=== PATIENT | female | born 1945 | race Caucasian/White ===

== ENCOUNTER → 2016-07-19 | Outpatient (CLI) | payer MEDICARE ==
[~2016-07-19] MED LIST: ALBU25IPRN INH; ALBU8I INH; AZIT250T3 PO; BENZ100 PO; CARV3.125 PO; FURO1TAB62 PO; FURO20 PO; OXYGENTANK NAS.CANULA; SPIRCAP INH; VENTAER INH
[2016-07-19 08:17] LABS: AUTOMATED NEUTROPHIL # 3.2 TH/MM3 (1.8-7.7); BASOPHIL % 0.9 % (0.0-2.0); EOSINOPHIL # 0.2 TH/MM3 (0-0.4); EOSINOPHIL % 4.2 % (0.0-4.0); HEMATOCRIT 40.4 % (35.0-46.0); HEMO FLAGS DIFF FINAL; LYMPH % 22.4 % (9.0-44.0); LYMPHOCYTE # 1.2 TH/MM3 (1.0-4.8); MEAN CELL VOLUME 94.3 FL (80.0-100.0); MEAN CORPUSCULAR HEMOGLOBIN 31.5 PG (27.0-34.0); MEAN CORPUSCULAR HGB CONC 33.4 % (32.0-36.0); MONO % 11.3 % (0.0-8.0); NEUT % 61.2 % (16.0-70.0); PLATELET COUNT 232 TH/MM3 (150-450); RED BLOOD COUNT 4.29 MIL/MM3 (4.00-5.30); RED CELL DISTRIBUTION WIDTH 13.9 % (11.6-17.2); WHITE BLOOD COUNT 5.3 TH/MM3 (4.0-11.0)
[2016-07-19 08:23] LABS: ANION GAP 7 MEQ/L (5-15); AST (GOT) 20 U/L (15-37); BICARBONATE 27.2 MEQ/L (21.0-32.0); BLOOD UREA NITROGEN 14 MG/DL (7-18); CHLORIDE 106 MEQ/L (98-107); GLOMERULAR FILTRATION RATE 56 ML/MIN (>89); GLUCOSE,FASTING 109 MG/DL (74-99); POTASSIUM 4.7 MEQ/L (3.5-5.1); SODIUM (NA) 140 MEQ/L (136-145)
[2016-07-19 08:56] LABS: ALKALINE PHOSPHATASE 78 U/L (45-117); ALT (GPT) 41 U/L (10-53); FREE T4 1.09 NG/DL (0.76-1.46); HDL CHOLESTEROL 40.2 MG/DL (40.0-60.0); LDL CHOLESTEROL 102 MG/DL (0-99); TOTAL BILIRUBIN ADULT 0.7 MG/DL (0.2-1.0)
[2016-07-19 15:58] LABS: HEMOGLOBIN A1a 1.3 %; HEMOGLOBIN A1b 0.8 %; HEMOGLOBIN Ao 85.3 %; HEMOGLOBIN F 0.8 %; HEMOGLOBIN P3 3.8 %
== END ==
LOC: CLAB 07:32
PROVIDERS: ATTEND Family Medicine
DX: J44.0 Chronic obstructive pulmonary disease with (acute) lower respiratory infection (principal); I50.30 Unspecified diastolic (congestive) heart failure; E55.9 Vitamin D deficiency, unspecified; Z79.899 Other long term (current) drug therapy; I10 Essential (primary) hypertension; E03.8 Other specified hypothyroidism
CPT/HCPCS: 36415; 80053; 80061; 82306; 82607; 83036; 84439; 84443; 84480; 85025

== ENCOUNTER → 2016-08-22 | Outpatient (CLI) | payer MEDICARE ==
[2016-08-22 10:07] LABS: AUTOMATED NEUTROPHIL # 5.2 TH/MM3 (1.8-7.7); BASOPHIL # 0.1 TH/MM3 (0-0.2); EOSINOPHIL # 0.1 TH/MM3 (0-0.4); EOSINOPHIL % 2.1 % (0.0-4.0); HEMATOCRIT 40.6 % (35.0-46.0); HEMO FLAGS DIFF FINAL; LYMPH % 14.4 % (9.0-44.0); MEAN CELL VOLUME 93.4 FL (80.0-100.0); MEAN CORPUSCULAR HEMOGLOBIN 30.8 PG (27.0-34.0); MONO % 9.2 % (0.0-8.0); NEUT % 73.3 % (16.0-70.0); PLATELET COUNT 220 TH/MM3 (150-450); RED BLOOD COUNT 4.35 MIL/MM3 (4.00-5.30); WHITE BLOOD COUNT 7.1 TH/MM3 (4.0-11.0)
== END ==
LOC: CLAB 09:36
PROVIDERS: ATTEND Family Medicine
DX: D64.9 Anemia, unspecified (principal); E61.1 Iron deficiency
CPT/HCPCS: 36415; 82607; 85025

== ENCOUNTER 2016-09-02 10:49 | Inpatient (IN) | payer MEDICARE ==
[2016-09-02] VITALS (7 sets, daily range): BP systolic 104–133; BP diastolic 55–78; PULSE 84–98; RESP 16–20; TEMP 97.2–97.8; O2SAT 92–98
[~2016-09-02] VITALS: Ht 162.6 cm; Wt 55.5 kg
[~2016-09-02 10:49] MED LIST changes: -AZIT250T3 PO; -BENZ100 PO; -FURO1TAB62 PO; -OXYGENTANK NAS.CANULA; -VENTAER INH
[2016-09-02] MEDS ORDERED: methylPREDNISolone SOD SUCC 125 MG/2 ML VIAL IVP ONE (11:30)
[2016-09-02] MEDS ORDERED: RESP: ALBUTEROL 2.5 MG/IPRATROPIUM 0.5 MG NEB (SCH) INH ONE (11:30)
[2016-09-02] MEDS ORDERED: SODIUM CHLORIDE 0.9% FLUSH 10 ML FLUSH IVF PRN (11:30)
--- NOTE | 2016-09-02 11:33 | PD ---
HPI Chief Complaint: Respiratory Symptoms Time Seen by Provider: 11:28 Travel History International Travel<30 days: No Contact w/Intl Traveler<30days: No Traveled to known affect area: No History of Present Illness HPI 71-year-old female presents to the emergency department for evaluation of shortness of breath. She states she has been having intermittent symptoms over the past 3 months, but these worsened in the past 3 days. She reports increasing shortness of breath, especially at night. She states she cannot lay flat and will wake up and have to sit up due to dyspnea. The patient reports history of COPD, CHF. She states that she is due to have an aortic valve replacement in October. Her electromechanical equipment assembler is Dr. Morales. Her primary care physician is Dr. Fierro. She does state that she had radiation done in February 2016 for lung nodules. She is not currently undergoing any chemotherapy or radiation. Patient states that she was having abdominal bloating for the past 3 days. However, this has resolved. She states that when she has abdominal bloating, she feels like it pushes up and causes be short of breath. She currently denies any abdominal pain. No nausea, vomiting, diarrhea. She states she was admitted in October 2015 for CHF and had to undergo a thoracentesis due to fluid in her lungs. She reports similar feeling this time. Patient denies any recent surgery or travel. No hemoptysis. She denies any leg edema. No history DVT or PE. Patient is fully tachycardic upon my exam with heart rate in the low 100s. Patient states she has some minor left lower chest pain with coughing only. She denies any fevers or chills. She states she saw her primary care physician earlier this month and was given amoxicillin and cough syrup for a sinus infection. Patient is a current tobacco smoker. PFSH Past Medical History Arthritis: Yes Asthma: No Anxiety: Yes Depression: Yes (POST ) Cancer: Yes (L BREAST CA 2002, LUNG CANCER 2016) Cardiovascular Problems: No High Cholesterol: No Chemotherapy: Yes Chest Pain: No Congestive Heart Failure: Yes COPD: Yes Diabetes: No Diminished Hearing: No Endocrine: No Genitourinary: No Hepatitis: No Hiatal Hernia: No Hypertension: Yes Immune Disorder: No Implanted Vascular Access Dvce: Yes (PORT R CHEST ) Musculoskeletal: Yes (ARTHRITIS) Neurologic: No Psychiatric: No Reproductive: No Respiratory: Yes Radiation Therapy: Yes Sleep Apnea: No Thyroid Disease: No ?: Not : 3 Para: 2 Miscarriage: 1 : 0 Past Surgical History AICD: No Body Medical Devices: CHEMOPORT, HARDWARE LEFT ANKLE Joint Replacement: No Oral Surgery: Yes (DENTAL EXTRACTION) Pacemaker: No Thoracic Surgery: Yes (AXILLARY LYMPH NODE DISECTION, LUMPECTOMY) Other Surgery: Yes (PORT PLACEMENT) Social History Alcohol Use: No Tobacco Use: Yes (1/2 PPD) Substance Use: No Allergies-Medications (Allergen,Severity, Reaction): Coded Allergies: Oxycodone (Verified Allergy, Severe, VOMITING, 09/02/16) Morphine (Verified Adverse Reaction, Unknown, nausea and vomiting, 09/02/16) Reported Meds & Prescriptions Reported Meds & Active Scripts Active Reported Tessalon Perles (Benzonatate) 100 Mg Cap 100 Mg PO DAILY Lasix (Furosemide) 20 Mg Tab 20 Mg PO DAILY Coreg (Carvedilol) 3.125 Mg Tab 3.125 Mg PO BID Review of Systems Except as stated in HPI: all other systems reviewed are Neg Physical Exam Narrative GENERAL: Well-nourished, well-developed elderly female patient, ambulatory. Afebrile. SKIN: Focused skin assessment warm/dry. HEAD: Normocephalic. Atraumatic. EYES: No scleral icterus. No injection or drainage. NECK: Supple, trachea midline. No JVD or lymphadenopathy. CARDIOVASCULAR: Regular rhythm without murmurs, gallops, or rubs. Patient is slightly tachycardic with heart rate in the low 100s. RESPIRATORY: Breath sounds equal bilaterally. No accessory muscle use. Lungs sounds with minor expiratory wheezes noted throughout. GASTROINTESTINAL: Abdomen soft, non-tender, nondistended. No abdominal pain to palpation. MUSCULOSKELETAL: No cyanosis, or edema. BACK: Nontender without obvious deformity. No CVA tenderness. Data Data Last Documented VS Vital Signs Date Time Temp Pulse Resp B/P Pulse Ox O2 Delivery O2 Flow Rate FiO2 09/02/16 11:59 95 Room Air 09/02/16 11:59 20 09/02/16 11:45 21 09/02/16 10:54 97.8 84 133/78 Orders Complete Blood Count With Diff (09/02/16 11:26) Comprehensive Metabolic Panel (09/02/16 11:26) B-Type Natriuretic Peptide (09/02/16 11:26) D-Dimer (09/02/16 11:26) Magnesium (Mg) (09/02/16 11:26) Ckmb (Isoenzyme) Profile (09/02/16 11:26) Troponin I (09/02/16 11:26) Iv Access Insert/Monitor (09/02/16 11:26) Electrocardiogram (09/02/16 11:26) Ecg Monitoring (09/02/16 11:26) Oximetry (09/02/16 11:26) Oxygen Administration (09/02/16 11:26) Chest, Single Ap (09/02/16 11:26) Sodium Chloride 0.9% Flush (Ns Flush) (09/02/16 11:30) Methylprednisolone So Succ Inj (Solumedr (09/02/16 11:30) Albuterol-Ipratropium Neb (Duoneb Neb) (09/02/16 11:30) Lipase (09/02/16 11:26) Furosemide Inj (Lasix Inj) (09/02/16 12:30) Ct Pulmonary Angiogram (09/02/16 ) CKMB (09/02/16 11:45) CKMB% (09/02/16 11:45) Labs Laboratory Tests Test 09/02/16 11:45 White Blood Count 8.2 TH/MM3 Red Blood Count 4.62 MIL/MM3 Hemoglobin 14.2 GM/DL Hematocrit 43.5 % Mean Corpuscular Volume 94.2 FL Mean Corpuscular Hemoglobin 30.7 PG Mean Corpuscular Hemoglobin 32.6 % Concent Red Cell Distribution Width 14.6 % Platelet Count 258 TH/MM3 Mean Platelet Volume 10.4 FL Neutrophils (%) (Auto) 69.7 % Lymphocytes (%) (Auto) 17.9 % Monocytes (%) (Auto) 8.7 % Eosinophils (%) (Auto) 2.2 % Basophils (%) (Auto) 1.5 % Neutrophils # (Auto) 5.8 TH/MM3 Lymphocytes # (Auto) 1.5 TH/MM3 Monocytes # (Auto) 0.7 TH/MM3 Eosinophils # (Auto) 0.2 TH/MM3 Basophils # (Auto) 0.1 TH/MM3 CBC Comment DIFF FINAL Differential Comment D-Dimer Quantitative (PE/DVT) 0.92 MG/L FEU Sodium Level 134 MEQ/L Potassium Level 5.0 MEQ/L Chloride Level 101 MEQ/L Carbon Dioxide Level 25.3 MEQ/L Anion Gap 8 MEQ/L Blood Urea Nitrogen 12 MG/DL Creatinine 0.97 MG/DL Estimat Glomerular Filtration 57 ML/MIN Rate Random Glucose 146 MG/DL Calcium Level 8.8 MG/DL Magnesium Level 2.1 MG/DL Total Bilirubin 1.0 MG/DL Aspartate Amino Transf 54 U/L (AST/SGOT) Alanine Aminotransferase 45 U/L (ALT/SGPT) Alkaline Phosphatase 74 U/L Total Creatine Kinase 165 U/L Creatine Kinase MB 1.5 NG/ML Troponin I 0.06 NG/ML B-Type Natriuretic Peptide 1639 PG/ML Total Protein 7.5 GM/DL Albumin 3.4 GM/DL Lipase 74 U/L [facility] Medical Decision Making Medical Screen Exam Complete: Yes Emergency Medical Condition: Yes Medical Record Reviewed: Yes Interpretation(s) Last Impressions Chest X-Ray 09/02/16 1126 Signed Impressions: Service Date/Time: Friday, September 02, 2016 11:34 - CONCLUSION: Increasing congestive failure. Benson Condon MD FACR Differential Diagnosis COPD versus CHF versus PE versus URI versus bronchitis versus pneumonia Narrative Course 71-year-old female presents to the emergency department for evaluation of worsening shortness of breath, unable to lay flat for the past 3 days. EKG, CBC , CMP, lipase, CK, troponin, BNP, magnesium, d-dimer are ordered and pending. Chest x-ray is ordered and pending. Patient is given DuoNeb 1 and Solu-Medrol 125 mg IV. EKG shows sinus rhythm, no acute ST changes, heart rate 97. CBC is unremarkable. CMP shows sodium 134, glucose 146. Lipase is 74. CK is 165. Troponin is slightly elevated at 0.06. BNP is 1639. Magnesium is 2.1. D- dimer is elevated 0.92. Chest x-ray shows moderate pleural effusion present on the left occupying approximately one third of left hemothorax. CT pulmonary angiogram is ordered and pending. I spoke to Dr. Fierro's nurse practitioner, Susie, who accepted admission. She is aware that CT pulmonary angiogram is pending. Diagnosis Primary Impression: Pleural effusion Additional Impressions: Systolic CHF Qualified Code: I50.23 - Acute on chronic systolic congestive heart failure Elevated troponin Admitting Information Admitting Physician Requests: Admit Ingrid Gutierres Sep 02, 2016 11:33
[2016-09-02 12:06] LABS: AUTOMATED NEUTROPHIL # 5.8 TH/MM3 (1.8-7.7); BASOPHIL # 0.1 TH/MM3 (0-0.2); BASOPHIL % 1.5 % (0.0-2.0); EOSINOPHIL # 0.2 TH/MM3 (0-0.4); EOSINOPHIL % 2.2 % (0.0-4.0); HEMATOCRIT 43.5 % (35.0-46.0); HEMO FLAGS DIFF FINAL; LYMPH % 17.9 % (9.0-44.0); LYMPHOCYTE # 1.5 TH/MM3 (1.0-4.8); MEAN CELL VOLUME 94.2 FL (80.0-100.0); MEAN CORPUSCULAR HEMOGLOBIN 30.7 PG (27.0-34.0); MEAN CORPUSCULAR HGB CONC 32.6 % (32.0-36.0); MONO % 8.7 % (0.0-8.0); NEUT % 69.7 % (16.0-70.0); PLATELET COUNT 258 TH/MM3 (150-450); RED BLOOD COUNT 4.62 MIL/MM3 (4.00-5.30); RED CELL DISTRIBUTION WIDTH 14.6 % (11.6-17.2); WHITE BLOOD COUNT 8.2 TH/MM3 (4.0-11.0)
[2016-09-02] MEDS ORDERED: FURO1TAB62 PO (12:09)
[2016-09-02] MEDS ORDERED: BENZ100 PO (12:09)
[2016-09-02] MEDS ORDERED: CARV3.125 PO (12:09)
--- NOTE | 2016-09-02 12:14 | RADRPT ---
EXAM DATE/TIME: 09/02/2016 11:34 [facility] COMPARISON: CHEST SINGLE AP, October 14, 2015, 9:44. INDICATIONS : Shortness of breath. MEDICAL HISTORY : Carcinoma, breast. Carcinoma, lung. Congestive heart failure. Chronic obstructive pulmonary disea se. Emphysema. SURGICAL HISTORY : None. ENCOUNTER: Initial ACUITY: 2 weeks PAIN SCORE: 0/10 LOCATION: Chest FINDINGS: PICC line is in good position. Right lung is clear. Moderate pleural effusion is present on the lef t occupying approximately one-third of the left hemithorax. Heart is minimally enlarged. Mild inter stitial edema is present. CONCLUSION: Increasing congestive failure. Benson Condon MD FACR on September 02, 2016 at 12:08 Board Certified Radiologist. This report was verified electronically.
[2016-09-02] MEDS ORDERED: FUROSEMIDE 40 MG/4 ML VIAL IV PUSH ONE (12:30)
[2016-09-02 12:48] LABS: ALKALINE PHOSPHATASE 74 U/L (45-117); ALT (GPT) 45 U/L (10-53); ANION GAP 8 MEQ/L (5-15); AST (GOT) 54 U/L (15-37); BICARBONATE 25.3 MEQ/L (21.0-32.0); BLOOD UREA NITROGEN 12 MG/DL (7-18); CHLORIDE 101 MEQ/L (98-107); CREATINE KINASE 165 U/L (26-192); GLOMERULAR FILTRATION RATE 57 ML/MIN (>89); MAGNESIUM 2.1 MG/DL (1.5-2.5); SODIUM (NA) 134 MEQ/L (136-145)
[2016-09-02 13:05] LABS: CKMB 1.5 NG/ML (0.5-3.6)
--- NOTE | 2016-09-02 14:13 | PD ---
Physical Exam Date Seen by Provider: Sep 02, 2016 Time Seen by Provider: 12:50 Narrative I, Dr. Lozada, have reviewed the advance practice practitioner's documentation and am in agreement, met with the patient face to face, made the diagnosis, and the medical decision making was done by me. *My assessment and Findings: Patient seen and evaluated with PA, here with shortness of breath and dyspnea on exertion, please see PA note for further details. Patient has decreased breath sounds at the bases, crackles bibasilarly. Previous history of COPD and CHF. Initially started on treatment for both. However, lab work returns showing significant BNP elevation and chest x-ray negative of CHF with pleural effusion. At this point, patient was given Lasix and my plan would be to admit the patient for further treatment. Laboratory Tests Test 09/02/16 11:45 Monocytes (%) (Auto) 8.7 % (0.0-8.0) D-Dimer Quantitative (PE/DVT) 0.92 MG/L FEU (0.00-0.50) Sodium Level 134 MEQ/L (136-145) Estimat Glomerular Filtration 57 ML/MIN (>89) Rate Random Glucose 146 MG/DL (74-106) Aspartate Amino Transf 54 U/L (15-37) (AST/SGOT) Troponin I 0.06 NG/ML (0.02-0.05) B-Type Natriuretic Peptide 1639 PG/ML (0-100) Last 24 hours Impressions Chest X-Ray 09/02/16 1126 Signed Impressions: Service Date/Time: Friday, September 02, 2016 11:34 - CONCLUSION: Increasing congestive failure. Benson Condon MD FACR Data Data Last Documented VS Vital Signs Date Time Temp Pulse Resp B/P Pulse Ox O2 Delivery O2 Flow Rate FiO2 09/02/16 11:59 95 Room Air 09/02/16 11:59 20 09/02/16 11:45 21 09/02/16 10:54 97.8 84 133/78 Orders Complete Blood Count With Diff (09/02/16 11:26) Comprehensive Metabolic Panel (09/02/16 11:26) B-Type Natriuretic Peptide (09/02/16 11:26) D-Dimer (09/02/16 11:26) Magnesium (Mg) (09/02/16 11:26) Ckmb (Isoenzyme) Profile (09/02/16 11:26) Troponin I (09/02/16 11:26) Iv Access Insert/Monitor (09/02/16 11:26) Electrocardiogram (09/02/16 11:26) Ecg Monitoring (09/02/16 11:26) Oximetry (09/02/16 11:26) Oxygen Administration (09/02/16 11:26) Chest, Single Ap (09/02/16 11:26) Sodium Chloride 0.9% Flush (Ns Flush) (09/02/16 11:30) Methylprednisolone So Succ Inj (Solumedr (09/02/16 11:30) Albuterol-Ipratropium Neb (Duoneb Neb) (09/02/16 11:30) Lipase (09/02/16 11:26) Furosemide Inj (Lasix Inj) (09/02/16 12:30) Ct Pulmonary Angiogram (09/02/16 ) CKMB (09/02/16 11:45) CKMB% (09/02/16 11:45) Admit Order (Ed Use Only) (09/02/16 13:56) Labs Laboratory Tests Test 09/02/16 11:45 White Blood Count 8.2 TH/MM3 Red Blood Count 4.62 MIL/MM3 Hemoglobin 14.2 GM/DL Hematocrit 43.5 % Mean Corpuscular Volume 94.2 FL Mean Corpuscular Hemoglobin 30.7 PG Mean Corpuscular Hemoglobin 32.6 % Concent Red Cell Distribution Width 14.6 % Platelet Count 258 TH/MM3 Mean Platelet Volume 10.4 FL Neutrophils (%) (Auto) 69.7 % Lymphocytes (%) (Auto) 17.9 % Monocytes (%) (Auto) 8.7 % Eosinophils (%) (Auto) 2.2 % Basophils (%) (Auto) 1.5 % Neutrophils # (Auto) 5.8 TH/MM3 Lymphocytes # (Auto) 1.5 TH/MM3 Monocytes # (Auto) 0.7 TH/MM3 Eosinophils # (Auto) 0.2 TH/MM3 Basophils # (Auto) 0.1 TH/MM3 CBC Comment DIFF FINAL Differential Comment D-Dimer Quantitative (PE/DVT) 0.92 MG/L FEU Sodium Level 134 MEQ/L Potassium Level 5.0 MEQ/L Chloride Level 101 MEQ/L Carbon Dioxide Level 25.3 MEQ/L Anion Gap 8 MEQ/L Blood Urea Nitrogen 12 MG/DL Creatinine 0.97 MG/DL Estimat Glomerular Filtration 57 ML/MIN Rate Random Glucose 146 MG/DL Calcium Level 8.8 MG/DL Magnesium Level 2.1 MG/DL Total Bilirubin 1.0 MG/DL Aspartate Amino Transf 54 U/L (AST/SGOT) Alanine Aminotransferase 45 U/L (ALT/SGPT) Alkaline Phosphatase 74 U/L Total Creatine Kinase 165 U/L Creatine Kinase MB 1.5 NG/ML Troponin I 0.06 NG/ML B-Type Natriuretic Peptide 1639 PG/ML Total Protein 7.5 GM/DL Albumin 3.4 GM/DL Lipase 74 U/L [facility] Medical Record Reviewed: Yes Supervised Visit with ROXY: Yes Diagnosis Primary Impression: Pleural effusion Additional Impressions: Systolic CHF Qualified Code: I50.23 - Acute on chronic systolic congestive heart failure Elevated troponin Admitting Information Admitting Physician Requests: Admit Neelam Lozada MD Sep 02, 2016 14:13
[2016-09-02] MEDS ORDERED: IBUPROFEN 400 MG TAB PO PRN (14:15)
[2016-09-02] MEDS ORDERED: ONDANSETRON HCL 4 MG/2 ML VIAL IVP PRN (14:15)
[2016-09-02] MEDS ORDERED: ACETAMINOPHEN 325 MG TAB PO PRN ×2 (14:15)
[2016-09-02] MEDS ORDERED: BISACODYL 10 MG SUPP RECTAL PRN (14:15)
[2016-09-02] MEDS ORDERED: IOHEXOL 350 MG/ML 10 ML VIAL (for RAD DIAG) IV ONE (14:36)
--- NOTE | 2016-09-02 14:44 | RADRPT ---
EXAM DATE/TIME: 09/02/2016 14:21 [facility] COMPARISON: CT PULMONARY ANGIOGRAM, October 07, 2015, 18:20. INDICATIONS : Shortness of breath for three days. IV CONTRAST: 70 cc Omnipaque 350 (iohexol) IV RADIATION DOSE: 20.76 CTDIvol (mGy) MEDICAL HISTORY : Chronic obstructive pulmonary disease. Congestive heart failure. Carcinoma, lung. SURGICAL HISTORY : Lumpectomy, lymph node dissection ENCOUNTER: Initial ACUITY: 3 days PAIN SCALE: 0/10 LOCATION: Bilateral chest TECHNIQUE: Volumetric scanning of the chest was performed using a pulmonary embolism protocol MIP images were re constructed. Using automated exposure control and adjustment of the mA and/or kV according to patien t size, radiation dose was kept as low as reasonably achievable to obtain optimal diagnostic quality images. FINDINGS: Coarse interstitial changes are seen throughout both lungs. There is a small pleural effusion occupy ing approximately 20% of the left hemithorax. The heart is enlarged. There is reflux of contrast into the hepatic veins. This can be seen with ri ght heart failure. There is good visualization of the central pulmonary vessels. There is no evidence for central pulmo nary emboli. There is no pericardial effusion. CONCLUSION: Cardiomegaly with mild congestive failure with a left pleural effusion occupying approximately 20% of the left hemithorax. Benson Condon MD FACR on September 02, 2016 at 14:39 Board Certified Radiologist. This report was verified electronically.
[2016-09-03] VITALS (8 sets, daily range): BP systolic 94–100; BP diastolic 51–63; PULSE 73–102; RESP 20–26; TEMP 97.4–97.6; O2SAT 93–96
--- NOTE | 2016-09-03 00:06 | EKG ---
Date Performed: 09/02/2016 Time Performed: 11:54:55 PTAGE: 71 years EKG: Sinus rhythm WITH OCCASIONAL SUPRAVENTRICULAR PREMATURE COMPLEXES ST DEVIATION AND MODERATE T-WAVE ABNORMALITY, C ONSIDER LATERAL ISCHEMIA ABNORMAL ECG PREVIOUS TRACING : 10/09/2015 11.22 DOCTOR: Cynthia Berumen Interpretating Date/Time 09/03/2016 00:05:13
[2016-09-03 08:30] LABS: ALKALINE PHOSPHATASE 68 U/L (45-117); ALT (GPT) 32 U/L (10-53); ANION GAP 10 MEQ/L (5-15); AST (GOT) 14 U/L (15-37); BICARBONATE 26.2 MEQ/L (21.0-32.0); BLOOD UREA NITROGEN 17 MG/DL (7-18); CHLORIDE 101 MEQ/L (98-107); GLOMERULAR FILTRATION RATE 62 ML/MIN (>89); POTASSIUM 3.9 MEQ/L (3.5-5.1); SODIUM (NA) 137 MEQ/L (136-145); TOTAL BILIRUBIN ADULT 0.7 MG/DL (0.2-1.0)
--- NOTE | 2016-09-03 09:54 | HHI.HP ---
History of Present Illness Primary Care Physician Jayme Fierro, DO Admission Diagnosis CHF exacerbation, left pleural effusion, elevated troponin Diagnoses: (1) Pleural effusion Diagnosis: Principal (2) Cardiomyopathy Diagnosis: Principal (3) COPD (chronic obstructive pulmonary disease) History of Present Illness pt presented to ED with progressive SOB she has had problems with breathing for some time she scheduled for an aortic valve replacement and sees dr Morales he had recently referred her to cv surgery for repair/replacement or TAVR she became dyspenic before she was able to make her appointment. cxr upoadm to ED showed large left pleural effusion she was diuresed and is more comfortable now Review of Systems Constitutional: COMPLAINS OF: Fatigue Cardiovascular: COMPLAINS OF: Dyspnea on Exertion Past Family Social History Allergies: Coded Allergies: Oxycodone (Verified Allergy, Severe, VOMITING, 09/02/16) Morphine (Verified Adverse Reaction, Unknown, nausea and vomiting, 09/02/16) Past Medical History chf aortic stenosis left breast cancer Past Surgical History orif left ankle left breast lumpectomy Reported Medications Current Medications Medications (Trade) Dose Ordered Sig/Tamir Route PRN Reason Start Time Stop Time Status Last Admin Dose Admin Sodium Chloride (NS Flush) 2 ml UNSCH PRN IVF FLUSH AFTER USING IV ACCESS 09/02/16 11:30 Acetaminophen (Tylenol) 650 mg Q4H PRN PO TEMP > 100.4 09/02/16 14:15 Ondansetron HCl (Zofran Inj) 4 mg Q6H PRN IVP NAUSEA OR VOMITING 09/02/16 14:15 Bisacodyl (Dulcolax Supp) 10 mg DAILY PRN RECTAL CONSTIPATION 09/02/16 14:15 Acetaminophen (Tylenol) 650 mg Q6H PRN PO PAIN SCALE 1 TO 2 09/02/16 14:15 Ibuprofen (Motrin) 400 mg Q6H PRN PO PAIN SCALE 1 TO 2 09/02/16 14:15 Active Ordered Medications Current Medications Medications (Trade) Dose Ordered Sig/Tamir Route PRN Reason Start Time Stop Time Status Last Admin Dose Admin Sodium Chloride (NS Flush) 2 ml UNSCH PRN IVF FLUSH AFTER USING IV ACCESS 09/02/16 11:30 Acetaminophen (Tylenol) 650 mg Q4H PRN PO TEMP > 100.4 09/02/16 14:15 Ondansetron HCl (Zofran Inj) 4 mg Q6H PRN IVP NAUSEA OR VOMITING 09/02/16 14:15 Bisacodyl (Dulcolax Supp) 10 mg DAILY PRN RECTAL CONSTIPATION 09/02/16 14:15 Acetaminophen (Tylenol) 650 mg Q6H PRN PO PAIN SCALE 1 TO 2 09/02/16 14:15 Ibuprofen (Motrin) 400 mg Q6H PRN PO PAIN SCALE 1 TO 2 09/02/16 14:15 Family History father with heart disease mother with sepsis Social History has now decided to stop smoking does not drink Physical Exam Vital Signs Vital Signs Date Time Temp Pulse Resp B/P Pulse Ox O2 Delivery O2 Flow Rate FiO2 09/03/16 08:00 97.4 74 20 95/53 93 09/03/16 06:28 90 09/03/16 04:00 97.6 73 20 95/52 96 09/03/16 00:00 97.6 74 20 100/54 95 09/02/16 20:00 97.2 85 20 104/55 92 09/02/16 18:15 94 21 09/02/16 16:30 97.7 85 20 114/69 93 09/02/16 15:00 98 18 129/70 95 Nasal Cannula 2 09/02/16 11:59 95 Room Air 09/02/16 11:59 20 95 Room Air 09/02/16 11:45 94 21 09/02/16 11:07 22 09/02/16 10:54 97.8 84 16 133/78 98 Physical Exam GENERAL: This is a well-nourished, well-developed patient, in no apparent distress. SKIN: No rashes, ecchymoses or lesions. Cool and dry. HEAD: Atraumatic. Normocephalic. No temporal or scalp tenderness. EYES: Pupils equal round and reactive. Extraocular motions intact. No scleral icterus. No injection or drainage. ENT: Nose without bleeding, purulent drainage or septal hematoma. Throat without erythema, tonsillar hypertrophy or exudate. Uvula midline. Airway patent. NECK: Trachea midline. No JVD or lymphadenopathy. Supple, nontender, no meningeal signs. CARDIOVASCULAR: Regular rate and rhythm without murmurs, gallops, or rubs. RESPIRATORY: diminished sounds left side and bases GASTROINTESTINAL: Abdomen soft, non-tender, nondistended. No hepato-splenomegaly , or palpable masses. No guarding. MUSCULOSKELETAL: Extremities without clubbing, cyanosis, or edema. No joint tenderness, effusion, or edema noted. No calf tenderness. Negative Homans sign bilaterally. NEUROLOGICAL: Awake and alert. Cranial nerves II through XII intact. Motor and sensory grossly within normal limits. Five out of 5 muscle strength in all muscle groups. Normal speech. Laboratory Laboratory Tests Test 09/02/16 09/03/16 11:45 06:50 White Blood Count 8.2 Red Blood Count 4.62 Hemoglobin 14.2 Hematocrit 43.5 Mean Corpuscular Volume 94.2 Mean Corpuscular Hemoglobin 30.7 Mean Corpuscular Hemoglobin 32.6 Concent Red Cell Distribution Width 14.6 Platelet Count 258 Mean Platelet Volume 10.4 Neutrophils (%) (Auto) 69.7 Lymphocytes (%) (Auto) 17.9 Monocytes (%) (Auto) 8.7 Eosinophils (%) (Auto) 2.2 Basophils (%) (Auto) 1.5 Neutrophils # (Auto) 5.8 Lymphocytes # (Auto) 1.5 Monocytes # (Auto) 0.7 Eosinophils # (Auto) 0.2 Basophils # (Auto) 0.1 CBC Comment DIFF FINAL Differential Comment D-Dimer Quantitative (PE/DVT) 0.92 Sodium Level 134 137 Potassium Level 5.0 3.9 Chloride Level 101 101 Carbon Dioxide Level 25.3 26.2 Anion Gap 8 10 Blood Urea Nitrogen 12 17 Creatinine 0.97 0.90 Estimat Glomerular Filtration 57 62 Rate Random Glucose 146 96 Calcium Level 8.8 8.9 Magnesium Level 2.1 Total Bilirubin 1.0 0.7 Aspartate Amino Transf 54 14 (AST/SGOT) Alanine Aminotransferase 45 32 (ALT/SGPT) Alkaline Phosphatase 74 68 Total Creatine Kinase 165 Creatine Kinase MB 1.5 Troponin I 0.06 B-Type Natriuretic Peptide 1639 Total Protein 7.5 6.7 Albumin 3.4 2.9 Lipase 74 Result Diagram: 09/02/16 1145 09/03/16 0650 Imaging Last 48 hours Impressions Chest X-Ray 09/02/16 1126 Signed Impressions: Service Date/Time: Friday, September 02, 2016 11:34 - CONCLUSION: Increasing congestive failure. Benson Condon MD FACR CT Angiography 09/02/16 0000 Signed Impressions: Service Date/Time: Friday, September 02, 2016 14:21 - CONCLUSION: Cardiomegaly with mild congestive failure with a left pleural effusion occupying approximately 20%% of the left hemithorax. Benson Condon MD FACR Course pt diuresed in ED and sent to 1400 in stable condition Assessment and Plan Problem List: (1) Cardiomyopathy Status: Acute (2) COPD (chronic obstructive pulmonary disease) Status: Acute (3) Pleural effusion Status: Acute (4) S/P thoracentesis Status: Acute (5) CHF (congestive heart failure) Status: Acute Plan: improved will continue diuresis and consult cardiology Assessment and Plan cardiology consult nay need surgical/interventional consult foe valve repair/ replacement Discussed Condition With patient Problem Qualifiers (1) COPD (chronic obstructive pulmonary disease): Qualified Code: J44.9 - Chronic obstructive pulmonary disease, unspecified COPD type Jayme Fierro DO Sep 03, 2016 09:54
[2016-09-03] MEDS: TIOTROPIUM BROMIDE 18 MCG INH INH SCH (13:00)
[2016-09-03] MEDS: ALBUTEROL SULFATE 90 MCG/ACT HFA 18 GM INHALER INH SCH ×2 (13:33→16:56)
--- NOTE | 2016-09-03 17:16 | OTSOAPIP ---
TIME SESSION COMPLETED: PM TREATMENT TIME: 0 MINS. CHART REVIEWED. ATTEMPTED TO SEE FOR OT ASSESSMENT HOWEVER RECEIVING NURSING CARE. WILL FOLLOW NEXT DAY. Therapist: IVONNE COONEY OT/Paola Signature on file
[2016-09-03] MEDS: CARVEDILOL 3.125 MG TAB PO SCH (21:00)
[2016-09-04] VITALS (9 sets, daily range): BP systolic 90–98; BP diastolic 52–57; PULSE 77–119; RESP 18–20; TEMP 97.2–98.4; O2SAT 94–98
[2016-09-04 08:13] LABS: AUTOMATED NEUTROPHIL # 7.6 TH/MM3 (1.8-7.7); BASOPHIL # 0.1 TH/MM3 (0-0.2); BASOPHIL % 0.7 % (0.0-2.0); EOSINOPHIL # 0.2 TH/MM3 (0-0.4); EOSINOPHIL % 1.6 % (0.0-4.0); HEMATOCRIT 41.7 % (35.0-46.0); HEMO FLAGS DIFF FINAL; LYMPH % 12.5 % (9.0-44.0); LYMPHOCYTE # 1.2 TH/MM3 (1.0-4.8); MEAN CELL VOLUME 92.9 FL (80.0-100.0); MEAN CORPUSCULAR HEMOGLOBIN 30.8 PG (27.0-34.0); MEAN CORPUSCULAR HGB CONC 33.2 % (32.0-36.0); MONO % 8.8 % (0.0-8.0); NEUT % 76.4 % (16.0-70.0); PLATELET COUNT 229 TH/MM3 (150-450); RED BLOOD COUNT 4.49 MIL/MM3 (4.00-5.30); RED CELL DISTRIBUTION WIDTH 14.6 % (11.6-17.2); WHITE BLOOD COUNT 9.9 TH/MM3 (4.0-11.0)
--- NOTE | 2016-09-04 08:32 | MB ---
cc: EMILY MORALES HANSCY M.D. KHANNA, SOHIT K. MD [facility] DATE OF CONSULTATION: 09/03/2016 REASON FOR CONSULTATION Shortness of breath, uncompensated heart failure. HISTORY OF PRESENT ILLNESS Mrs. Lugo is a 71-year-old female with a history of breast cancer around 2002. She had previous lymph node resection and chemotherapy. She was found in October with a left lung mass. She received radiation therapy. She had a pleural effusion that was drained at that time. She had aortic stenosis that was evaluated by Dr. Morales and referred for valve replacement or TAVR. She is supposed to have an appointment next week with the CV surgeon at [facility]. She developed in the past couple of days shortness of breath. She had a left pleural effusion. I was consulted for further evaluation and management. The chart was reviewed. The patient was evaluated. ALLERGIES 1. OXYCODONE. 2. MORPHINE. SOCIAL HISTORY Negative for smoking and drinking. FAMILY HISTORY Noncontributory to her current medical condition. MEDICATIONS 1. Acetaminophen. 2. Coreg. 3. Lasix. 4. Ibuprofen. 5. Spiriva. REVIEW OF SYSTEMS Currently she refers no chest pain, shortness of breath improved. No vomiting. No fever. PHYSICAL EXAMINATION GENERAL: Alert, fully oriented. VITAL SIGNS: Blood pressure 100/63, pulse 97, respiratory rate 20. LUNGS: Decreased left-sided ventilation. CARDIOVASCULAR: S1, S2. There is no murmur. ABDOMEN: Soft. No mass. EXTREMITIES: No edema. ELECTROCARDIOGRAM Electrocardiogram shows sinus rhythm, LVH, diffuse ST changes. LABORATORY Hemoglobin 14.2, white blood cell count 8.2. Potassium 3.9. Creatinine 0.90. Troponin 0.06. BNP around 1640. ASSESSMENT AND RECOMMENDATION Mrs. Lugo is currently stable. She is doing better. There is a left pleural effusion. Shortness of breath has significantly improved. Blood pressure is too low to optimize medication. She was managed between 95/50 to 95/53. This is the first time today she is 100 of systolic. At this point my recommendation is to continue with current management. She is supposed to have her appointment with CV surgery for valve surgery. I am going to place a consult to Dr. Pablo. Further evaluation in the morning by Dr. Morales. Case discussed with the patient. MD CHRISTINA Wolf /3:55 PM /8:22 AM
[2016-09-04] MEDS ORDERED: FUROSEMIDE 20 MG TAB PO SCH (09:00)
[2016-09-04] MEDS: CARVEDILOL 3.125 MG TAB PO SCH ×3 (09:00→21:00)
[2016-09-04] MEDS: TIOTROPIUM BROMIDE 18 MCG INH INH SCH (09:26)
[2016-09-04] MEDS: BENZONATATE 100 MG CAP PO SCH (09:26)
[2016-09-04] MEDS: FUROSEMIDE 20 MG TAB PO SCH ×2 (09:26→20:20)
[2016-09-04] MEDS: ALBUTEROL SULFATE 90 MCG/ACT HFA 18 GM INHALER INH SCH ×3 (09:26→18:00)
--- NOTE | 2016-09-04 09:33 | RADRPT ---
EXAM DATE/TIME: 09/04/2016 09:08 [facility] COMPARISON: CHEST SINGLE AP, September 02, 2016, 11:34. INDICATIONS : Short of breath, coughing for 3 months MEDICAL HISTORY : Carcinoma, breast. Carcinoma, lung. Chronic obstructive pulmonary disease. CHF, emphysema SURGICAL HISTORY : infusaport and removal of infusaport ENCOUNTER: Subsequent ACUITY: 2 weeks PAIN SCORE: 0/10 LOCATION: Bilateral chest FINDINGS: Moderate left pleural effusion appears slightly improved. Left base consolidation is again noted. Pat leeanna interstitial thickening is present elsewhere in both lungs. Visualized cardiac contours are stabl e. Thoracic skeleton is grossly intact. CONCLUSION: Slightly improved left base aeration Tomasz Vaughan MD on September 04, 2016 at 9:30 Board Certified Radiologist. This report was verified electronically.
[2016-09-05] VITALS (9 sets, daily range): BP systolic 90–127; BP diastolic 50–65; PULSE 70–93; RESP 18–20; TEMP 96–98.5; O2SAT 95–98
[2016-09-05] MEDS: TIOTROPIUM BROMIDE 18 MCG INH INH SCH (08:39)
[2016-09-05] MEDS: CARVEDILOL 3.125 MG TAB PO SCH ×2 (08:39→20:34)
[2016-09-05] MEDS: ALBUTEROL SULFATE 90 MCG/ACT HFA 18 GM INHALER INH SCH ×3 (08:39→18:24)
[2016-09-05] MEDS: FUROSEMIDE 20 MG TAB PO SCH (08:39)
[2016-09-05] MEDS: BENZONATATE 100 MG CAP PO SCH (08:40)
[2016-09-05] MEDS ORDERED: guaiFENesin/DEXTROMETHORPHAN 200 MG/20 MG/10 ML CUP PO PRN (14:30)
--- NOTE | 2016-09-05 14:38 | HHI.PR ---
Subjective History of Present Illness PT SEEN SOB NO CP PALPITATIONS TOOK 02 OFF TO WALK DESATURATED DR BENZ CONSULTED CASE D/W DR RECIO-WOULD LIKE HER TO BE SEEN BY DR AREVALO-CALLED WILL SEE 09/20 IN HIS [facility] OFFICE VOIDING WELL ROBIN LOW 98/60 Review of Systems Constitutional Constitutional: Fatigue, Weakness Pulmonary Respiratory: Shortness of Breath Cardiology CV: Palpitations GI/Abdomen GI/Abdominal Exam: Positive Bowel Movement Genitourinary Genitourinary: Frequency Musculoskeletal MS: Weakness, Discomfort/Pain Neurologic Neurologic: Dizziness Psychiatric Psychiatric: Normal Mood Endocrine Endocrine: Thirst Vitals/Results Intake & Output 09/04/16 09/04/16 09/05/16 15:00 23:00 07:00 Intake Total 840 ml 120 ml 240 ml Balance 840 ml 120 ml 240 ml Intake Oral 840 ml 120 ml 240 ml # Voids 3 0 0 # Bowel Movements 1 0 0 Vital Signs Vital Signs Date Time Temp Pulse Resp B/P Pulse Ox O2 Delivery O2 Flow Rate FiO2 09/05/16 12:00 98.5 78 20 90/61 98 09/05/16 08:08 98 Nasal Cannula 2.00 09/05/16 08:00 97.5 73 20 95/62 97 09/05/16 04:00 97.6 75 18 91/50 96 09/05/16 00:00 97.8 83 20 91/54 97 09/04/16 20:01 78 09/04/16 20:00 97.5 77 18 90/53 95 09/04/16 16:00 98.4 78 18 90/53 97 CBC/BMP: 09/04/16 0746 09/03/16 0650 Physical Exam General General Appearance: Well Developed, No Acute Distress, Malnourished Eyes Eye Exam: Pupils Equal, Pupils Reactive, Sclera White, Extraocular Movement Intact Ears & Nose Ears & Nose Exam: Tympanic Membranes Normal, Auditory Canals Normal, Nasal Mucosa [place], Septum Midline Throat Throat Exam: Oral Mucosa [place] & Moist, Oral Pharynx Normal Neck Neck Exam: Neck Supple, Trachea Midline Pulmonary Resp Exam: Crackles, Decreased Bases, Diminished Breath Sounds Cardiology CV Exam: Regular, Normal Sinus Rhythm, Tachycardia Chest/Breast Chest/Breast Exam: Symmetry Gastrointestinal/Abdomen GI Exam: Soft, Non-Tender, Bowel Sounds Present, Positive Bowel Movement, Peristalsis, No Hepatosplenomegaly, Non-Distended Musculoskeletal MS Exam: Joints Intact, Normal Gait, Normal Tone, Good Strength Integumentary Skin Exam: Clear, Warm, Dry, Intact Extremeties Extremities Exam: No Edema, Pedal Pulses Palpable Neurologic Neuro Exam: Alert, Awake, Oriented, Speech Clear, Moving All Extremities, Progress Worker Equal, No Focal Deficits Psychiatric Psych Exam: Appropriate Responses VTE Prophylaxis VTE Prophylaxis Device: SCDs PUD Prophylasis PUD Prophylaxis: Protonix Assessment/Plan Problem List: (1) CHF (congestive heart failure) Plan: PLAN; PPI 02 IS LASIX DC IBUPROFEN HOLD COREG- BP LOW CASE D/W DR RECIO EVALUATE FOR TAVR CASE D/W DR DEMAR MELCHOR MAG/TSH PT EVAL BNP-1200 REPEAT CXR AM WALKING POX HAS APPOINT WITH DR AREVALO 09/20 1:[address] [facility] ECHO-FAX TO [facility] 40 MINUTES (2) Cardiomyopathy (3) Pleural effusion (4) COPD (chronic obstructive pulmonary disease) (5) Systolic CHF (6) Elevated troponin Discussed Condition with: Patient, Medical Consult Problem Qualifiers (1) COPD (chronic obstructive pulmonary disease): Qualified Code: J44.9 - Chronic obstructive pulmonary disease, unspecified COPD type (2) Systolic CHF: Qualified Code: I50.23 - Acute on chronic systolic congestive heart failure Loni Lee DO Sep 05, 2016 14:38
[2016-09-05] MEDS: AZITHROMYCIN 250 MG TAB PO SCH (17:02)
[2016-09-05] MEDS ORDERED: FUROSEMIDE 20 MG/2 ML VIAL IV PUSH SCH (18:00)
[2016-09-05 18:59] LABS: BICARBONATE 30.8 MEQ/L (21.0-32.0); MAGNESIUM 2.2 MG/DL (1.5-2.5)
--- NOTE | 2016-09-05 19:01 | EC ---
Study Study Date:09/05/2016 STUDY CONCLUSIONS SUMMARY - Left ventricle: The cavity size was dilated. Wall thickness was normal. Systolic function was severely reduced. The estimated ejection fraction was in the range of 20% to 25%. Diffuse hypokinesis. - Aortic valve: Moderately calcified annulus. Trileaflet; moderately calcified leaflets. Transvalvular velocity was increased, due to low cardiac output and stenosis. There was severe stenosis. - Mitral valve: Moderate regurgitation. - Pericardium, extracardiac: There was a left pleural effusion. If LV function is below 40, please consider prescribing an ACEI or ARB or document rationale for non-use. PROCEDURE DATA STUDY STATUS: Elective. Procedure: Transthoracic echocardiography. Image quality was good. Scanning was performed from the parasternal, apical, and subcostal acoustic windows. Study completion: The patient tolerated the procedure well. Transthoracic echocardiography. M-mode, complete 2D, complete spectral Doppler, and color Doppler. Patient status: Inpatient. CARDIAC ANATOMY LEFT VENTRICLE: The cavity size was dilated. Wall thickness was normal. Systolic function was severely reduced. The estimated ejection fraction was in the range of 20% to 25%. Diffuse hypokinesis. AORTIC VALVE: Moderately calcified annulus. Trileaflet; moderately calcified leaflets. Doppler: Transvalvular velocity was increased, due to low cardiac output and stenosis. There was severe stenosis. No regurgitation. Mean gradient: 31mm Hg (S). Peak gradient: 49mm Hg (S). AORTA: Aortic root: The aortic root was normal in size. MITRAL VALVE: Structurally normal valve. Doppler: Transvalvular velocity was within the normal range. There was no evidence for stenosis. Moderate regurgitation. Peak gradient: 3mm Hg (D). LEFT ATRIUM: The atrium was normal in size. RIGHT VENTRICLE: The cavity size was normal. Wall thickness was normal. PULMONIC VALVE: Doppler: Transvalvular velocity was within the normal range. There was no evidence for stenosis. No regurgitation. TRICUSPID VALVE: Structurally normal valve. Doppler: Transvalvular velocity was within the normal range. No regurgitation. PULMONARY ARTERY: The main pulmonary artery was normal-sized. Systolic pressure was within the normal range. RIGHT ATRIUM: The atrium was normal in size. PERICARDIUM: There was no pericardial effusion. SYSTEMIC VEINS: Inferior vena cava: The vessel was normal in size. Pleura: There was a left pleural effusion. BASIC MEASUREMENTS ADULT Normal Left ventricle LV internal dimension, ED, chordal level, *62.7 mm 43-52 PLAX LV internal dimension, ES, chordal level, *57.6 mm 23-38 PLAX Fractional shortening, chordal level, PLAX *8 % >29 LV posterior wall thickness, ED 7.9 mm IVS/LVPW ratio, ED 1.01 <1.3 Ventricular septum Septal thickness, ED 7.95 mm Aorta Root diameter, ED 24 mm Left atrium Anterior-posterior dimension 35 mm DOPPLER MEASUREMENTS ADULT Normal Aortic valve Peak velocity, S 350 cm/s Mean velocity, S 257 cm/s VTI, S 89 cm Mean gradient, S 31 mm Hg Peak gradient, S 49 mm Hg Regurgitant velocity, ED 263 cm/s Regurgitant deceleration 4040 cm/s^2 Regurgitant pressure half-time 286 ms Regurgitant gradient, ED 28 mm Hg Mitral valve Peak E-wave velocity 85.5 cm/s Peak A-wave velocity 32.7 cm/s Deceleration time *106 ms 150-230 Peak gradient, D 3 mm Hg Peak E/A ratio 2.6 Tricuspid valve Regurgitant peak velocity 297 cm/s Peak RV-RA gradient, S 35 mm Hg Maximal regurgitant velocity 297 cm/s LEGEND: Mean values are shown as u=mean value. Asterisk (*) flor values outside specified normal range. Prepared and signed by Clayton Kearns [id number]
--- NOTE | 2016-09-05 21:10 | MB ---
cc: ANNIE BENZ DATE OF CONSULTATION 09/05/[address] Lee. REASON FOR CONSULTATION Evaluate shortness of breath and pleural effusion. HISTORY OF THE PRESENT ILLNESS Ms. Lugo is a 71-year-old female with history of CA of the breast status post lymph node dissection and chemotherapy, then she developed CA of the lung. She had a poorly differentiated adenocarcinoma of the lung. She received radiation therapy and she follows with Dr. Parks. She has aortic stenosis and was being considered for open surgery or TAVR. She has an appointment to see Dr. Patton on September 20 for evaluation for TAVR. The patient came to the hospital with worsening of her shortness of breath. Denies any chest pain. Has cough, small amount of sputum production. No fever or chills. No night sweats. She had a workup done. Her WBC 9.9, hemoglobin 13.8, hematocrit 41.7, MCV 92, platelet count 229. Sodium 113, potassium 4.0, chloride 100, CO2 30, BUN 24, creatinine 1.07. PAST MEDICAL HISTORY Significant for: 1. A history of severe COPD. 2. Aortic stenosis. 3. CA of the lung status post radiation treatment. 4. CA of the breast status post surgery and chemotherapy. MEDICATIONS She is currently takin. Lasix 20 milligrams. 2. Zithromax 500 mg a day. 3. Robitussin DM cough syrup. 4. Tessalon 100 milligrams. 5. Coreg 3.125 milligrams twice a day. 6. Albuterol nebulizer treatments. 7. Spiriva once a day. ALLERGIES SHE IS ALLERGIC TO MORPHINE AND OXYCODONE. SOCIAL HISTORY She has a long history of smoking which she cut down to a few cigarettes. No alcohol abuse. She was still working at [employer] until recently. FAMILY HISTORY She is , lives alone. She has two children. Her grandchildren live nearby who help her. REVIEW OF SYSTEMS She has lost some weight. No hemoptysis. No DVT or pulmonary embolism. No seizure . PHYSICAL EXAMINATION GENERAL: Thin built, elderly female in mild short of breath. VITAL SIGNS: Blood pressure 90/65, heart rate 70, respirations 18, temperature 96. HEENT: Pupils are equal and reactive to light. She has bilateral cataracts. Oral mucosa, nasal mucosa normal. NECK: Supple. JVP not raised. CHEST: She has a few rhonchi. Decreased breath sounds at the left base. CARDIOVASCULAR: S1, S2 normal. ABDOMEN: Benign. EXTREMITIES: No edema. IMPRESSION 1. Moderate-sized left pleural effusion. 2. Severe COPD. 3. Aortic stenosis. 4. Cancer of the lung status post radiation treatment. 5. History of cancer of the breast status post chemotherapy and surgery. 6. Nicotine use. PLAN I advised her not to smoke. She is being evaluated for aortic valve surgery or TAVR. I will get interventional radiology to do thoracentesis and send it for culture, sensitivity and cytology. I advised her strongly to quit smoking. Continue aerosol treatment. Continue Spiriva. Further treatment will depend on the course in the hospital. Thank you Dr. Lee for this consultation. MD ROGER Duffy/STANLEY /7:07 PM /8:42 PM CAROLINE
[2016-09-05 23:16] LABS: APTT (PATIENT) 26.2 SEC (24.3-30.1); PROTHROMBIN TIME - PATIENT 11.4 SEC (9.8-11.6)
[2016-09-06] VITALS (11 sets, daily range): BP systolic 90–113; BP diastolic 50–69; PULSE 66–85; RESP 16–20; TEMP 97–98.2; O2SAT 94–98
--- NOTE | 2016-09-06 06:19 | RADRPT ---
EXAM DATE/TIME: 09/06/2016 06:07 [facility] COMPARISON: CHEST PA & LAT, September 04, 2016, 9:08. INDICATIONS : Shortness of breath. MEDICAL HISTORY : Carcinoma, breast. Carcinoma, lung. Congestive heart failure. Chronic SURGICAL HISTORY : None. ENCOUNTER: Subsequent ACUITY: 4 - 6 days PAIN SCORE: 0/10 LOCATION: Bilateral chest FINDINGS: PA and I'll views of the chest show hyperinflation. Emphysematous changes noted. Small left effusion is stable. No discrete infiltrate. Heart is mildly enlarged. An osteopenic spine is noted. A scolioti c curvature noted. CONCLUSION: 1. Stable small left effusion. 2. COPD. 3. Mild cardiomegaly. Eusebio Downing Jr., MD on September 06, 2016 at 6:17 Board Certified Radiologist. This report was verified electronically.
[2016-09-06 08:15] LABS: ALT (GPT) 23 U/L (10-53); AST (GOT) 13 U/L (15-37); BLOOD UREA NITROGEN 22 MG/DL (7-18); CHLORIDE 101 MEQ/L (98-107); GLOMERULAR FILTRATION RATE 66 ML/MIN (>89); POTASSIUM 4.1 MEQ/L (3.5-5.1); SODIUM (NA) 138 MEQ/L (136-145)
[2016-09-06 08:18] LABS: ALKALINE PHOSPHATASE 65 U/L (45-117); ANION GAP 8 MEQ/L (5-15); BICARBONATE 29.4 MEQ/L (21.0-32.0); TOTAL BILIRUBIN ADULT 0.7 MG/DL (0.2-1.0)
--- NOTE | 2016-09-06 08:27 | PD.CARD.PN ---
Subjective Subjective Remarks Briefly talked with the patient as she was being taken down to radiology for thoracentesis. her breathing is improved. no CP Objective Medications Active Medications Azithromycin (Zithromax) 500 mg Q24H PO Last administered on 09/05/16 17:02; Admin Dose 500 MG; Start 09/05/16 at 15:00 Furosemide (Lasix Inj) 20 mg BID@09,18 IV PUSH Last administered on 09/05/16 18: 23; Admin Dose 20 MG; Start 09/05/16 at 18:00; Stop 09/06/16 at 08:17; Status DC Guaifenesin/ Dextromethorphan (Robitussin Dm 200-20 Mg/10 ml Liq) 10 ml Q6H PRN PO; Start 09/05/16 at 14:30 Vital Signs / I&O Vital Signs Date Time Temp Pulse Resp B/P Pulse Ox O2 Delivery O2 Flow Rate FiO2 09/06/16 08:16 97.0 75 16 96/56 98 09/06/16 04:00 97.0 66 16 96/56 95 09/06/16 00:00 97.8 69 20 90/55 97 09/05/16 20:00 97.3 92 18 127/59 95 09/05/16 19:45 93 09/05/16 19:39 98 Nasal Cannula 2.00 09/05/16 18:16 Nasal Cannula 2.00 09/05/16 16:00 96.0 70 18 90/65 98 09/05/16 12:00 98.5 78 20 90/61 98 I/O 09/05/16 09/05/16 09/05/16 09/06/16 09/06/16 09/06/16 07:00 15:00 23:00 07:00 15:00 23:00 Intake Total 240 ml 480 ml Output Total 1000 ml 4400 ml Balance 240 ml 480 ml -1000 ml -4400 ml Intake Oral 240 ml 480 ml Output Urine Total 1000 ml 4400 ml # Voids 0 3 # Bowel Movements 0 1 2 Physical Exam NECK: Supple, trachea midline. No JVD or lymphadenopathy. CARDIOVASCULAR: Regular rate and rhythm 3/6 SM RESPIRATORY: Breath sounds equal bilaterally. No accessory muscle use. GASTROINTESTINAL: Abdomen soft, non-tender, nondistended. MUSCULOSKELETAL: No cyanosis, or edema. BACK: Nontender without obvious deformity. No CVA tenderness. Laboratory Laboratory Tests Test 09/05/16 09/05/16 09/06/16 18:15 21:38 07:10 Sodium Level 139 MEQ/L 138 MEQ/L Potassium Level 4.0 MEQ/L 4.1 MEQ/L Chloride Level 100 MEQ/L 101 MEQ/L Carbon Dioxide Level 30.8 MEQ/L 29.4 MEQ/L Anion Gap 8 MEQ/L 8 MEQ/L Blood Urea Nitrogen 24 MG/DL 22 MG/DL Creatinine 1.07 MG/DL 0.85 MG/DL Estimat Glomerular Filtration 51 ML/MIN 66 ML/MIN Rate Random Glucose 113 MG/DL 88 MG/DL Calcium Level 8.8 MG/DL 9.0 MG/DL Magnesium Level 2.2 MG/DL Thyroid Stimulating Hormone 2.130 uIU/ML 3rd Gen Prothrombin Time 11.4 SEC Prothromb Time International 1.0 RATIO Ratio Activated Partial 26.2 SEC Thromboplast Time Total Bilirubin 0.7 MG/DL Aspartate Amino Transf 13 U/L (AST/SGOT) Alanine Aminotransferase 23 U/L (ALT/SGPT) Alkaline Phosphatase 65 U/L Total Protein 6.8 GM/DL Albumin 3.0 GM/DL Imaging Last Impressions Chest X-Ray 09/06/16 0600 Signed Impressions: Service Date/Time: Tuesday, September 06, 2016 06:07 - CONCLUSION: 1. Stable small left effusion. 2. COPD. 3. Mild cardiomegaly. Eusebio Downing Jr., MD CT Angiography 09/02/16 0000 Signed Impressions: Service Date/Time: Friday, September 02, 2016 14:21 - CONCLUSION: Cardiomegaly with mild congestive failure with a left pleural effusion occupying approximately 20%% of the left hemithorax. Benson Condon MD FACR Assessment and Plan Assessment and Plan Aortic stenosis - severe. low gradient due to cardiomyopathy and reduced cardiac output. High risk for traditional AVR. Extensive cardiac workup has already been done including right and left heart catheterization at [facility] Clinically improved now. acute on chronic systolic CHF - change lasix to PO. Cr stable. due to hypotension, she will not tolerate titration of medical therapy, ie JEROME or ARB. cont BB as HR and BP allow. lung ca s/p radiation. undergoing thoracentesis now. DC planning. referal already in place for TAVR evaluation at [facility] with Dr. Patton/ Dr. Doll. will follow. Ari Morales MD Sep 06, 2016 08:27
--- NOTE | 2016-09-06 08:47 | RADRPT ---
EXAM DATE/TIME: 09/06/2016 08:04 [facility] COMPARISON: EXTERNAL COMPARISON: US GUIDED THORACENTESIS LEFT, October 08, 2015, 10:35. [facility], CT THORAX, W/O CONTRAST, Jul 11 2016, April 14, 2016. INDICATIONS : Left pleural effusion. MEDICAL HISTORY : Carcinoma, breast. Carcinoma, lung. Congestive heart failure. Heart murmur. Dyspnea. Arthritis. COPD. HTN. SURGICAL HISTORY : Axillary lymph node disection. Lumpectomy. Thoracentesis. Left leg and ankle surgery. Chemotherapy. R adiation therapy. ENCOUNTER: Subsequent ACUITY: 3 days PAIN SCORE: 0/10 LOCATION: Left chest FLUID: Total volume of 450 cc of clear, yellow fluid was removed. Fluid was sent to lab for ordered studies. TECHNIQUE: 1. Ultrasound guidance for thoracentesis. 2. Thoracentesis. The risks, benefits, and alternatives to ultrasound guided thoracentesis were explained to the patien t in lay simple terms, including the risk of bleeding and infection. Written and verbal informed con sent was obtained. Appropriate area for thoracentesis was marked under ultrasound guidance with the patient in the uprig ht position. Overlying skin was prepped and draped in the usual sterile fashion and with local anest hetic, a dermatotomy was made with an 11 blade scalpel. A 6 Green[place]ic thoracentesis catheter was placed in the pleural space and fluid was removed. Catheter was then removed and a sterile dressing applie d. There were no immediate complications. The patient tolerated the procedure well and the left the ultrasound suite in stable condition. Chest radiograph is to be obtained. CONCLUSION: Uncomplicated ultrasound guided thoracentesis. Fluid was sent for ordered studies. Benson Condon MD FACR on September 06, 2016 at 8:45 Board Certified Radiologist. This report was verified electronically.
--- NOTE | 2016-09-06 08:59 | RADRPT ---
EXAM DATE/TIME: 09/06/2016 08:42 [facility] COMPARISON: CHEST PA & LAT, September 06, 2016, 6:07. INDICATIONS : Evaluate for pneumothorax, post thoracentsis MEDICAL HISTORY : Carcinoma, breast. Carcinoma, lung. Congestive heart failure. SURGICAL HISTORY : None. ENCOUNTER: Subsequent ACUITY: 4 - 6 days PAIN SCORE: 0/10 LOCATION: Bilateral chest FINDINGS: There is no evidence of pneumothorax. Left effusion and basilar consolidative change appear slightly worse than on recent earlier film. Lungs elsewhere are again notable for fine patchy interstitial inf iltrate. Mild apical pleural thickening is again noted. Visualized cardiac contours are grossly stabl e. CONCLUSION: No pneumothorax Tomasz Vaughan MD on September 06, 2016 at 8:55 Board Certified Radiologist. This report was verified electronically.
[2016-09-06] MEDS: CARVEDILOL 3.125 MG TAB PO SCH ×2 (09:00→20:25)
[2016-09-06 09:26] LABS: TOTAL PROTEIN,PLEURAL FLUID 2.6 GM/DL
[2016-09-06] MEDS: BENZONATATE 100 MG CAP PO SCH (10:22)
[2016-09-06] MEDS: TIOTROPIUM BROMIDE 18 MCG INH INH SCH (10:23)
[2016-09-06] MEDS: ALBUTEROL SULFATE 90 MCG/ACT HFA 18 GM INHALER INH SCH ×3 (10:23→17:40)
[2016-09-06] MEDS: FUROSEMIDE 20 MG TAB PO SCH (10:29)
--- NOTE | 2016-09-06 12:42 | HHI.PR ---
Subjective History of Present Illness PT SEEN LESS SOB- S/P THORA. NO CP PALPITATIONS TOOK 02 OFF TO WALK DESATURATED DR BENZ INTO SEE HER CASE D/W MINOR VOIDING WELL BP LOW 98/60 Review of Systems Constitutional Constitutional: Fatigue, Weakness Pulmonary Respiratory: Shortness of Breath Cardiology CV: Palpitations GI/Abdomen GI/Abdominal Exam: Positive Bowel Movement Genitourinary Genitourinary: Frequency Musculoskeletal MS: Weakness, Discomfort/Pain Neurologic Neurologic: Dizziness Psychiatric Psychiatric: Normal Mood Endocrine Endocrine: Thirst Vitals/Results Intake & Output 09/05/16 09/05/16 09/06/16 15:00 23:00 07:00 Intake Total 480 ml Output Total 1000 ml 4400 ml Balance 480 ml -1000 ml -4400 ml Intake Oral 480 ml Output Urine Total 1000 ml 4400 ml # Voids 3 # Bowel Movements 1 2 Vital Signs Vital Signs Date Time Temp Pulse Resp B/P Pulse Ox O2 Delivery O2 Flow Rate FiO2 09/06/16 09:00 66 16 99/60 98 09/06/16 08:45 79 16 113/69 98 09/06/16 08:16 97.0 75 16 96/56 98 09/06/16 08:03 97.7 79 16 91/50 95 09/06/16 08:00 85 09/06/16 04:00 97.0 66 16 96/56 95 09/06/16 00:00 97.8 69 20 90/55 97 09/05/16 20:00 97.3 92 18 127/59 95 09/05/16 19:45 93 09/05/16 19:39 98 Nasal Cannula 2.00 09/05/16 18:16 Nasal Cannula 2.00 09/05/16 16:00 96.0 70 18 90/65 98 CBC/BMP: 09/04/16 0746 09/06/16 0710 Lab Results Laboratory Tests Test 09/05/16 09/05/16 09/06/16 09/06/16 18:15 21:38 07:10 08:27 Sodium Level 139 MEQ/L 138 MEQ/L Potassium Level 4.0 MEQ/L 4.1 MEQ/L Chloride Level 100 MEQ/L 101 MEQ/L Carbon Dioxide Level 30.8 MEQ/L 29.4 MEQ/L Anion Gap 8 MEQ/L 8 MEQ/L Blood Urea Nitrogen 24 MG/DL 22 MG/DL Creatinine 1.07 MG/DL 0.85 MG/DL Estimat Glomerular Filtration 51 ML/MIN 66 ML/MIN Rate Random Glucose 113 MG/DL 88 MG/DL Calcium Level 8.8 MG/DL 9.0 MG/DL Magnesium Level 2.2 MG/DL Thyroid Stimulating Hormone 2.130 uIU/ML 3rd Gen Prothrombin Time 11.4 SEC Prothromb Time International 1.0 RATIO Ratio Activated Partial 26.2 SEC Thromboplast Time Total Bilirubin 0.7 MG/DL Aspartate Amino Transf 13 U/L (AST/SGOT) Alanine Aminotransferase 23 U/L (ALT/SGPT) Alkaline Phosphatase 65 U/L Total Protein 6.8 GM/DL Albumin 3.0 GM/DL Pleural Fluid Total Protein 2.6 GM/DL Pleural Fluid LDH 86 U/L Pleural Fluid Glucose 104 MG/DL Microbiology Microbiology 09/06/16 Gram Stain - Final, Resulted 09/06/16 Body Fluid Culture, Resulted Pending Physical Exam General General Appearance: Well Developed, No Acute Distress, Malnourished Eyes Eye Exam: Pupils Equal, Pupils Reactive, Sclera White, Extraocular Movement Intact Ears & Nose Ears & Nose Exam: Tympanic Membranes Normal, Auditory Canals Normal, Nasal Mucosa [place], Septum Midline Throat Throat Exam: Oral Mucosa [place] & Moist, Oral Pharynx Normal Neck Neck Exam: Neck Supple, Trachea Midline Pulmonary Resp Exam: Crackles, Decreased Bases, Diminished Breath Sounds Cardiology CV Exam: Regular, Normal Sinus Rhythm, Tachycardia Chest/Breast Chest/Breast Exam: Symmetry Gastrointestinal/Abdomen GI Exam: Soft, Non-Tender, Bowel Sounds Present, Positive Bowel Movement, Peristalsis, No Hepatosplenomegaly, Non-Distended Musculoskeletal MS Exam: Joints Intact, Normal Gait, Normal Tone, Good Strength Integumentary Skin Exam: Clear, Warm, Dry, Intact Extremeties Extremities Exam: No Edema, Pedal Pulses Palpable Neurologic Neuro Exam: Alert, Awake, Oriented, Speech Clear, Moving All Extremities, Lower 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 CHESK CS PPI 02 IS LASIX HOLD COREG- BP LOW CASE D/W DR RECIO EVALUATE FOR TAVR CASE D/W DR DEMAR MELCHOR MAG/TSH PT EVAL BNP-1200 REPEAT CXR AM WALKING POX HAS APPOINT WITH DR AREVALO 09/20 1:30 AT [facility] ECHO-FAX TO [facility] AM 40 MINUTES (2) Cardiomyopathy (3) Pleural effusion (4) COPD (chronic obstructive pulmonary disease) (5) Systolic CHF (6) Elevated troponin Discussed Condition with: Patient, Medical Consult Problem Qualifiers (1) COPD (chronic obstructive pulmonary disease): Qualified Code: J44.9 - Chronic obstructive pulmonary disease, unspecified COPD type (2) Systolic CHF: Qualified Code: I50.23 - Acute on chronic systolic congestive heart failure Loni Lee DO Sep 06, 2016 12:42
[2016-09-06] MEDS: AZITHROMYCIN 250 MG TAB PO SCH (17:40)
--- NOTE | 2016-09-06 20:55 | HHI.PR ---
Subjective Remarks 71 YOWF with Ca lung and breast,COPD,Pl eff had Left TC done 450 cc fluid removed Breathing better has cough, small amount of sp no fever Objective Vital Signs Vital Signs Date Time Temp Pulse Resp B/P Pulse Ox O2 Delivery O2 Flow Rate FiO2 09/06/16 20:00 97.6 74 18 93/51 94 09/06/16 16:03 98.2 73 16 99/55 96 09/06/16 12:04 97.7 76 16 98/54 97 09/06/16 09:00 66 16 99/60 98 09/06/16 08:45 79 16 113/69 98 09/06/16 08:16 97.0 75 16 96/56 98 09/06/16 08:03 97.7 79 16 91/50 95 09/06/16 08:00 85 09/06/16 04:00 97.0 66 16 96/56 95 09/06/16 00:00 97.8 69 20 90/55 97 I/O 09/05/16 09/05/16 09/05/16 09/06/16 09/06/16 09/06/16 07:00 15:00 23:00 07:00 15:00 23:00 Intake Total 240 ml 480 ml 720 ml Output Total 1000 ml 4400 ml Balance 240 ml 480 ml -1000 ml -4400 ml 720 ml Intake Oral 240 ml 480 ml 720 ml Output Urine Total 1000 ml 4400 ml # Voids 0 3 3 # Bowel Movements 0 1 2 0 Result Diagram: 09/04/16 0746 09/06/16 0710 Objective Remarks GENERAL: Elderly female, mild sob SKIN: Warm and dry. HEAD: Normocephalic. EYES: No scleral icterus. No injection or drainage. NECK: Supple, trachea midline. No JVD or lymphadenopathy. CARDIOVASCULAR: Regular rate and rhythm without murmurs, gallops, or rubs. RESPIRATORY: Breath sounds equal bilaterally. No accessory muscle use. GASTROINTESTINAL: Abdomen soft, non-tender, nondistended. MUSCULOSKELETAL: No cyanosis, or edema. BACK: Nontender without obvious deformity. No CVA tenderness. A/P Assessment and Plan COPD Pl effusion, s/p TC H/O ca lung and Breast PLAN: Aerosol nebs Spiriva once daily cont Abx supplement [address] fluid results Star Coley MD Sep 06, 2016 20:55
[2016-09-07] VITALS: BP 95/53; PULSE 71; RESP 18; TEMP 97.5; O2SAT 98
[2016-09-07 04:00] VITALS: BP 91/54; PULSE 72; RESP 18; TEMP 97.8; O2SAT 96
--- NOTE | 2016-09-07 07:25 | PD.CARD.PN ---
Subjective Subjective Remarks ambulated this morning and resting comfortably in her bed on room air Objective Vital Signs / I&O Vital Signs Date Time Temp Pulse Resp B/P Pulse Ox O2 Delivery O2 Flow Rate FiO2 09/07/16 04:00 97.8 72 18 91/54 96 09/07/16 00:00 97.5 71 18 95/53 98 09/06/16 21:01 95 Nasal Cannula 2.00 09/06/16 20:00 97.6 74 18 93/51 94 09/06/16 16:03 98.2 73 16 99/55 96 09/06/16 12:04 97.7 76 16 98/54 97 09/06/16 09:00 66 16 99/60 98 09/06/16 08:45 79 16 113/69 98 09/06/16 08:16 97.0 75 16 96/56 98 09/06/16 08:03 97.7 79 16 91/50 95 09/06/16 08:00 85 I/O 09/06/16 09/06/16 09/06/16 09/07/16 09/07/16 09/07/16 07:00 15:00 23:00 07:00 15:00 23:00 Intake Total 720 ml 300 ml 100 ml Output Total 4400 ml Balance -4400 ml 720 ml 300 ml 100 ml Intake Oral 720 ml 300 ml 100 ml Output Urine Total 4400 ml # Voids 3 4 2 # Bowel Movements 2 0 1 0 Physical Exam GENERAL: Well-nourished, well-developed patient in no apparent distress. NECK: No JVD. No carotid bruit. CARDIOVASCULAR: Regular rate and rhythm. S1/S2 3/6 SM RESPIRATORY: No accessory muscle use. Clear to auscultation. Breath sounds equal bilaterally. GASTROINTESTINAL: Abdomen soft, non-tender, nondistended. MUSCULOSKELETAL: Extremities without clubbing, cyanosis, or edema. Laboratory Laboratory Tests Test 09/06/16 08:27 Pleural Fluid Total Protein 2.6 GM/DL Pleural Fluid LDH 86 U/L Pleural Fluid Glucose 104 MG/DL Assessment and Plan Problem List: (1) CHF (congestive heart failure) (2) Aortic stenosis (3) Cardiomyopathy Assessment and Plan Aortic stenosis - severe. low gradient due to cardiomyopathy and reduced cardiac output. High risk for traditional AVR. Extensive cardiac workup has already been done including right and left heart catheterization at [facility] Clinically improved now. acute on chronic systolic CHF - continue Lasix 20 mg daily PO. Cr normal. due to hypotension, she will not tolerate titration of medical therapy, ie JEROME or ARB. cont BB as HR and BP allow. lung ca s/p radiation. DC planning. referal already in place for TAVR evaluation at [facility] with Dr. Patton/ Dr. Doll. yas for discharge from a CV standpoint, sign off Vicente Reyna Sep 07, 2016 07:25
[2016-09-07 08:00] VITALS: PULSE 74; PULSE 75
[2016-09-07 08:39] VITALS: BP 128/54; PULSE 82; RESP 18; TEMP 97.2; O2SAT 96
[2016-09-07] MEDS: CARVEDILOL 3.125 MG TAB PO SCH (09:05)
[2016-09-07] MEDS: FUROSEMIDE 20 MG TAB PO SCH (09:05)
[2016-09-07] MEDS: BENZONATATE 100 MG CAP PO SCH (09:05)
[2016-09-07] MEDS: ALBUTEROL SULFATE 90 MCG/ACT HFA 18 GM INHALER INH SCH (09:10)
[2016-09-07] MEDS: TIOTROPIUM BROMIDE 18 MCG INH INH SCH (09:10)
[2016-09-07 09:11] VITALS: O2SAT 95
[2016-09-07 12:06] VITALS: BP 128/58; PULSE 87; RESP 19; TEMP 97.3; O2SAT 96
--- NOTE | 2016-09-07 12:27 | HHI.DCPOC ---
Discharge Care Plan Diagnosis: (1) Systolic CHF (2) CHF (congestive heart failure) (3) Elevated troponin (4) Aortic stenosis (5) Pleural effusion (6) COPD (chronic obstructive pulmonary disease) Your Health Problems Are: Shortness of Breath Goals to Promote Your Health * To prevent worsening of your condition and complications * To maintain your health at the optimal level Directions to Meet Your Goals Take your medications as prescribed Follow your dietary instruction Follow activity as directed Keep your appointments as scheduled Take your immunizations and boosters as scheduled If your symptoms worsen call your PCP, if no PCP go to Urgent Care Center or Emergency Room Smoking is Dangerous to Your Health. Avoid second hand smoke Call the 24-hour hour crisis hotline for domestic abuse at Loni Lee DO Sep 07, 2016 12:27
[2016-09-07] MEDS ORDERED: SPIRCAP INH (12:31)
[2016-09-07] MEDS ORDERED: VENTAER INH ×2 (12:31→12:41)
[2016-09-07] MEDS ORDERED: AZIT250T3 PO (12:31)
[2016-09-07] MEDS ORDERED: CARV3.125 PO (12:31)
[2016-09-07] MEDS ORDERED: OXYGENTANK NAS.CANULA (12:34)
--- NOTE | 2016-09-07 12:38 | HHI.FF ---
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 My clinical findings support the need for the requested home health care services because: Patient has SOB Deconditioned w/ increased weakness Need for psychosocial assistance I certify that my clinical findings support that this patient is homebound because: Hx COPD- exertion dyspnea/weakness Need for psychosocial assistance Poor cardiac reserve Loni Lee DO Sep 07, 2016 12:38
--- NOTE | 2016-09-07 12:55 | HHI.PR ---
Subjective History of Present Illness PT SEEN LESS SOB- S/P THORA. NO CP PALPITATIONS TOOK 02 OFF TO WALK DESATURATED DR BENZ INTO SEE HER CASE D/W MINOR VOIDING WELL BP BETTER Review of Systems Constitutional Constitutional: Fatigue, Weakness Pulmonary Respiratory: Shortness of Breath Cardiology CV: Palpitations GI/Abdomen GI/Abdominal Exam: Positive Bowel Movement Genitourinary Genitourinary: Frequency Musculoskeletal MS: Weakness, Discomfort/Pain Neurologic Neurologic: Dizziness Psychiatric Psychiatric: Normal Mood Endocrine Endocrine: Thirst Vitals/Results Intake & Output 09/06/16 09/06/16 09/07/16 15:00 23:00 07:00 Intake Total 720 ml 300 ml 100 ml Balance 720 ml 300 ml 100 ml Intake Oral 720 ml 300 ml 100 ml # Voids 3 4 2 # Bowel Movements 0 1 0 Vital Signs Vital Signs Date Time Temp Pulse Resp B/P Pulse Ox O2 Delivery O2 Flow Rate FiO2 09/07/16 12:06 97.3 87 19 128/58 96 09/07/16 09:11 95 21 09/07/16 08:39 97.2 82 18 128/54 96 09/07/16 08:00 75 09/07/16 08:00 74 09/07/16 04:00 97.8 72 18 91/54 96 09/07/16 00:00 97.5 71 18 95/53 98 09/06/16 21:01 95 Nasal Cannula 2.00 09/06/16 20:00 97.6 74 18 93/51 94 09/06/16 16:03 98.2 73 16 99/55 96 CBC/BMP: 09/04/16 0746 09/06/16 0710 Physical Exam General General Appearance: Well Developed, No Acute Distress, Malnourished Eyes Eye Exam: Pupils Equal, Pupils Reactive, Sclera White, Extraocular Movement Intact Ears & Nose Ears & Nose Exam: Tympanic Membranes Normal, Auditory Canals Normal, Nasal Mucosa [place], Septum Midline Throat Throat Exam: Oral Mucosa [place] & Moist, Oral Pharynx Normal Neck Neck Exam: Neck Supple, Trachea Midline Pulmonary Resp Exam: Crackles, Decreased Bases, Diminished Breath Sounds Cardiology CV Exam: Regular, Normal Sinus Rhythm, Tachycardia Chest/Breast Chest/Breast Exam: Symmetry Gastrointestinal/Abdomen GI Exam: Soft, Non-Tender, Bowel Sounds Present, Positive Bowel Movement, Peristalsis, No Hepatosplenomegaly, Non-Distended Musculoskeletal MS Exam: Joints Intact, Normal Gait, Normal Tone, Good Strength Integumentary Skin Exam: Clear, Warm, Dry, Intact Extremeties Extremities Exam: No Edema, Pedal Pulses Palpable Neurologic Neuro Exam: Alert, Awake, Oriented, Speech Clear, Moving All Extremities, Customs Manager Equal, No Focal Deficits Psychiatric Psych Exam: Appropriate Responses VTE Prophylaxis VTE Prophylaxis Device: SCDs PUD Prophylasis PUD Prophylaxis: Protonix Assessment/Plan Problem List: (1) CHF (congestive heart failure) Plan: PLAN; S/P THORAC. CHECK CS PPI 02 IS LASIX HOLD COREG- BP LOW CASE D/W DR RECIO EVALUATE FOR TAVR CASE D/W DR DEMAR MELCHOR MAG/TSH PT EVAL BNP-1200 REPEAT CXR AM WALKING POX TODAY HAS APPOINT WITH DR AREVALO 09/20 1:30 AT [facility] ECHO[facility]FAX TO [facility] 40 MINUTES (2) Cardiomyopathy (3) Pleural effusion (4) COPD (chronic obstructive pulmonary disease) (5) Systolic CHF (6) Elevated troponin Discussed Condition with: Medical Consult, Lead Assembler Problem Qualifiers (1) COPD (chronic obstructive pulmonary disease): Qualified Code: J44.9 - Chronic obstructive pulmonary disease, unspecified COPD type (2) Systolic CHF: Qualified Code: I50.23 - Acute on chronic systolic congestive heart failure Loni Lee DO Sep 07, 2016 12:55
--- NOTE | 2016-09-07 15:01 | HHI.DS ---
Discharge Summary Admission Date Sep 02, 2016 at 13:57 Discharge Date: Sep 07, 2016 Admitting Diagnosis CHF exacerbation, left pleural effusion, elevated troponin (1) S/P thoracentesis (2) Hypoxia (3) Aortic stenosis (4) Systolic CHF (5) COPD (chronic obstructive pulmonary disease) Procedures thoracentesis Brief History PT ADMITTED FROM ER WITH HYPOXIA.SEEN BY DR RECIO AND DR BENZ.SET UP FOR DR AREVALO FOR TVR EVAL.THORACENTESIS DONE.ON PO ABX.CULTURES DONE. CLEARED FOR DC TODAY BY DR RECIO CBC/BMP: 09/04/16 0746 09/06/16 0710 Significant Findings Laboratory Tests Test 09/05/16 09/06/16 18:15 07:10 Blood Urea Nitrogen 24 MG/DL (7-18) 22 MG/DL (7-18) Creatinine 1.07 MG/DL (0.50-1.00) Estimat Glomerular Filtration 51 ML/MIN (>89) 66 ML/MIN (>89) Rate Random Glucose 113 MG/DL (74-106) Aspartate Amino Transf 13 U/L (15-37) (AST/SGOT) Albumin 3.0 GM/DL (3.4-5.0) Hospital Course C ABOVE Pt Condition on Discharge: Good Discharge Disposition: Disch w/ Home Health Serv Discharge Instructions DIET: Follow Instructions for: Heart Healthy Diet Speech Therapy-Diet Recommends: Regular Additional Diet Instructions: fluid restriction 1500cc/day Activities you can perform: Regular-No Restrictions Follow up Referrals: Cardiology Pulmonology SNF/CARE HOME/ with [facility] Loni Lee DO Sep 07, 2016 15:01
== END 2016-09-07 14:38 | disposition home health service (06) | DRG 292 ==
LOC: NEPE 10:49 → NEDA 13:57 → N04B 15:47
PROVIDERS: ADMIT Family Medicine; ATTEND Family Medicine
PROC: 0W9B3ZX Drainage of Left Pleural Cavity, Percutaneous Approach, Diagnostic (ICD-10-PCS; principal; 2016-09-06)
DX: I50.23 Acute on chronic systolic (congestive) heart failure (principal); J90 Pleural effusion, not elsewhere classified; I42.9 Cardiomyopathy, unspecified; J44.9 Chronic obstructive pulmonary disease, unspecified; I35.0 Nonrheumatic aortic (valve) stenosis; R09.02 Hypoxemia; Z85.3 Personal history of malignant neoplasm of breast; F17.210 Nicotine dependence, cigarettes, uncomplicated; Z92.21 Personal history of antineoplastic chemotherapy; Z92.3 Personal history of irradiation; Z85.118 Personal history of other malignant neoplasm of bronchus and lung; Z88.5 Allergy status to narcotic agent
CPT/HCPCS: 32555; 71010; 71020; 71275; 80048; 80053; 82550; 82552; 82945; 82948; 83615; 83690; 83735; 83880; 84157; 84443; 84484; 85025; 85379; 85610; 85730; 86738; 87070; 87205; 88112; 88305; 93005; 93306; 94150; 94620; 94664; 96374; 96375; C1729; J1940; J2930; Q9967

== ENCOUNTER → 2017-01-01 | Outpatient (CLI) | payer MEDICARE ==
[~2017-01-01] MED LIST changes: -ALBU25IPRN INH; -ALBU8I INH; +AZIT250T3 PO; +BENZ100 PO; +FURO1TAB62 PO; -FURO20 PO; +OXYGENTANK NAS.CANULA; +VENTAER INH
[2017-01-01 08:40] LABS: AUTOMATED NEUTROPHIL # 3.5 TH/MM3 (1.8-7.7); BASOPHIL # 0.1 TH/MM3 (0-0.2); BASOPHIL % 1.3 % (0.0-2.0); EOSINOPHIL # 0.2 TH/MM3 (0-0.4); EOSINOPHIL % 3.5 % (0.0-4.0); HEMO FLAGS DIFF FINAL; LYMPH % 21.8 % (9.0-44.0); LYMPHOCYTE # 1.2 TH/MM3 (1.0-4.8); MEAN CELL VOLUME 95.2 FL (80.0-100.0); MEAN CORPUSCULAR HEMOGLOBIN 31.6 PG (27.0-34.0); MEAN CORPUSCULAR HGB CONC 33.2 % (32.0-36.0); MONO % 9.6 % (0.0-8.0); NEUT % 63.8 % (16.0-70.0); PLATELET COUNT 213 TH/MM3 (150-450); RED CELL DISTRIBUTION WIDTH 14.1 % (11.6-17.2); WHITE BLOOD COUNT 5.5 TH/MM3 (4.0-11.0)
[2017-01-01 09:15] LABS: ANION GAP 9 MEQ/L (5-15); AST (GOT) 27 U/L (15-37); BICARBONATE 26.9 MEQ/L (21.0-32.0); BLOOD UREA NITROGEN 16 MG/DL (7-18); CHLORIDE 103 MEQ/L (98-107); GLOMERULAR FILTRATION RATE 57 ML/MIN (>89); GLUCOSE,FASTING 88 MG/DL (74-99); SODIUM (NA) 139 MEQ/L (136-145)
[2017-01-01 09:24] LABS: ALKALINE PHOSPHATASE 69 U/L (45-117); ALT (GPT) 25 U/L (10-53); FREE T4 0.85 NG/DL (0.76-1.46); HDL CHOLESTEROL 45.8 MG/DL (40.0-60.0); LDL CHOLESTEROL 105 MG/DL (0-99); TOTAL BILIRUBIN ADULT 0.7 MG/DL (0.2-1.0)
== END ==
LOC: CLAB 08:13
PROVIDERS: ATTEND Family Medicine
DX: I10 Essential (primary) hypertension (principal); J44.0 Chronic obstructive pulmonary disease with (acute) lower respiratory infection; E05.80 Other thyrotoxicosis without thyrotoxic crisis or storm; Z79.899 Other long term (current) drug therapy
CPT/HCPCS: 36415; 80053; 80061; 84439; 84443; 85025

== ENCOUNTER 2017-05-30 08:21 | Day surgery (SDC) | payer MEDICARE ==
[~2017-05-30] VITALS: Ht 165.1 cm; Wt 49.1 kg
[2017-05-30 08:53] VITALS: BP 128/83; PULSE 100; RESP 20; O2SAT 97
[2017-05-30] MEDS ORDERED: ASPI-516 CHEW (08:53)
[2017-05-30] MEDS ORDERED: CLOP75TA PO (08:53)
[2017-05-30] MEDS ORDERED: OMEP20TA93 PO (08:53)
[2017-05-30] MEDS ORDERED: D 50CAP2 PO (08:53)
[2017-05-30] MEDS ORDERED: CARV3.12 PO (08:53)
[2017-05-30] MEDS ORDERED: ALBU.5I NEB (08:53)
[2017-05-30 09:15] LABS: AUTOMATED NEUTROPHIL # 5.5 TH/MM3 (1.8-7.7); BASOPHIL # 0.1 TH/MM3 (0-0.2); BASOPHIL % 0.9 % (0.0-2.0); EOSINOPHIL # 0.1 TH/MM3 (0-0.4); EOSINOPHIL % 1.4 % (0.0-4.0); HEMATOCRIT 42.8 % (35.0-46.0); HEMOGLOBIN 14.4 GM/DL (11.6-15.3); LYMPH % 12.1 % (9.0-44.0); LYMPHOCYTE # 0.9 TH/MM3 (1.0-4.8); MEAN CELL VOLUME 94.8 FL (80.0-100.0); MEAN CORPUSCULAR HEMOGLOBIN 31.8 PG (27.0-34.0); MEAN CORPUSCULAR HGB CONC 33.6 % (32.0-36.0); MEAN PLATELET VOLUME 9.1 FL (7.0-11.0); MONO % 9.5 % (0.0-8.0); MONOCYTE # 0.7 TH/MM3 (0-0.9); NEUT % 76.1 % (16.0-70.0); PLATELET COUNT 241 TH/MM3 (150-450); RED BLOOD COUNT 4.51 MIL/MM3 (4.00-5.30); RED CELL DISTRIBUTION WIDTH 13.9 % (11.6-17.2); WHITE BLOOD COUNT 7.2 TH/MM3 (4.0-11.0)
[2017-05-30 09:30] LABS: INTERNATIONAL NORMALIZED RATIO 1.1 RATIO; PROTHROMBIN TIME - PATIENT 11.1 SEC (9.8-11.6)
[2017-05-30 09:42] LABS: TOTAL PROTEIN 7.5 GM/DL (6.4-8.2)
--- NOTE | 2017-05-30 11:47 | RADRPT ---
EXAM DATE/TIME: 05/30/2017 10:24 [facility] COMPARISON: No previous studies available for comparison. EXTERNAL COMPARISON : [facility], CT CHEST W/O CONTRAST, May 10, 2017 INDICATIONS : Left pleural effusion. MEDICAL HISTORY : Carcinoma, breast. Carcinoma, lung. Congestive heart failure. Heart murmur. Dyspnea. Arthritis. COPD. HTN. SURGICAL HISTORY : Axillary lymph node disection. Lumpectomy. Thoracentesis. Left leg and ankle surgery. Chemotherapy. R adiation therapy. ENCOUNTER: Subsequent ACUITY: 1 day PAIN SCORE: 0/10 LOCATION: Left chest MEASUREMENTS: SKIN TO PARIETAL PLEURA: 1.1 cm SKIN TO MAX SAFE DEPTH: 4.4 cm ESTIMATED FLUID VOLUME: 916 cc FLUID COMPOSITION: complex FINDINGS: Pleural effusion as above. A asha was placed on the skin surface superficial to the pleural fluid col lection. CONCLUSION: Large left pleural effusion marked for thoracentesis as above Tomasz Vaughan MD on May 30, 2017 at 11:44 Board Certified Radiologist. This report was verified electronically.
[2017-05-30] MEDS ORDERED: HEPARIN SODIUM - IV 10,000 UNITS/10 ML VIAL ONE (14:08)
[2017-05-30 14:20] VITALS: BP 107/67; PULSE 82; RESP 20; O2SAT 94
[2017-05-30 14:35] VITALS: BP 100/51; PULSE 67; RESP 20; O2SAT 94
[2017-05-30 14:50] VITALS: BP 95/53; PULSE 79; RESP 20
--- NOTE | 2017-05-30 14:53 | MR ---
cc: BRIDGETTE BONILLA M.D., GERALD R. D.O. ANEJA, ARJUN DATE: 05/30/2017 PROCEDURE PERFORMED Left thoracentesis. PREOPERATIVE DIAGNOSIS Left pleural effusion. PROCEDURE Informed consent was obtained from the patient. The procedure and the complications including complication of anesthesia, pneumothorax requiring chest tube, bleeding complication, injury to blood vessels, lungs and nerves, arrhythmia and hypoxia were explained and she consented for the procedure. Left side of the chest was marked with ultrasound and cleansed with Betadine. 1% lidocaine infiltration anesthesia was used. With a 16 gauge Angiocath thoracentesis was done and yellow fluid was obtained , about 800 ccs of fluid was removed. Fluid stopped coming and procedure was terminated. She tolerated the procedure well. Pleural fluid is sent for protein, glucose, LDH, pH, cell count and differential, routine culture, AFB fungal culture and cytology. Postprocedure chest x-ray was ordered to rule out pneumothorax. MD ROGER Duffy/KRISTI /2:07 PM /2:13 PM CAROLINE
--- NOTE | 2017-05-30 15:30 | RADRPT ---
EXAM DATE/TIME: 05/30/2017 14:41 [facility] COMPARISON: CHEST PA & LAT, September 06, 2016, 6:07. CHEST SINGLE AP, September 02, 2016, 11:34. INDICATIONS : Status post thoracentesis. MEDICAL HISTORY : Carcinoma, breast. Carcinoma, lung. Congestive heart failure. SURGICAL HISTORY : None. ENCOUNTER: Initial ACUITY: 1 day PAIN SCORE: 0/10 LOCATION: chest FINDINGS: A single AP semierect view of the chest was obtained and again demonstrates a small to moderate left effusion without significant change. There is stable scarring in the left midlung. Right lung is jannette r except for mild scarring. There has been interval placement of a metallic stent projected over the heart. Heart size at the upper limits of normal. Tracheal calcifications are noted. The bony thorax i s intact. CONCLUSION: 1. Stable appearance of the small to moderate left effusion with stable scarring in the left lung. Th ere is no pneumothorax. 2. Interval placement of metallic stent projects over the heart. Channing Sanches MD on May 30, 2017 at 15:27 Board Certified Radiologist. This report was verified electronically.
[2017-05-30 16:08] LABS: PLEURAL FLUID HISTIOCYTES 1 %; PLEURAL FLUID LYMPHS 88 %; PLEURAL FLUID MESOTHELIAL 1 %; PLEURAL FLUID MONOS 3 %; PLEURAL FLUID POLYS (SEGS) 7 %
[2017-05-30 16:10] LABS: PLEURAL FLUID RBC 861 /MM3 (0-0); PLEURAL FLUID WBC 651 /MM3 (0-10)
--- NOTE | 2017-05-31 10:51 | MH ---
cc: ANNIE BENZ GERALD R. D.O. DATE OF ADMISSION: 05/30/2017 CHIEF COMPLAINT Patient will come for a left thoracentesis. HISTORY OF PRESENT ILLNESS Mrs. Lugo is a 72-year-old female with lung nodule and COPD. She has history of CA of the lung status post SBRT. She also has severe aortic stenosis. She had a TAVR and she has mild shortness of breath on exertion. No fever, chills or night sweats. She had a CT scan of the chest done which shows large left pleural effusion, stable nodule in the right lung. PAST MEDICAL HISTORY 1. History of COPD. 2. CA of the lung status post radiation treatment, lung nodules stable. 3. Aortic stenosis status post TAVR. MEDICATION 1. She is taking nebulizer treatments - Spiriva once a day. 2. ProAir inhaler. 3. Coreg 3.125 mg a day. 4. Plavix 75 mg. 5. Aspirin 81 mg. 6. Lasix 20 mg a day. ALLERGIES OXYCODONE. MORPHINE SULFATE. SOCIAL HISTORY, FAMILY HISTORY Unchanged. REVIEW OF SYSTEMS She denies any weight loss. No chest pain. No nausea or vomiting. PHYSICAL EXAMINATION GENERAL: An elderly female not in acute distress. VITAL SIGNS: Blood pressure 120/66, heart rate 104, respirations 16, weight 113, oxygen saturation 97%. HEENT EXAMINATION: Pupils are equal and reactive. Oral mucosa, nasal mucosa normal. NECK: Supple. JVP not raised. CHEST: Clear to percussion. Decreased breath sounds at the left base. CV: S1-S2 normal. She has a systolic murmur. ABDOMEN: Benign. EXTREMITIES: No edema. IMPRESSION Moderate-sized left pleural effusion. COPD. CA of the lung status post radiation treatment. Lung nodule. Aortic stenosis status post TAVR. PLAN I discussed with the patient that she will need thoracentesis. I explained to her the procedure and the complications including complication of anesthesia, pneumothorax requiring chest tube, bleeding, complication, injury to the blood vessels, lungs, nerves, arrhythmia, hypoxia. She understands and wants to proceed with it. She will have to hold her Plavix for 5 days. I discussed with Dr. Patton who thinks it is okay to hold her Plavix for 5 days. She will be scheduled for thoracentesis at [facility]. MD LYDIA Duffy /11:08 PM /10:23 AM
[2017-05-31 14:22] LABS: AMYLASE BODY FLUID 39 U/L; AMYLASE BODY FLUID TYPE PLEURAL
== END 2017-05-30 15:47 | disposition home or self-care (01) ==
LOC: HROP 08:21 → HRIP 08:22 → HROP 15:47
PROVIDERS: ATTEND Specialist
DX: J90 Pleural effusion, not elsewhere classified (principal); C34.90 Malignant neoplasm of unspecified part of unspecified bronchus or lung; I11.0 Hypertensive heart disease with heart failure; J44.9 Chronic obstructive pulmonary disease, unspecified; I35.0 Nonrheumatic aortic (valve) stenosis; I50.9 Heart failure, unspecified; R01.1 Cardiac murmur, unspecified; R06.02 Shortness of breath; Z92.3 Personal history of irradiation; Z95.2 Presence of prosthetic heart valve
CPT/HCPCS: 32554; 71010; 76604; 82150; 82945; 82947; 83615; 83986; 84155; 85025; 85610; 85730; 87015; 87070; 87102; 87116; 87205; 87206; 88112; 88305; 89051; J1644

== ENCOUNTER 2017-08-13 07:31 | Day surgery (SDC) | payer MEDICARE ==
[~2017-08-13 07:31] MED LIST changes: +ALBU.5I NEB; +ASPI-516 CHEW; -AZIT250T3 PO; +CARV3.12 PO; -CARV3.125 PO; +CLOP75TA PO; +D 50CAP2 PO; +OMEP20TA93 PO; -OXYGENTANK NAS.CANULA
[2017-08-13 08:08] LABS: INTERNATIONAL NORMALIZED RATIO 1.1 RATIO; PROTHROMBIN TIME - PATIENT 10.7 SEC (9.8-11.6)
[2017-08-13 09:35] VITALS: BP 90/53; PULSE 46; RESP 18; TEMP 97.8; O2SAT 96
[2017-08-13 09:36] VITALS: BP 90/53; PULSE 82; RESP 17; TEMP 97.8; O2SAT 96
--- NOTE | 2017-08-13 09:41 | RADRPT ---
EXAM DATE/TIME: 08/13/2017 09:17 [facility] COMPARISON: CHEST EXPIRATION ONLY, September 06, 2016, 8:42. INDICATIONS : Post left side thoracentesis MEDICAL HISTORY : Chronic obstructive pulmonary disease. Emphysema. left side breast cancer 2002 SURGICAL HISTORY : lumpectomy ENCOUNTER: Initial ACUITY: 1 day PAIN SCORE: 0/10 LOCATION: Bilateral chest FINDINGS: There is no pneumothorax status post left thoracentesis. Cardiac valve stent is noted. The heart is m ildly enlarged. Scattered emphysematous changes are noted. No focal infiltrate is noted. No evidence of pulmonary vascular congestion. CONCLUSION: 1. No pneumothorax status post left thoracentesis. No significant residual pleural effusion noted. 2. Cardiomegaly. 3. Emphysematous changes. 4. No acute focal pulmonary infiltrate or pulmonary vascular congestion. Emory Espinoza MD on August 13, 2017 at 9:37 Board Certified Radiologist. This report was verified electronically.
[2017-08-13 09:51] VITALS: BP 98/54; PULSE 84; RESP 18; O2SAT 94
[2017-08-13] MEDS ORDERED: LIDOCAINE HCL 1% 20 ML VIAL ONE (11:04)
[2017-08-13 11:13] LABS: PLEURAL FLUID LYMPHS 82 %; PLEURAL FLUID MONOS 9 %; PLEURAL FLUID POLYS (SEGS) 9 %; PLEURAL FLUID RBC 297 /MM3 (0-0); PLEURAL FLUID WBC 174 /MM3 (0-10)
--- NOTE | 2017-08-13 14:25 | RADRPT ---
EXAM DATE/TIME: 08/13/2017 08:38 [facility] COMPARISON: US GUIDED THORACENTESIS LEFT, September 06, 2016, 8:04. INDICATIONS : Left pleural effusion. MEDICAL HISTORY : Chronic obstructive pulmonary disease. Congestive heart failure. Arthritis. Dyspnea. Left breast can er. SURGICAL HISTORY : Left leg and ankle repair. ENCOUNTER: Subsequent ACUITY: 1 month PAIN SCORE: 3/10 LOCATION: Left chest FLUID: Total volume of 1000 cc of clear, red fluid was removed. Fluid was sent to lab for ordered studies. TECHNIQUE: 1. Ultrasound guidance for thoracentesis. 2. Thoracentesis. The risks, benefits, and alternatives to ultrasound guided thoracentesis were explained to the patien t in lay simple terms, including the risk of bleeding and infection. Written and verbal informed con sent was obtained. Appropriate area for thoracentesis was marked under ultrasound guidance with the patient in the uprig ht position. Overlying skin was prepped and draped in the usual sterile fashion and with local anest hetic, a dermatotomy was made with an 11 blade scalpel. A 6 [place] thoracentesis catheter was placed in the pleural space and fluid was removed. Catheter was then removed and a sterile dressing applie d. There were no immediate complications. The patient tolerated the procedure well and the left the ultrasound suite in stable condition. Chest radiograph is to be obtained. CONCLUSION: Uncomplicated ultrasound guided thoracentesis. Emory Espinoza MD on August 13, 2017 at 14:23 Board Certified Radiologist. This report was verified electronically.
== END 2017-08-13 10:47 | disposition home or self-care (01) ==
LOC: HRAD 07:31 → HRIP 07:43 → HRAD 10:47
PROVIDERS: ATTEND Internal Medicine Hematology
DX: J90 Pleural effusion, not elsewhere classified (principal); I50.9 Heart failure, unspecified; M19.90 Unspecified osteoarthritis, unspecified site; R06.00 Dyspnea, unspecified; Z85.3 Personal history of malignant neoplasm of breast; J43.9 Emphysema, unspecified
CPT/HCPCS: 32555; 36415; 71045; 84157; 85610; 88112; 88305; 89051; C1729

== ENCOUNTER 2017-09-19 08:08 | Emergency (ER) | payer MEDICARE ==
[~2017-09-19] VITALS: Ht 165.1 cm; Wt 50.0 kg
[2017-09-19 08:12] VITALS: BP 123/74; PULSE 123; RESP 24; TEMP 97.6; O2SAT 97
[2017-09-19 08:45] LABS: AUTOMATED NEUTROPHIL # 7.2 TH/MM3 (1.8-7.7); BASOPHIL # 0.1 TH/MM3 (0-0.2); BASOPHIL % 0.7 % (0.0-2.0); EOSINOPHIL # 0.2 TH/MM3 (0-0.4); EOSINOPHIL % 1.7 % (0.0-4.0); HEMATOCRIT 47.4 % (35.0-46.0); HEMOGLOBIN 16.1 GM/DL (11.6-15.3); LYMPH % 10.8 % (9.0-44.0); MEAN CELL VOLUME 94.8 FL (80.0-100.0); MEAN CORPUSCULAR HEMOGLOBIN 32.2 PG (27.0-34.0); MEAN CORPUSCULAR HGB CONC 33.9 % (32.0-36.0); MEAN PLATELET VOLUME 8.9 FL (7.0-11.0); MONO % 7.6 % (0.0-8.0); MONOCYTE # 0.7 TH/MM3 (0-0.9); NEUT % 79.2 % (16.0-70.0); PLATELET COUNT 272 TH/MM3 (150-450); RED CELL DISTRIBUTION WIDTH 15.1 % (11.6-17.2)
[2017-09-19 08:49] LABS: INTERNATIONAL NORMALIZED RATIO 1.1 RATIO; PROTHROMBIN TIME - PATIENT 11.1 SEC (9.8-11.6)
[2017-09-19 09:03] VITALS: BP 122/69; PULSE 106; RESP 22; O2SAT 98
[2017-09-19 09:06] LABS: BICARBONATE 27.1 MEQ/L (21.0-32.0); CALCIUM 9.5 MG/DL (8.5-10.1); CREATININE 0.93 MG/DL (0.50-1.00); TROPONIN I 0.04 NG/ML (0.02-0.05)
--- NOTE | 2017-09-19 09:56 | RADRPT ---
EXAM DATE/TIME: 09/19/2017 09:29 [facility] COMPARISON: CHEST PA & LAT, September 06, 2016, 6:07. INDICATIONS : Short of breath and patient states she feels rapid heart rate. MEDICAL HISTORY : Chronic obstructive pulmonary disease. Carcinoma, breast. Carcinoma, lung. Congestive heart isidoro lure. SURGICAL HISTORY : Aortic valve replacement, Lumpectomy. ENCOUNTER: Initial ACUITY: 2 weeks PAIN SCORE: 0/10 LOCATION: Bilateral chest FINDINGS: Moderate hyperinflation is present with coarse interstitial changes through both lungs. Increasing l eft pleural effusion. Previous aortic valve replacement for comparison. CONCLUSION: Increasing left pleural effusion. Previous TAVR Benson Condon MD FACR on September 19, 2017 at 9:53 Board Certified Radiologist. This report was verified electronically.
[2017-09-19 11:47] VITALS: BP 122/71; PULSE 105; RESP 26; O2SAT 96
--- NOTE | 2017-09-19 11:56 | PD ---
HPI Chief Complaint: Chest Pain Time Seen by Provider: 09:06 Travel History International Travel<30 days: No Contact w/Intl Traveler<30days: No Traveled to known affect area: No History of Present Illness HPI 72-year-old woman presents to the emergency department complaining of increasing shortness of breath for the past 2-3 weeks. A little bit of chest pain. States is worse when she lays down flat. She has had some cough with some chills with it. She is a history of similar problems in the past. She had a history of recurrent pleural effusions, last drained in August. She also has CHF with an EF of 20-25%, as well as severe aortic stenosis at persist despite Jimmy. She has had cancer of the lungs are treated radiation, last dose was in 2015. Perfusions of all been negative for malignant cells by report. History Past Medical History Narrative Medical COPD History of lung CA, status post radiation treatment, last February 2016 Severe aortic stenosis, status post Jimmy Pleural effusion, recurrent History of CHF, EF 20-25% : 3 Para: 2 Social History Alcohol Use: No Tobacco Use: Yes (1/2 PPD) Allergies-Medications (Allergen,Severity, Reaction): Coded Allergies: oxycodone (Unverified Allergy, Severe, VOMITING, 09/19/17) morphine (Unverified Adverse Reaction, Unknown, nausea and vomiting, ) Reported Meds & Prescriptions Reported Meds & Active Scripts Active Ventolin Hfa 18 GM Inh (Albuterol Sulfate) 90 Mcg/Act Aer 2 Puff INH TID Spiriva Handihaler (Tiotropium Inh) 18 Mcg Cap 18 Mcg INH DAILY Reported Albuterol Neb (Albuterol Sulfate) 2.5 Mg/0.5 Ml Neb 2.5 Mg NEB Q6HR NEB PRN Note: The Albuterol Sulfate Inhalation Solution is concentrated and must be diluted. Read complete instructions carefully before using. D3 Maximum Strength (Cholecalciferol) 5,000 Unit Cap 5,000 Units PO DAILY Carvedilol 3.125 Mg Tab 3.125 Mg PO BID Omeprazole 20 Mg Tab 20 Mg PO DAILY Clopidogrel (Clopidogrel Bisulfate) 75 Mg Tab 75 Mg PO DAILY Aspirin 81 Mg Chew 81 Mg CHEW DAILY Tessalon Perles (Benzonatate) 100 Mg Cap 100 Mg PO DAILY Lasix (Furosemide) 20 Mg Tab 20 Mg PO DAILY Review of Systems Except as stated in HPI: all other systems reviewed are Neg Physical Exam Narrative GENERAL: 72-year-old woman, frail, mild shortness of breath. SKIN: Focused skin assessment warm/dry. HEAD: Atraumatic. Normocephalic. EYES: Pupils equal and round. No scleral icterus. No injection or drainage. ENT: No nasal bleeding or discharge. Mucous membranes pink and moist. NECK: Trachea midline. No JVD. CARDIOVASCULAR: Regular rate and rhythm. No murmur appreciated. RESPIRATORY: No accessory muscle use. Clear to auscultation. Breath sounds equal bilaterally. GASTROINTESTINAL: Abdomen soft, non-tender, nondistended. Hepatic and splenic margins not palpable. MUSCULOSKELETAL: No obvious deformities. No edema. NEUROLOGICAL: Awake and alert. No obvious cranial nerve deficits. Motor grossly within normal limits. Normal speech. Data Data Last Documented VS Vital Signs Date Time Temp Pulse Resp B/P (MAP) Pulse Ox O2 Delivery O2 Flow Rate FiO2 09/19/17 09:03 104 24 97 Room Air 09/19/17 09:03 122/69 (86) 09/19/17 08:12 97.6 Orders Orders Electrocardiogram (09/19/17 08:18) Complete Blood Count With Diff (09/19/17 08:18) Basic Metabolic Panel (Bmp) (09/19/17 08:18) Ckmb (Isoenzyme) Profile (09/19/17 08:18) Troponin I (09/19/17 08:18) Prothrombin Time / Inr (Pt) (09/19/17 08:18) Chest, Pa & Lat (09/19/17 ) B-Type Natriuretic Peptide (09/19/17 09:18) Us Guided Thoracentesis (09/19/17 ) Chest, Single Ap (09/19/17 ) Cytology Request For Service (09/19/17 11:38) Labs Laboratory Tests Test 09/19/17 08:29 White Blood Count 9.0 TH/MM3 Red Blood Count 5.00 MIL/MM3 Hemoglobin 16.1 GM/DL Hematocrit 47.4 % Mean Corpuscular Volume 94.8 FL Mean Corpuscular Hemoglobin 32.2 PG Mean Corpuscular Hemoglobin Concent 33.9 % Red Cell Distribution Width 15.1 % Platelet Count 272 TH/MM3 Mean Platelet Volume 8.9 FL Neutrophils (%) (Auto) 79.2 % Lymphocytes (%) (Auto) 10.8 % Monocytes (%) (Auto) 7.6 % Eosinophils (%) (Auto) 1.7 % Basophils (%) (Auto) 0.7 % Neutrophils # (Auto) 7.2 TH/MM3 Lymphocytes # (Auto) 1.0 TH/MM3 Monocytes # (Auto) 0.7 TH/MM3 Eosinophils # (Auto) 0.2 TH/MM3 Basophils # (Auto) 0.1 TH/MM3 CBC Comment DIFF FINAL Differential Comment Prothrombin Time 11.1 SEC Prothromb Time International Ratio 1.1 RATIO Blood Urea Nitrogen 16 MG/DL Creatinine 0.93 MG/DL Random Glucose 115 MG/DL Calcium Level 9.5 MG/DL Sodium Level 133 MEQ/L Potassium Level 4.0 MEQ/L Chloride Level 98 MEQ/L Carbon Dioxide Level 27.1 MEQ/L Anion Gap 8 MEQ/L Estimat Glomerular Filtration Rate 59 ML/MIN Total Creatine Kinase 85 U/L Troponin I 0.04 NG/ML B-Type Natriuretic Peptide 2086 PG/ML [facility] Medical Decision Making Medical Screen Exam Complete: Yes Emergency Medical Condition: Yes Interpretation(s) LABS: CBC is remarkable for mildly elevated H&H. CMP is unremarkable BNP 2086 Coags unremarkable Chest x-ray: Increasing left pleural effusion. Previous Tavr. Differential Diagnosis Pleural effusion, CHF exacerbation, other Narrative Course Medical decision making 72-year-old woman, presents to the ED with worsening shortness of breath and orthopnea, likely related to her CHF, pleural effusions, and aortic stenosis. Chest x-ray shows worsening effusion. Spoke with radiology, will need to be off her Plavix for 5 days. Pulse ox is okay. Will recommend double Lasix for 3 days, hold Plavix, follow-up with IR for thoracentesis. Diagnosis Primary Impression: Pleural effusion Patient Instructions: General Instructions Additional Instructions: Continue to weigh yourself daily. Continue to double your Lasix for the next 3 days. Hold your Plavix in anticipation of getting fluid drained from the lung. See her primary doctor in the next 1-2 days for repeat evaluation. Med/Other Pt SpecificInfo: No Change to Meds Disposition: 01 DISCHARGE HOME Condition: Stable Ari Adam MD Sep 19, 2017 11:56
--- NOTE | 2017-09-19 12:08 | EKG ---
Date Performed: 09/19/2017 Time Performed: 08:35:16 PTAGE: 72 years EKG: Sinus rhythm WITH OCCASIONAL SUPRAVENTRICULAR PREMATURE COMPLEXES POSSIBLE LEFT ATRIAL ENLARGEMENT ST DEVIATION A ND MODERATE T-WAVE ABNORMALITY ABNORMAL ECG PREVIOUS TRACING : 09/19/2017 08.34 Since the previous tracing, no significant change noted DOCTOR: Arlin Salazar Interpretating Date/Time 09/19/2017 12:06:19
[2017-09-19 12:46] VITALS: BP 117/62
== END 2017-09-19 12:47 | disposition home or self-care (01) ==
LOC: NEPE 08:08
DX: I50.9 Heart failure, unspecified (principal); F17.200 Nicotine dependence, unspecified, uncomplicated
CPT/HCPCS: 71046; 80048; 82550; 83880; 84484; 85025; 85610; 93005

== ENCOUNTER 2017-09-24 07:47 | Day surgery (SDC) | payer MEDICARE ==
[2017-09-24 08:26] LABS: HEMATOCRIT 41.4 % (35.0-46.0); HEMOGLOBIN 13.6 GM/DL (11.6-15.3); MEAN CELL VOLUME 96.1 FL (80.0-100.0); MEAN CORPUSCULAR HEMOGLOBIN 31.7 PG (27.0-34.0); MEAN PLATELET VOLUME 8.9 FL (7.0-11.0); PLATELET COUNT 270 TH/MM3 (150-450); RED BLOOD COUNT 4.31 MIL/MM3 (4.00-5.30); RED CELL DISTRIBUTION WIDTH 15.3 % (11.6-17.2); WHITE BLOOD COUNT 7.2 TH/MM3 (4.0-11.0)
--- NOTE | 2017-09-24 08:33 | MH ---
cc: [facility] DATE OF ADMISSION: 09/24/2017 CHIEF COMPLAINT: The patient will for ultrasound-guided left thoracentesis on 09/24/2017. HISTORY OF PRESENT ILLNESS: Ms. Lugo is a 72-year-old female with history of CA of the lung, status post SBRT. The patient also has history of pleural effusion with thoracentesis done; has history of atrial fibrillation, status post TAVR. The patient was recently seen in the emergency room and she is scheduled for thoracentesis because of the left pleural effusion. She has mild shortness of breath on exertion. No fever or chills. No night sweats. Her Plavix is on hold because of the procedure. PAST MEDICAL HISTORY: Significant for history of COPD; atrial fibrillation, status post TAVR; CA of the lung, status post SBRT; history of lung nodule. MEDICATIONS: She is taking DuoNeb nebulizer treatment, coreg 3.125 mg a day, aspirin 81 mg, Lasix 20 mg and Plavix is on hold. ALLERGIES: SHE IS ALLERGIC TO MORPHINE SULFATE. SOCIAL HISTORY: She has history of smoking in the past. No alcohol use. 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 FAMILY HISTORY: Unremarkable. REVIEW OF SYSTEMS: Denies any weight loss. No fever, chills or night sweats. PHYSICAL EXAMINATION: GENERAL: Thin built female, not in acute distress. VITAL SIGNS: Blood pressure 120/64, heart rate 70, respirations 16, oxygen saturation 98%. HEENT: Unremarkable. NECK: Supple. JVD noted. CHEST: Decreased breath sounds at the left base with dull percussion note. CARDIOVASCULAR: S1, S2 normal. ABDOMEN: Benign. EXTREMITIES: No edema. IMPRESSION: 1. Left pleural effusion, increasing in size. 2. Congestive heart failure. 3. History of carcinoma of the lung, status post SBRT. 4. Atrial fibrillation, status post TAVR. PLAN: The patient is scheduled for therapeutic thoracentesis at [facility] on 09/24/2017. Her Plavix is on hold. She will continue taking nebulizer treatment, Coreg, aspirin and Lasix and she will resume her Plavix after the procedure. Follow up in 6 weeks. MD ROGER Duffy/KD , 07:23 AM , 07:48 AM MTDMelisa
[2017-09-24 08:35] LABS: INTERNATIONAL NORMALIZED RATIO 1.1 RATIO
[2017-09-24 08:46] VITALS: BP 104/63; PULSE 103; RESP 16; TEMP 98.3; O2SAT 97
[2017-09-24] MEDS ORDERED: LIDOCAINE HCL 1% PF 30 ML VIAL ONE (09:35)
[2017-09-24 09:45] VITALS: BP 87/58; PULSE 93; RESP 18; TEMP 97.8; O2SAT 98
[2017-09-24 10:00] VITALS: BP 89/56; PULSE 98; RESP 18; TEMP 97.7; O2SAT 98
--- NOTE | 2017-09-24 10:12 | RADRPT ---
EXAM DATE/TIME: 09/24/2017 09:31 [facility] COMPARISON: CHEST EXPIRATION ONLY, August 13, 2017, 9:17. INDICATIONS : Post left side thoracentesis. MEDICAL HISTORY : Chronic obstructive pulmonary disease. Carcinoma, lung. Congestive heart failure. SURGICAL HISTORY : aortic valve replacement, lumpectomy ENCOUNTER: Initial ACUITY: 1 day PAIN SCORE: 0/10 LOCATION: Bilateral chest FINDINGS: A single AP erect portable expiratory view the chest was obtained and demonstrates no pneumothorax. T here is no distinct pleural effusion. Mild scarring is again noted with no confluent infiltrates. The heart size remains at the upper limits of normal with no perihilar edema. There are postoperative ch anges with metal stent catheter projected over the heart. CONCLUSION: Stable appearance with no pneumothorax. Channing Sanches MD on September 24, 2017 at 10:09 Board Certified Radiologist. This report was verified electronically.
--- NOTE | 2017-09-24 11:08 | RADRPT ---
EXAM DATE/TIME: 09/24/2017 08:20 [facility] COMPARISON: EXTERNAL COMPARISON: US GUIDED THORACENTESIS LEFT, August 13, 2017, 8:38. [facility], PET/CT TUMOR, Aug 16 2017, M ay 2016, [facility], XR CHEST PA & LAT, July 16, 2017, September 10, 2015, CT CHEST W/O CONTRAST, May 10, 2017, January 02, 2017, July 11, 2016, April 14, 2016. INDICATIONS : Left pleural effusion. MEDICAL HISTORY : Carcinoma, breast. Congestive heart failure. Arthritis. COPD. Dyspnea. Pleural effusion. SURGICAL HISTORY : Left leg and ankle repair. Thoracentesis. ENCOUNTER: Subsequent ACUITY: 2 weeks PAIN SCORE: 0/10 LOCATION: Left chest FLUID: Total volume of 1300 cc of clear, yellow fluid was removed. Fluid was discarded. Thoracentesis was therapeutic only. TECHNIQUE: 1. Ultrasound guidance for thoracentesis. 2. Thoracentesis. The risks, benefits, and alternatives to ultrasound guided thoracentesis were explained to the patien t in lay simple terms, including the risk of bleeding and infection. Written and verbal informed con sent was obtained. Appropriate area for thoracentesis was marked under ultrasound guidance with the patient in the uprig ht position. Overlying skin was prepped and draped in the usual sterile fashion and with local anest hetic, a dermatotomy was made with an 11 blade scalpel. A 6 Lithuanian thoracentesis catheter was placed in the pleural space and fluid was removed. Catheter was then removed and a sterile dressing applie d. There were no immediate complications. The patient tolerated the procedure well and the left the ultrasound suite in stable condition. Chest radiograph is to be obtained. CONCLUSION: Uncomplicated ultrasound guided thoracentesis. Emory Espinoza MD on September 24, 2017 at 11:04 Board Certified Radiologist. This report was verified electronically.
== END 2017-09-24 10:30 | disposition home or self-care (01) ==
LOC: HRAD 07:47 → HRIP 08:00 → HRAD 10:30
PROVIDERS: ATTEND Specialist
DX: J90 Pleural effusion, not elsewhere classified (principal); I50.9 Heart failure, unspecified; Z85.118 Personal history of other malignant neoplasm of bronchus and lung; Z95.2 Presence of prosthetic heart valve; I48.91 Unspecified atrial fibrillation; Z79.02 Long term (current) use of antithrombotics/antiplatelets; Z87.891 Personal history of nicotine dependence; J44.9 Chronic obstructive pulmonary disease, unspecified; Z85.3 Personal history of malignant neoplasm of breast
CPT/HCPCS: 32555; 36415; 71045; 85027; 85610; 85730; C1729

== ENCOUNTER 2017-11-30 03:10 | Inpatient (IN) ==
[2017-12-02] MEDS ORDERED: Naloxone Inj 0.4 MG/ML Vial IV.PUSH PRN (00:01)
[2017-12-02] MEDS ORDERED: Bisacodyl 10 MG Supp RECTAL PRN (00:01)
[2017-12-02] MEDS: Furosemide 20 MG Tablet PO SCH (07:45)
[2017-12-02] MEDS: Benzonatate 100 MG Capsule PO SCH (07:45)
[2017-12-02] MEDS: Docusate Sodium 100 MG Capsule PO SCH ×2 (07:45→20:30)
[2017-12-02] MEDS: Pantoprazole Sodium 20 MG DR Tablet PO SCH (07:45)
[2017-12-02] MEDS: Tiotropium Bromide 18 MCG/ACT Inhaler INH SCH (07:45)
--- NOTE | 2017-12-02 13:49 | P.PNFP ---
Subjective Interval history: She tells me breathing is stable but still requiring O2. Results - Labs Result diagrams: 11/30/17 03:49 12/01/17 04:01 Abnormal lab results 11/30/17 11/30/17 11/30/17 Range/Units 03:49 03:49 03:49 Neut % (Auto) (16.0-70.0) % Lymph % (Auto) (9.0-44.0) % Lymph # (Auto) (1.0-4.8) TH/MM3 PT 11.8 H (9.8-11.6) SEC Sodium 132 L (136-145) MEQ/L Estimated GFR 60 L (>89) ML/MIN Random Glucose 142 H (74-106) MG/DL Calcium (8.5-10.1) MG/DL B-Natriuretic Peptide 1111 H (0-100) PG/ML Albumin 3.2 L (3.4-5.0) GM/DL Lipase 72 L (73-393) U/L Urine Occult Blood (NEG) 11/30/17 11/30/17 12/01/17 Range/Units 03:49 07:30 04:01 Neut % (Auto) 80.9 H (16.0-70.0) % Lymph % (Auto) 8.6 L (9.0-44.0) % Lymph # (Auto) 0.7 L (1.0-4.8) TH/MM3 PT (9.8-11.6) SEC Sodium 134 L (136-145) MEQ/L Estimated GFR 63 L (>89) ML/MIN Random Glucose (74-106) MG/DL Calcium 8.2 L (8.5-10.1) MG/DL B-Natriuretic Peptide (0-100) PG/ML Albumin 2.5 L D (3.4-5.0) GM/DL Lipase (73-393) U/L Urine Occult Blood SMALL H (NEG) Short CBC 11/30/17 Range/Units 03:49 WBC 8.3 (4.0-11.0) TH/MM3 Hgb 14.9 (11.6-15.3) GM/DL Hct 44.7 (35.0-46.0) % Plt Count 299 (150-450) TH/MM3 BMP 11/30/17 12/01/17 03:49 04:01 Sodium 132 L 134 L Potassium 4.2 3.6 Chloride 98 98 Carbon Dioxide 24.6 28.6 BUN 14 16 Creatinine 0.92 0.88 Calcium 8.8 8.2 L Cardiac Enzymes 11/30/17 Range/Units 03:49 Total Creatine Kinase 79 (26-192) U/L Troponin I 0.05 (0.02-0.05) NG/ML Liver Function 11/30/17 12/01/17 Range/Units 03:49 04:01 Total Bilirubin 1.0 0.8 (0.2-1.0) MG/DL AST 19 15 (15-37) U/L ALT 18 20 (10-53) U/L Alkaline Phosphatase 98 78 (45-117) U/L Albumin 3.2 L 2.5 L D (3.4-5.0) GM/DL Urine 11/30/17 Range/Units 07:30 Urine Color COLORLESS (YELLW/STRAW) Urine pH 7.0 (5.0-8.5) Ur Specific Star 1.003 (1.002-1.035) Urine Protein NEG (NEG-TRACE) mg/dL Urine Glucose (UA) NEG (NEG) mg/dL Physical Exam Vital signs: Vital Signs 12/02/17 00:00 12/02/17 08:00 12/02/17 09:32 Temperature 97.0 F L 97.4 F L Pulse Rate 67 90 82 Respiratory Rate 17 16 16 Blood Pressure 101/59 L 111/57 L Pulse Oximetry 94 L 97 98 12/02/17 12:00 Temperature 98.7 F Pulse Rate 87 Respiratory Rate 16 Blood Pressure 89/54 L Pulse Oximetry 99 Intake & Output 12/01/17 12/02/17 12/02/17 18:59 06:59 18:59 Intake Total 240 / 240 Balance 240 / 240 Intake: Oral 240 / 240 Other: # Voids 2 - Constitutional no acute distress - Routine HEENT Exam Head: Present: normocephalic, atraumatic Eye: Present: PERRL ENT: Present: mucous membranes moist - Routine Neck Exam Present: supple - Routine Respiratory Exam Present: diminished air movement - Routine Cardiovascular Exam Present: RRR - Routine Abdominal Exam Present: soft, normoactive bowel sounds - Routine Extremities Exam Present: full ROM - Routine Neurological Exam Present: alert, oriented X3 - Routine Psychiatric Exam Present: normal affect Assessment and Plan - Assessment (1) Pleural effusion, left Code(s): J90 - Pleural effusion, not elsewhere classified Status: Acute Plan: Per Pulm she is for left lung thoracentesis. (2) CHF (congestive heart failure) Code(s): I50.9 - Heart failure, unspecified Status: Chronic Plan: Cont current meds and F/U Cards as an outpatient. - Plan She is for thoracentesis by IR. F/U Pulm recommendations and cont to support with meds and O2 therapy. Discussed Condition With: patient Discharge Planning: Home (2) CHF (congestive heart failure) Qualifiers: Heart failure type: systolic
--- NOTE | 2017-12-02 15:16 | XR ---
EXAM DATE: 12/02/2017 3:14 PM EDT AGE/SEX: 72 years / Female INDICATIONS: Shortness of breath. CLINICAL DATA: This is the patient's initial encounter. Patient reports that signs and symptoms have been present for 1 day and indicates a pain score of 0/10. MEDICAL/SURGICAL HISTORY: Chronic obstructive pulmonary disease. None. [place] [facility]. . FINDINGS: Persistent left base effusion and infiltrate. Diffuse interstitial infiltrate elsewhere. Cardiac cont ours grossly stable. CONCLUSION: Possible slight interval increase in left effusion. Electronically signed by: Tomasz Vaughan MD 12/02/2017 3:15 PM EDT
--- NOTE | 2017-12-02 15:41 | P.PNPL ---
Subjective Interval history: 72 YOWF with COPD,ca lung s/p SBRT, pl effusion has worsening of sob No CP EKG showed changes tr to [facility] Physical Exam Vital signs: Vital Signs 12/02/17 00:00 12/02/17 08:00 12/02/17 09:32 Temperature 97.0 F L 97.4 F L Pulse Rate 67 90 82 Respiratory Rate 17 16 16 Blood Pressure 101/59 L 111/57 L Pulse Oximetry 94 L 97 98 12/02/17 12:00 12/02/17 14:04 Temperature 98.7 F Pulse Rate 87 111 H Respiratory Rate 16 16 Blood Pressure 89/54 L Pulse Oximetry 99 Intake & Output 12/01/17 12/02/17 12/02/17 18:59 06:59 18:59 Intake Total 240 / 240 Balance 240 / 240 Intake: Oral 240 / 240 Other: # Voids 2 Assessment and Plan - Plan Pleural effusion Worsening dysnoea COPD Ca lung, s/p SBRT PLAN: Tr to [facility] SATHISH Vaughan Will need emergent pl fluid drainage Plavix on hold cardiac enzymes Supplement 02
--- NOTE | 2017-12-02 16:07 | P.PCN ---
Date of procedure: 12/02/17 Pre-op diagnosis: Hypoxemia, large left pleural effusion Post-op diagnosis: same Procedure: PROCEDURE: US guided left pigtail chest tube placement CONSENT: Consent was obtained from patient prior to the procedure. Indications, risks, and benefits were explained at length. PROCEDURE SUMMARY: A time out was performed and the chest x-ray, reviewed, the appropriate side was confirmed and marked by US. Hands were washed immediately prior to the procedure and I wore a surgical cap, mask with protective eyewear, sterile gown and sterile gloves throughout the procedure. The patient was prepped and draped in a sterile manner using chlorhexidine scrub after the appropriate level was percussed and confirmed by ultrasound. 1% lidocaine was used to anesthetize the skin, subcutaneous tissue, superior aspect of the rib periosteum and parietal pleura. A small skin incision was made at the marked site and introducer needle was placed over the superior aspect of the rib to locate the pleural fluid; aspirated fluid was slightly cloudy yellow-brown tinged. A guide wire was placed and needle was removed, and after dilatation of track, 8F pigtail catheter was placed using Seldinger technique. Pigtail was connected to -20 wall suction, initial output was 700. A post-procedure chest x-ray is pending at the time of this note. The fluid will be sent for studies. Estimated blood loss is < 1 ml. Anesthesia: local Surgeon: Rodri Tolbert Estimated blood loss (mL): 1 Pathology: other Condition: critical Disposition: ICU
--- NOTE | 2017-12-02 16:54 | XR ---
EXAM DATE: 12/02/2017 4:47 PM EDT AGE/SEX: 72 years / Female INDICATIONS: Status post left thoracentesis. CLINICAL DATA: This is the patient's initial encounter. Patient reports that signs and symptoms have been present for 1 day and indicates a pain score of 0/10. MEDICAL/SURGICAL HISTORY: Chronic obstructive pulmonary disease. Emphysema. Congestive heart failure. . Aortic valve replacement. COMPARISON: [facility] – [place], CHEST 1V SINGLE AP, 12/02/2017. . FINDINGS: A small left pleural effusion is noted. Diffuse infiltrates are noted bilaterally consistent with pul monary edema versus pneumonia. Clinical correlation is recommended. The heart is enlarged. Vascular s tent overlies the heart shadow. Degenerative changes and scoliosis of the thoracolumbar spine are not ed. CONCLUSION: 1. Small left pleural effusion. 2. Diffuse infiltrates bilaterally consistent with pulmonary edema versus pneumonia. Clinical correl ation is recommended. 3. Cardiomegaly. 4. Degenerative changes and scoliosis of the thoracolumbar spine. Electronically signed by: Emory Espinoza MD 12/02/2017 4:53 PM EDT
--- NOTE | 2017-12-02 17:07 | P.CONCC ---
History of Present Illness Service: Critical care Consult date: 12/02/17 Requesting Physician: Jayme Fierro Reason for Consult: Resp failure Primary Care Provider: Jayme Fierro DO Chief Complaint: Acute hypoxemic respiratory failure, CHF and COPD exacerbation History of Present Illness: 72-year-old female with past medical history significant for recurrent left- sided pleural effusion, thoracentesis in the past, history of lung cancer in the past and underwent radiation therapy, severe COPD and continued smoking, cardiomyopathy with EF 20-25%, history of atrial fibrillation, severe aortic stenosis status post TAVR October 2016, and congestive heart failure. 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 She also apparently has history of breast cancer 2003 s/p left side lymph node resection and chemo radiation. She was admitted to hospitalist Dr. Fierro on 11/30/2017 for worsening shortness of breath secondary to COPD and CHF exacerbation. She was noted to have a large left pleural effusion which was scheduled to be drained yesterday but was not done due to administration of Lovenox per RN. Today [facility] was called for severe worsening shortness of breath and hypoxia and patient was emergently moved to ICU. I evaluated the patient immediately in the ICU. Patient appeared in severe respiratory distress, with bilateral wheezing and diminished breath sounds over the left lung field. Quick bedside ultrasound shows large left pleural effusion which is definitely contributing to her shortness of breath. I placed her on immediate [id number] DuoNeb breathing treatments. 100% nonrebreather was already in place. I proceeded with emergent left pigtail chest tube placement, which drained approximately 700 mL of pleural fluid almost immediately with improvement in symptoms. Patient's COPD exacerbation will be treated with IV Solu-Medrol, DuoNeb breathing treatments, Symbicort in addition to the Spiriva which she is on. Also placed her on empiric Levaquin. P.o. Lasix was discontinued and I have put her on IV Lasix 40 mg every 12. I will also obtain a 2D echo Review of Systems other (Severe shortness of breath, respiratory extremis) [facility] - Medical / Surgical Hx Neg / Unobtainable Medical Problems Denied: Unable to Obtain (Unable to obtain at this time due severe shortness of breath and respiratory extremis, but chart reviewed) Surgical History: Unable to Obtain (Respiratory extremis limits history, chart reviewed) - Tobacco History Smoking Status: Current every day smoker - Alcohol History How Often Do You Have a Drink Containing Alcohol: Never - Travel History History of Recent Travel: No Recent Travel in the [place] Within the Last 8 Weeks: No Recent Travel Out of the Country Within the Last 8 Weeks: No Medications and Allergies Active Medications: Active Medications Acetaminophen (Tylenol) 650 mg PO Q4H PRN PRN Reason: HEADACHE Al Hydroxide/Mg Hydroxide (Milk Of Magnesia Liq) 30 ml PO Q12H PRN PRN Reason: MILD CONSTIPATION Albuterol (Duoneb Neb (Tamir)) 1 ampul NEB Q4HR NEB TAMIR Albuterol (Duoneb Neb (Prn)) 1 ampul NEB Q2HR NEB PRN PRN Reason: SHORTNESS OF BREATH Aspirin (Aspirin Chew) 81 mg CHEW DAILY [facility] Last Admin: 12/02/17 08:00 Dose: 81 mg Benzonatate (Tessalon Perles) 100 mg PO DAILY [facility] Last Admin: 12/02/17 07:45 Dose: 100 mg Bisacodyl (Dulcolax Supp) 10 mg RECTAL DAILY PRN PRN Reason: SEVERE CONSTIPATION Carvedilol (Coreg) 3.125 mg PO BID [facility] Last Admin: 12/02/17 07:45 Dose: 3.125 mg Docusate Sodium (Colace) 100 mg PO BID [facility] Last Admin: 12/02/17 07:45 Dose: 100 mg Furosemide (Lasix Inj) 40 mg IV.PUSH Q12H TAMIR Furosemide (Lasix) 20 mg PO DAILY [facility] Last Admin: 12/02/17 07:45 Dose: 20 mg Levofloxacin/Dextrose (Levaquin 500 Mg Premix Inj) 500 mg in 100 mls @ 100 mls/ hr IV.SIG Q24H TAMIR Lactulose (Lactulose Liq) 30 ml PO DAILY PRN PRN Reason: SEVERE CONSTIPATION Methylprednisolone Sodium Succinate (Solumedrol Inj) 60 mg IV.PUSH Q8HR TAMIR Naloxone HCl (Narcan Inj) 0.4 mg IV.PUSH UNSCH PRN PRN Reason: SEE LABEL COMMENTS Pantoprazole Sodium (Protonix) 20 mg PO DAILY [facility] Last Admin: 12/02/17 07:45 Dose: 20 mg Potassium Chloride (Kcl 40 Meq/30 Ml Liq) 40 meq PO DAILY [facility] Sennosides (Senokot) 17.2 mg PO Q12H PRN PRN Reason: MODERATE CONSTIPATION Sodium Chloride (Ns Inj) 2 ml IV.FLUSH UNSCH PRN PRN Reason: FLUSH AFTER USING IV ACCESS Sodium Chloride (Ns Inj) 2 ml IV.FLUSH BID [facility] Last Admin: 12/02/17 07:45 Dose: 2 ml Tiotropium [place] (Spiriva 18 Mcg Inh) 18 mcg INH DAILY [facility] Last Admin: 12/02/17 07:45 Dose: 18 mcg Allergies Allergy/AdvReac Type Severity Reaction Status Date / Time oxycodone Allergy Severe VOMITING Unverified 11/30/17 03:15 morphine AdvReac Unknown nausea and Unverified 11/30/17 03:15 vomiting Home Medications Medication Instructions Recorded Confirmed Type albuterol sulfate 2.5 mg INHALATION Q6H PRN 12/01/17 12/01/17 History albuterol sulfate [Ventolin HFA] 2 puff INHALATION TID 12/01/17 12/01/17 History aspirin 81 mg PO DAILY 12/01/17 12/01/17 History benzonatate [Tessalon Perles] 100 mg PO DAILY 12/01/17 12/01/17 History carvedilol 3.125 mg PO BID 12/01/17 12/01/17 History cholecalciferol (vitamin D3) 5,000 unit PO DAILY 12/01/17 12/01/17 History clopidogrel 75 mg PO DAILY 12/01/17 12/01/17 History docusate sodium [Dulcolax Stool 100 mg PO BID 12/01/17 12/01/17 History Softener (dss)] furosemide 20 mg PO DAILY 12/01/17 12/01/17 History omeprazole 20 mg PO DAILY 12/01/17 12/01/17 History tiotropium bromide [Spiriva with 1 cap INHALATION DAILY 12/01/17 12/01/17 History HandiHaler] Physical Exam Vital signs: Vital Signs 12/02/17 00:00 12/02/17 08:00 12/02/17 09:32 Temperature 97.0 F L 97.4 F L Pulse Rate 67 90 82 Respiratory Rate 17 16 16 Blood Pressure 101/59 L 111/57 L Pulse Oximetry 94 L 97 98 12/02/17 12:00 12/02/17 14:04 12/02/17 16:02 Temperature 98.7 F Pulse Rate 87 111 H 61 Respiratory Rate 16 16 22 Blood Pressure 89/54 L Pulse Oximetry 99 100 12/02/17 16:19 Temperature Pulse Rate Respiratory Rate Blood Pressure Pulse Oximetry 100 Intake & Output 12/01/17 12/02/17 12/02/17 18:59 06:59 18:59 Intake Total 240 / 240 Balance 240 / 240 Intake: Oral 240 / 240 Other: # Voids 2 Narrative: GENERAL: Elderly female in severe respiratory distress, in tripod position breathing about 40 breaths/min SKIN: Cool and dry. HEAD: Atraumatic. Normocephalic. EYES: Pupils equal round and reactive. Extraocular motions intact. ENT: Nose without bleeding, 100% nonrebreather in place NECK: Trachea midline. CARDIOVASCULAR: Tachycardic rate, systolic murmur heard in all areas, RESPIRATORY: Severe wheezing bilaterally but breath sounds are markedly diminished in the left base. Large pleural effusion on the left side on bedside ultrasound GASTROINTESTINAL: Abdomen soft, non-tender, nondistended. MUSCULOSKELETAL: Extremities without clubbing, cyanosis NEUROLOGICAL: Awake and alert. No focal deficits Septic Shock Reassessment Septic shock perfusion: reassessment completed Assessment and Plan - Assessment and Plan Plan: ASSESSMENT: Acute hypoxemic respiratory failure Recurrent large left pleural effusion CHF exacerbation, acute on chronic systolic heart failure COPD exacerbation Cardiomyopathy EF 20-25% History of severe aortic stenosis and moderate mitral regurgitation status post Jimmy October 2016 PLAN: NEURO: -As needed morphine for pain and anxiety RESP: -s/p left 10 [place] pigtail chest tube placement with initial output approximately 1 L, continue chest tube to -20 wall suction -IV Solu-Medrol 60 mg every 8 hours. -Increase DuoNeb to every 4 hours scheduled and every 2 hours as needed -Continue Spiriva and Symbicort -Add Levaquin for COPD exacerbation -BiPAP 12/ PRN -Strongly advised to quit smoking -Sputum culture is available CV: -Hold p.o. Lasix, start IV Lasix 40 mg every 12 with potassium replacement -Continue aspirin and Plavix, continue carvedilol -Currently not on JEROME inhibitors, add JEROME inhibitor if no renal injury from diuresis -Start Aldactone 25 twice daily GI: -Heart healthy diet, Protonix 20 mg daily : -Monitor renal function closely. Peraza catheter for accurate intake output -IV Lasix as above, with potassium replacement ID: -Check sputum culture if available, IV Levaquin HEME: -Monitor CBC, CMP, coags ENDO: -Electrolyte replacement per ICU protocol PROPH: -Bilateral lower extremity SCDs. Lovenox/pantoprazole LINES: -Utilize peripheral IVs, central line if needed CC time 45 min excluding procedures Code Status: Full Discussed Condition With: Dr. Coley
[2017-12-02] MEDS: Levofloxacin 500 mg Premix Inj 500 MG/100 ML PIGGYBACK IV.SIG SCH (17:39)
[2017-12-02 17:42] LABS: Lymphocytes,Pleural Fluid 84 %; Neutrophils,Pleural Fluid 11 %
[2017-12-02 17:43] LABS: RBC,Pleural Fluid 10152 /mm3 (0-0)
[2017-12-02 17:52] LABS: Total Protein,Pleural Fluid 2.7 gm/dL
[2017-12-02] MEDS: Albumin Human 25% Inj 100 ML IV.SIG SCH (17:55)
[2017-12-02] MEDS: Spironolactone 25 MG Tablet PO SCH (17:56)
[2017-12-02 18:12] LABS: Hematocrit 46.3 % (35.0-46.0); Hemoglobin 15.1 gm/dL (11.6-15.3); Mean Corpuscular HGB Conc 32.7 % (32.0-36.0); Mean Corpuscular Hemoglobin 31.5 pg (27.0-34.0); Mean Corpuscular Volume 96.3 fL (80.0-100.0); Mean Platelet Volume 9.1 fL (7.0-11.0); Platelet Count 347 th/mm3 (150-450); Red Blood Count 4.81 mil/mm3 (4.00-5.30); Red Cell Distribution Width 14.1 % (11.6-17.2); White Blood Count 10.1 th/mm3 (4.0-11.0)
[2017-12-02 19:17] LABS: Alanine Aminotransferase 34 U/L (10-53); Alkaline Phosphatase 108 U/L (45-117); Anion Gap 11 meq/L (5-15); Aspartate Aminotransferase 35 U/L (15-37); Blood Urea Nitrogen 17 mg/dL (7-18); Calcium 9.2 mg/dL (8.5-10.1); Carbon Dioxide 26.3 meq/L (21.0-32.0); Chloride 98 meq/L (98-107); Glomerular Filtration Rate 50 mL/min (>89); Glucose,Random 148 mg/dL (74-106); Potassium 4.6 meq/L (3.5-5.1); Sodium 135 meq/L (136-145); Total Protein 8.3 g/dL (6.4-8.2)
[2017-12-02] MEDS: MethylPREDNISolone Sod Succinate Inj 125 MG/2 ML Vial IV.PUSH SCH ×2 (20:30→23:48)
[2017-12-02] MEDS: Acetaminophen 325 MG Tablet PO PRN (23:45)
--- NOTE | 2017-12-03 03:12 | XR ---
EXAM DATE: 12/03/2017 3:03 AM EDT AGE/SEX: 72 years / Female INDICATIONS: Shortness of breath. CLINICAL DATA: This is the patient's subsequent encounter. Patient reports that signs and symptoms h ave been present for 2 days and indicates a pain score of 0/10. MEDICAL/SURGICAL HISTORY: . Chronic obstructive pulmonary disease. Emphysema. Congestive heart failure. . Aortic valve replacement. COMPARISON: [facility] – [place], [place], CHEST 1V SINGLE AP, 12/02/2017. . FINDINGS: Left chest drainage catheter remains projected in the lower left chest. There has been a reduction in the size of left pleural effusion with only a mild residual meniscal interface in the lower left sandra [address]. No evidence of pneumothorax. The right lung is clear with interval resolution of the right infilt rates. The heart is mildly enlarged, stable from prior. CONCLUSION: 1. Reduction in size of left pleural effusion with chest catheter in place. 2. Interval resolution of right lung infiltrates. Electronically signed by: Eusebio Lr MD 12/03/2017 3:10 AM EDT
[2017-12-03 04:59] LABS: Hematocrit 39.4 % (35.0-46.0); Hemoglobin 13.2 gm/dL (11.6-15.3); Mean Corpuscular HGB Conc 33.5 % (32.0-36.0); Mean Corpuscular Hemoglobin 31.3 pg (27.0-34.0); Mean Corpuscular Volume 93.4 fL (80.0-100.0); Mean Platelet Volume 8.5 fL (7.0-11.0); Platelet Count 241 th/mm3 (150-450); Red Blood Count 4.21 mil/mm3 (4.00-5.30); Red Cell Distribution Width 13.7 % (11.6-17.2); White Blood Count 10.1 th/mm3 (4.0-11.0)
[2017-12-03 05:20] LABS: Alanine Aminotransferase 24 U/L (10-53); Albumin 2.9 g/dL (3.4-5.0); Anion Gap 9 meq/L (5-15); Aspartate Aminotransferase 15 U/L (15-37); Blood Urea Nitrogen 18 mg/dL (7-18); Calcium 8.7 mg/dL (8.5-10.1); Chloride 98 meq/L (98-107); Glomerular Filtration Rate 69 mL/min (>89); Glucose,Random 130 mg/dL (74-106); Sodium 135 meq/L (136-145)
[2017-12-03 05:23] LABS: Alkaline Phosphatase 74 U/L (45-117); Total Protein 7.2 g/dL (6.4-8.2)
[2017-12-03] MEDS: Albumin Human 25% Inj 100 ML IV.SIG SCH ×2 (05:43→18:03)
[2017-12-03] MEDS: MethylPREDNISolone Sod Succinate Inj 125 MG/2 ML Vial IV.PUSH SCH ×3 (05:43→22:00)
[2017-12-03] MEDS: Acetaminophen 325 MG Tablet PO PRN ×3 (06:19→13:40)
--- NOTE | 2017-12-03 07:14 | P.PNCC ---
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 She also apparently has history of breast cancer 2003 s/p left side lymph node resection and chemo radiation. She was admitted to hospitalist Dr. Fierro on 11/30/2017 for worsening shortness of breath secondary to COPD and CHF exacerbation. She was noted to have a large left pleural effusion which was scheduled to be drained yesterday but was not done due to administration of Lovenox per RN. Today [facility] was called for severe worsening shortness of breath and hypoxia and patient was emergently moved to ICU. I evaluated the patient immediately in the ICU. Patient appeared in severe respiratory distress, with bilateral wheezing and diminished breath sounds over the left lung field. Quick bedside ultrasound shows large left pleural effusion which is definitely contributing to her shortness of breath. I placed her on immediate [id number] DuoNeb breathing treatments. 100% nonrebreather was already in place. I proceeded with emergent left pigtail chest tube placement, which drained approximately 700 mL of pleural fluid almost immediately with improvement in symptoms. Patient's COPD exacerbation will be treated with IV Solu-Medrol, DuoNeb breathing treatments, Symbicort in addition to the Spiriva which she is on. Also placed her on empiric Levaquin. P.o. Lasix was discontinued and I have put her on IV Lasix 40 mg every 12. I will also obtain a 2D echo 12/03: Breathing more comfortably. Chest tube drained total 1.4 L. Complains of intermittent pleuritic chest pain. Troponin is slightly elevated at 0.21. Will place consult to Dr. Morales who has seen the patient before. 2 D Echo pending. Objective Vital Signs / I&O: Vital Signs 12/02/17 08:00 12/02/17 09:32 12/02/17 12:00 Temperature 97.4 F L 98.7 F Pulse Rate 90 82 87 Respiratory Rate 16 16 16 Blood Pressure 111/57 L 89/54 L Pulse Oximetry 97 98 99 12/02/17 14:04 12/02/17 16:00 12/02/17 16:02 Temperature 97.9 F Pulse Rate 111 H 102 H 61 Respiratory Rate 16 22 Blood Pressure 95/54 L Pulse Oximetry 93 L 100 12/02/17 16:19 12/02/17 20:00 12/02/17 21:01 Temperature 97.7 F Pulse Rate 92 H 83 Respiratory Rate 20 27 H Blood Pressure 99/55 L Pulse Oximetry 100 99 99 12/03/17 00:00 12/03/17 00:53 12/03/17 04:00 Temperature 96.5 F L 96.5 F L Pulse Rate 64 71 74 Respiratory Rate 19 21 20 Blood Pressure 98/54 L 97/53 L Pulse Oximetry 100 100 12/03/17 04:10 Temperature Pulse Rate 74 Respiratory Rate 16 Blood Pressure Pulse Oximetry Intake & Output 12/02/17 12/03/17 12/03/17 18:59 06:59 18:59 Intake Total 200 / 200 400 / 400 Output Total 1600 / 1600 650 / 650 Balance -1400 / -1400 -250 / -250 Weight 46.6 kg Intake: IV 200 / 200 Flexbumin 25% Inj 100 ML @ 60 100 / 100 mls/hr IV.SIG Q12H JOVANA Rx#: [id number] Levaquin 500 mg Premix Inj 500 100 / 100 mg In 100 ml @ 100 mls/hr IV. SIG Q24H JOVANA Rx#:[id number] Oral 200 / 200 200 / 200 Output: Urine 200 / 200 650 / 650 Chest Tube Drainage 1400 / 1400 0 / 0 #1 Left Upper 1400 / 1400 0 / 0 Other: # Voids 4 Date of Last Bowel Movement 12/03/17 # Bowel Movements 1 Result Diagrams: 12/03/17 04:00 12/03/17 04:00 Objective Remarks: GENERAL: Elderly female breathing more comfortably now SKIN: Cool and dry. HEAD: Atraumatic. Normocephalic. EYES: Pupils equal round and reactive. Extraocular motions intact. ENT: Nose without bleeding, NC in place NECK: Trachea midline. CARDIOVASCULAR: S1-S2 normal no murmurs, systolic murmur heard in all areas, RESPIRATORY: Mild expiratory wheezing. Left pigtail chest tube in place with total output 1.4 L since placement GASTROINTESTINAL: Abdomen soft, non-tender, nondistended. MUSCULOSKELETAL: Extremities without clubbing, cyanosis NEUROLOGICAL: Awake and alert. No focal deficits Assessment and Plan - Assessment and Plan Plan: ASSESSMENT: Acute hypoxemic respiratory failure CHF exacerbation, acute on chronic systolic heart failure Recurrent large left pleural effusion Chest pain with mild troponin elevation COPD exacerbation Cardiomyopathy EF 20-25% History of severe aortic stenosis and moderate mitral regurgitation status post Jimmy October 2016 PLAN: NEURO: -As needed morphine for pain and anxiety RESP: -s/p left 10 [place] pigtail chest tube placement total output 1.4 l, continue chest tube to -20 wall suction -Fluids slightly hemorrhagic, cytology and cultures are pending at this time -IV Solu-Medrol 60 mg every 8 hours. -DuoNeb to every 4 hours scheduled and every 2 hours as needed -Continue Spiriva and Symbicort -Levaquin for COPD exacerbation -BiPAP 12/ PRN -Strongly advised to quit smoking -Sputum culture is available CV: -IV Lasix 40 mg every 12 with potassium replacement -Continue aspirin and Plavix, continue carvedilol -Currently not on JEROME inhibitors, add JEROME inhibitor if no renal injury from diuresis -Aldactone 25 twice daily -2D echo repeat troponin pending -Cardiology consult to Dr. Morales -Previous TAVR October 2016 GI: -Heart healthy diet, Protonix 20 mg daily : -Monitor renal function closely. Peraza catheter for accurate intake output -IV Lasix as above, with potassium replacement ID: -Sputum culture if available, IV Levaquin HEME: -Monitor CBC, CMP, coags ENDO: -Electrolyte replacement per ICU protocol PROPH: -Bilateral lower extremity SCDs. Lovenox/pantoprazole LINES: -Utilize peripheral IVs, central line if needed Level [address] C[address] off[address] Fierro to assume care. Transfer to Med Surg with Tele
[2017-12-03] MEDS ORDERED: Enoxaparin Inj 40 MG/0.4 ML Syringe SQ SCH (09:00)
[2017-12-03] MEDS: Pantoprazole Sodium 20 MG DR Tablet PO SCH (09:59)
[2017-12-03] MEDS: Docusate Sodium 100 MG Capsule PO SCH ×2 (09:59→22:32)
[2017-12-03] MEDS: Benzonatate 100 MG Capsule PO SCH (10:00)
[2017-12-03] MEDS: Tiotropium Bromide 18 MCG/ACT Inhaler INH SCH (10:01)
--- NOTE | 2017-12-03 10:29 | P.CONCA ---
<Gomez Fisher - Last Filed: 12/03/17 10:18> History of Present Illness Primary Care Provider: Jayme Fierro DO Chief Complaint: Acute hypoxemic respiratory failure, CHF and COPD exacerbation History of Present Illness: 72-year-old female with past medical history of TAVR 10/2016, systolic CHF/ cardiomyopathy EF 25%, COPD, history of lung cancer status post radiation with recurrent pleural effusion. The patient presented with shortness of breath. Chest x-ray showed pleural effusion, pulmonary edema. Patient was treated by primary team for COPD exacerbation and oral diuretics continued. The patient had respiratory distress 12/02, upkeep mechanic consulted, large pleural effusion identified on bedside ultrasound, emergent chest tube placed, patient's breathing now improved. The patient does not have some left-sided pleuritic chest discomfort since chest tube placed. The patient has been having shortness of breath for the past few weeks. She hadn't noticed any leg swelling or chest pain. She denies any prior history of cardiac stents. She denies any prior history of A. fib. Follows with pulmonology for COPD and recurrent pleural effusion. Review of Systems All other systems reviewed negative except as stated in HPI PMFSH - Surgical History Surgical History: Surgical History (Last Updated 12/03/17 @ 10:27 by MARIJA Rojas) Aortic valve replaced - Tobacco History Smoking Status: Current every day smoker - Alcohol History How Often Do You Have a Drink Containing Alcohol: Never - Travel History History of Recent Travel: No Recent Travel in the [place] Within the Last 8 Weeks: No Recent Travel Out of the Country Within the Last 8 Weeks: No Medications and Allergies Allergies Allergy/AdvReac Type Severity Reaction Status Date / Time oxycodone Allergy Severe VOMITING Unverified 11/30/17 03:15 morphine AdvReac Unknown nausea and Unverified 11/30/17 03:15 vomiting Home Medications Medication Instructions Recorded Confirmed Type albuterol sulfate 2.5 mg INHALATION Q6H PRN 12/01/17 12/01/17 History albuterol sulfate [Ventolin HFA] 2 puff INHALATION TID 12/01/17 12/01/17 History aspirin 81 mg PO DAILY 12/01/17 12/01/17 History benzonatate [Tessalon Perles] 100 mg PO DAILY 12/01/17 12/01/17 History carvedilol 3.125 mg PO BID 12/01/17 12/01/17 History cholecalciferol (vitamin D3) 5,000 unit PO DAILY 12/01/17 12/01/17 History clopidogrel 75 mg PO DAILY 12/01/17 12/01/17 History docusate sodium [Dulcolax Stool 100 mg PO BID 12/01/17 12/01/17 History Softener (dss)] furosemide 20 mg PO DAILY 12/01/17 12/01/17 History omeprazole 20 mg PO DAILY 12/01/17 12/01/17 History tiotropium bromide [Spiriva with 1 cap INHALATION DAILY 12/01/17 12/01/17 History HandiHaler] Active Medications: Active Medications Acetaminophen (Tylenol) 650 mg PO Q4H PRN PRN Reason: HEADACHE Last Admin: 12/03/17 10:12 Dose: 650 mg Al Hydroxide/Mg Hydroxide (Milk Of Magnesia Liq) 30 ml PO Q12H PRN PRN Reason: MILD CONSTIPATION Albuterol (Duoneb Neb (Tamir)) 1 ampul NEB Q4HR NEB [facility] Last Admin: 12/03/17 08:44 Dose: 1 ampul Albuterol (Duoneb Neb (Prn)) 1 ampul NEB Q2HR NEB PRN PRN Reason: SHORTNESS OF BREATH Aspirin (Aspirin Chew) 81 mg CHEW DAILY [facility] Last Admin: 12/03/17 09:59 Dose: 81 mg Benzonatate (Tessalon Perles) 100 mg PO DAILY [facility] Last Admin: 12/03/17 10:00 Dose: 100 mg Bisacodyl (Dulcolax Supp) 10 mg RECTAL DAILY PRN PRN Reason: SEVERE CONSTIPATION Carvedilol (Coreg) 3.125 mg PO BID [facility] Last Admin: 12/03/17 09:59 Dose: 3.125 mg Docusate Sodium (Colace) 100 mg PO BID [facility] Last Admin: 12/03/17 09:59 Dose: 100 mg Enoxaparin Sodium (Lovenox Inj) 40 mg SQ DAILY [facility] Last Admin: 12/03/17 09:58 Dose: 40 mg Furosemide (Lasix Inj) 20 mg IV.PUSH Q12H [facility] Last Admin: 12/03/17 09:58 Dose: 20 mg Furosemide (Lasix) 20 mg PO DAILY [facility] Last Admin: 12/02/17 07:45 Dose: 20 mg Levofloxacin/Dextrose (Levaquin 500 Mg Premix Inj) 500 mg in 100 mls @ 100 mls/ hr IV.SIG Q24H [facility] Last Infusion: 12/02/17 19:00 Dose: Infused Albumin Human (Flexbumin 25% Inj) 100 mls @ 60 mls/hr IV.SIG Q12H [facility] Last Admin: 12/03/17 05:43 Dose: 100 mls/hr Lactulose (Lactulose Liq) 30 ml PO DAILY PRN PRN Reason: SEVERE CONSTIPATION Methylprednisolone Sodium Succinate (Solumedrol Inj) 60 mg IV.PUSH Q8HR [facility] Last Admin: 12/03/17 05:43 Dose: 60 mg Naloxone HCl (Narcan Inj) 0.4 mg IV.PUSH UNSCH PRN PRN Reason: SEE LABEL COMMENTS Pantoprazole Sodium (Protonix) 20 mg PO DAILY [facility] Last Admin: 12/03/17 09:59 Dose: 20 mg Potassium Chloride (Kcl 40 Meq/30 Ml Liq) 40 meq PO DAILY [facility] Last Admin: 12/02/17 20:34 Dose: Not Given Sennosides (Senokot) 17.2 mg PO Q12H PRN PRN Reason: MODERATE CONSTIPATION Sodium Chloride (Ns Inj) 2 ml IV.FLUSH UNSCH PRN PRN Reason: FLUSH AFTER USING IV ACCESS Sodium Chloride (Ns Inj) 2 ml IV.FLUSH BID [facility] Last Admin: 12/03/17 09:59 Dose: 2 ml Spironolactone (Aldactone) 25 mg PO BID@0900,1800 [facility] Last Admin: 12/02/17 17:56 Dose: 25 mg Tiotropium [place] (Spiriva 18 Mcg Inh) 18 mcg INH DAILY [facility] Last Admin: 12/03/17 10:01 Dose: 18 mcg Exam Vital signs: Vital Signs 12/02/17 12:00 12/02/17 14:04 12/02/17 16:00 Temperature 98.7 F 97.9 F Pulse Rate 87 111 H 102 H Respiratory Rate 16 16 Blood Pressure 89/54 L 95/54 L Pulse Oximetry 99 93 L 12/02/17 16:02 12/02/17 16:19 12/02/17 20:00 Temperature 97.7 F Pulse Rate 61 92 H Respiratory Rate 22 20 Blood Pressure 99/55 L Pulse Oximetry 100 100 99 12/02/17 21:01 12/03/17 00:00 07/02/18 00:53 Temperature 96.5 F L Pulse Rate 83 64 71 Respiratory Rate 27 H 19 21 Blood Pressure 98/54 L Pulse Oximetry 99 100 12/03/17 04:00 12/03/17 04:10 12/03/17 08:43 Temperature 96.5 F L Pulse Rate 74 74 91 H Respiratory Rate 20 16 18 Blood Pressure 97/53 L Pulse Oximetry 100 100 Intake & Output 12/02/17 12/03/17 12/03/17 18:59 06:59 18:59 Intake Total 200 / 200 400 / 400 Output Total 1600 / 1600 650 / 650 Balance -1400 / -1400 -250 / -250 Weight 102 lb 11.767 oz Intake: IV 200 / 200 Flexbumin 25% Inj 100 ML @ 60 100 / 100 mls/hr IV.SIG Q12H [facility] Rx#: [id number] Levaquin 500 mg Premix Inj 500 100 / 100 mg In 100 ml @ 100 mls/hr IV. SIG Q24H [facility] Rx#:[id number] Oral 200 / 200 200 / 200 Output: Urine 200 / 200 650 / 650 Chest Tube Drainage 1400 / 1400 0 / 0 #1 Left Upper 1400 / 1400 0 / 0 Other: # Voids 4 Date of Last Bowel Movement 12/03/17 # Bowel Movements 1 Narrative: GENERAL: Well-developed fair-nourished chronically ill-appearing female. Currently appears stable and in no acute distress. NECK: No carotid bruits. No JVD. CARDIOVASCULAR: Tachycardic regular rate and regular rhythm. Parker valve sounds noted. Chest tube in place on left flank. RESPIRATORY: No accessory muscle use. Clear to auscultation. Breath sounds equal bilaterally. MUSCULOSKELETAL: No clubbing or cyanosis. No edema. NEUROLOGICAL: Awake and alert. Normal speech. Results 12/03/17 04:00 12/03/17 04:00 Cardiac Enzymes 12/02/17 12/02/17 12/02/17 Range/Units 15:35 15:35 15:35 AST 35 (15-37) U/L Troponin I 0.21 H (0.02-0.05) ng/mL B-Natriuretic Peptide 1800 H (0-100) pg/mL 12/03/17 Range/Units 04:00 AST 15 (15-37) U/L Troponin I (0.02-0.05) ng/mL B-Natriuretic Peptide (0-100) pg/mL Coagulation 12/02/17 Range/Units 15:35 B-Natriuretic Peptide 1800 H (0-100) pg/mL CBC 12/02/17 12/03/17 Range/Units 15:35 04:00 WBC 10.1 10.1 (4.0-11.0) th/mm3 RBC 4.81 4.21 (4.00-5.30) mil/mm3 Hgb 15.1 13.2 (11.6-15.3) gm/dL Hct 46.3 H 39.4 (35.0-46.0) % Plt Count 347 241 D (150-450) th/mm3 Comprehensive Metabolic Panel 12/02/17 12/03/17 Range/Units 15:35 04:00 Sodium 135 L 135 L (136-145) meq/L Potassium 4.6 4.0 (3.5-5.1) meq/L Chloride 98 98 (98-107) meq/L Carbon Dioxide 26.3 28.0 (21.0-32.0) meq/L BUN 17 18 (7-18) mg/dL Creatinine 1.08 H 0.82 (0.50-1.00) mg/dL Calcium 9.2 8.7 (8.5-10.1) mg/dL AST 35 15 (15-37) U/L ALT 34 24 (10-53) U/L Alkaline Phosphatase 108 74 (45-117) U/L Total Protein 8.3 H 7.2 D (6.4-8.2) g/dL Albumin 3.0 L 2.9 L (3.4-5.0) g/dL Intake and Output 12/02/17 12/03/17 12/03/17 22:59 06:59 14:59 Intake Total 400 / 400 200 / 200 Output Total 1600 / 1600 650 / 650 Balance -1200 / -1200 -450 / -450 Intake: IV 200 / 200 Flexbumin 25% Inj 100 ML @ 60 100 / 100 mls/hr IV.SIG Q12H [facility] Rx#: [id number] Levaquin 500 mg Premix Inj 500 100 / 100 mg In 100 ml @ 100 mls/hr IV. SIG Q24H [facility] Rx#:[id number] Oral 200 / 200 200 / 200 Output: Urine 200 / 200 650 / 650 Chest Tube Drainage 1400 / 1400 0 / 0 #1 Left Upper 1400 / 1400 0 / 0 Other: # Voids 4 Date of Last Bowel Movement 12/03/17 # Bowel Movements 1 Weight 102 lb 11.767 oz Assessment and Plan - Plan 72-year-old female with past medical history of TAVR 10/2016, systolic CHF/ cardiomyopathy EF 25%, COPD, history of lung cancer status post radiation with recurrent pleural effusion. The patient presented with shortness of breath. Chest x-ray showed pleural effusion, pulmonary edema. Patient was treated by primary team for COPD exacerbation and oral diuretics continued. The patient had respiratory distress 12/02, upkeep mechanic consulted, large pleural effusion identified on bedside ultrasound, emergent chest tube placed, patient's breathing now improved. Systolic CHF: On Lasix 20 mg daily as outpatient, currently being diuresed with Lasix 20 mg IV twice daily. Clinically appears better compensated at this time. Monitor I's and O's and renal function. Troponin elevation: Minimal elevation of 0.21, no chest pain, EKG with no definite ischemic changes likely demand mediated secondary to CHF and respiratory distress. Repeat third troponin. History of TAVR: Stable. Can discontinue Plavix. Respiratory distress secondary recurrent pleural effusion, now improved after chest tube placement: Pulmonology on board. Discussed Condition With: Patient with RN at bedside, upkeep mechanic, Dr. Morales <Ari Morales - Last Filed: 12/03/17 16:06> History of Present Illness Primary Care Provider: Jayme Fierro DO [facility] - Medical History Medical History: Medical History (Last Updated 12/03/17 @ 10:27 by MARIJA Rojas) COPD (chronic obstructive pulmonary disease) Cardiomyopathy Systolic CHF, chronic - Surgical History Surgical History: Surgical History (Last Updated 12/03/17 @ 10:27 by MAIRJA Rojas) Aortic valve replaced Medications and Allergies Active Medications: Active Medications Acetaminophen (Tylenol) 650 mg PO Q4H PRN PRN Reason: HEADACHE Last Admin: 12/03/17 13:40 Dose: 650 mg Al Hydroxide/Mg Hydroxide (Milk Of Magnesia Liq) 30 ml PO Q12H PRN PRN Reason: MILD CONSTIPATION Albuterol (Duoneb Neb (Tamir)) 1 ampul NEB Q4HR NEB [facility] Last Admin: 12/03/17 13:04 Dose: 1 ampul Albuterol (Duoneb Neb (Prn)) 1 ampul NEB Q2HR NEB PRN PRN Reason: SHORTNESS OF BREATH Aspirin (Aspirin Chew) 81 mg CHEW DAILY [facility] Last Admin: 12/03/17 09:59 Dose: 81 mg Benzonatate (Tessalon Perles) 100 mg PO DAILY [facility] Last Admin: 12/03/17 10:00 Dose: 100 mg Bisacodyl (Dulcolax Supp) 10 mg RECTAL DAILY PRN PRN Reason: SEVERE CONSTIPATION Carvedilol (Coreg) 3.125 mg PO BID [facility] Last Admin: 12/03/17 09:59 Dose: 3.125 mg Docusate Sodium (Colace) 100 mg PO BID [facility] Last Admin: 12/03/17 09:59 Dose: 100 mg Enoxaparin Sodium (Lovenox Inj) 40 mg SQ DAILY [facility] Last Admin: 12/03/17 09:58 Dose: 40 mg Furosemide (Lasix Inj) 20 mg IV.PUSH Q12H [facility] Last Admin: 12/03/17 09:58 Dose: 20 mg Furosemide (Lasix) 20 mg PO DAILY [facility] Last Admin: 12/02/17 07:45 Dose: 20 mg Levofloxacin/Dextrose (Levaquin 500 Mg Premix Inj) 500 mg in 100 mls @ 100 mls/ hr IV.SIG Q24H [facility] Last Infusion: 12/02/17 19:00 Dose: Infused Albumin Human (Flexbumin 25% Inj) 100 mls @ 60 mls/hr IV.SIG Q12H [facility] Last Admin: 12/03/17 05:43 Dose: 100 mls/hr Lactulose (Lactulose Liq) 30 ml PO DAILY PRN PRN Reason: SEVERE CONSTIPATION Methylprednisolone Sodium Succinate (Solumedrol Inj) 60 mg IV.PUSH Q8HR [facility] Last Admin: 12/03/17 13:41 Dose: 60 mg Naloxone HCl (Narcan Inj) 0.4 mg IV.PUSH UNSCH PRN PRN Reason: SEE LABEL COMMENTS Pantoprazole Sodium (Protonix) 20 mg PO DAILY [facility] Last Admin: 12/03/17 09:59 Dose: 20 mg Potassium Chloride (K-Dur) 40 meq PO DAILY [facility] Last Admin: 12/03/17 14:03 Dose: 40 meq Sennosides (Senokot) 17.2 mg PO Q12H PRN PRN Reason: MODERATE CONSTIPATION Sodium Chloride (Ns Inj) 2 ml IV.FLUSH UNSCH PRN PRN Reason: FLUSH AFTER USING IV ACCESS Sodium Chloride (Ns Inj) 2 ml IV.FLUSH BID [facility] Last Admin: 12/03/17 09:59 Dose: 2 ml Spironolactone (Aldactone) 25 mg PO BID@0900,1800 [facility] Last Admin: 12/03/17 13:40 Dose: 25 mg Tiotropium [place] (Spiriva 18 Mcg Inh) 18 mcg INH DAILY [facility] Last Admin: 12/03/17 10:01 Dose: 18 mcg Exam Vital signs: Vital Signs 12/02/17 16:19 12/02/17 20:00 12/02/17 21:01 Temperature 97.7 F Pulse Rate 92 H 83 Respiratory Rate 20 27 H Blood Pressure 99/55 L Pulse Oximetry 100 99 99 12/03/17 00:00 12/03/17 00:53 12/03/17 04:00 Temperature 96.5 F L 96.5 F L Pulse Rate 64 71 74 Respiratory Rate 19 21 20 Blood Pressure 98/54 L 97/53 L Pulse Oximetry 100 100 12/03/17 04:10 12/03/17 08:00 12/03/17 08:43 Temperature 98.0 F Pulse Rate 74 96 H 91 H Respiratory Rate 16 26 H 18 Blood Pressure 116/69 Pulse Oximetry 98 100 12/03/17 09:00 12/03/17 10:00 12/03/17 12:00 Temperature 98.2 F Pulse Rate 96 H 96 H 95 H Respiratory Rate 20 Blood Pressure 105/66 Pulse Oximetry 100 12/03/17 13:03 Temperature Pulse Rate 91 H Respiratory Rate 18 Blood Pressure Pulse Oximetry Intake & Output 12/02/17 12/03/17 12/03/17 18:59 06:59 18:59 Intake Total 200 / 200 400 / 400 Output Total 1600 / 1600 650 / 650 Balance -1400 / -1400 -250 / -250 Weight 46.6 kg Intake: IV 200 / 200 Flexbumin 25% Inj 100 ML @ 60 100 / 100 mls/hr IV.SIG Q12H [facility] Rx#: [id number] Levaquin 500 mg Premix Inj 500 100 / 100 mg In 100 ml @ 100 mls/hr IV. SIG Q24H [facility] Rx#:[id number] Oral 200 / 200 200 / 200 Output: Urine 200 / 200 650 / 650 Chest Tube Drainage 1400 / 1400 0 / 0 #1 Left Upper 1400 / 1400 0 / 0 Other: # Voids 4 Date of Last Bowel Movement 12/03/17 12/03/17 # Bowel Movements 1 Results 12/03/17 04:00 12/03/17 04:00 Cardiac Enzymes 12/02/17 12/02/17 12/02/17 Range/Units 15:35 15:35 15:35 AST 35 (15-37) U/L Troponin I 0.21 H (0.02-0.05) ng/mL B-Natriuretic Peptide 1800 H (0-100) pg/mL 12/03/17 12/03/17 Range/Units 04:00 09:40 AST 15 (15-37) U/L Troponin I 0.09 H D (0.02-0.05) ng/mL B-Natriuretic Peptide (0-100) pg/mL Coagulation 12/02/17 Range/Units 15:35 B-Natriuretic Peptide 1800 H (0-100) pg/mL CBC 12/02/17 12/03/17 Range/Units 15:35 04:00 WBC 10.1 10.1 (4.0-11.0) th/mm3 RBC 4.81 4.21 (4.00-5.30) mil/mm3 Hgb 15.1 13.2 (11.6-15.3) gm/dL Hct 46.3 H 39.4 (35.0-46.0) % Plt Count 347 241 D (150-450) th/mm3 Comprehensive Metabolic Panel 12/02/17 12/03/17 Range/Units 15:35 04:00 Sodium 135 L 135 L (136-145) meq/L Potassium 4.6 4.0 (3.5-5.1) meq/L Chloride 98 98 (98-107) meq/L Carbon Dioxide 26.3 28.0 (21.0-32.0) meq/L BUN 17 18 (7-18) mg/dL Creatinine 1.08 H 0.82 (0.50-1.00) mg/dL Calcium 9.2 8.7 (8.5-10.1) mg/dL AST 35 15 (15-37) U/L ALT 34 24 (10-53) U/L Alkaline Phosphatase 108 74 (45-117) U/L Total Protein 8.3 H 7.2 D (6.4-8.2) g/dL Albumin 3.0 L 2.9 L (3.4-5.0) g/dL Intake and Output 12/03/17 12/03/17 12/03/17 06:59 14:59 22:59 Intake Total 200 / 200 Output Total 650 / 650 Balance -450 / -450 Intake: Oral 200 / 200 Output: Urine 650 / 650 Chest Tube Drainage 0 / 0 #1 Left Upper 0 / 0 Other: # Voids 4 Date of Last Bowel Movement 12/03/17 12/03/17 # Bowel Movements 1 Weight 46.6 kg Assessment and Plan - Attending Attestation severely reduced LV function EF 20% Decrease aldactone DC BB start entresto continue diuretic
--- NOTE | 2017-12-03 11:24 | ECG ---
Date Performed: 12/02/2017 Time Performed: 14:59:24 PTAGE: 72 years EKG: SINUS TACHYCARDIA WITH OCCASIONAL SUPRAVENTRICULAR PREMATURE COMPLEXES LEFT VENTRICULAR HYP ERTROPHY AND ST-T CHANGE POSSIBLE ANTEROSEPTAL MYOCARDIAL INFARCTION , OF INDETERMINATE AGE ABNORMAL ECG PREVIOUS TRACING : 11/30/2017 03.45 Since the previous tracing, no significant change noted DOCTOR: Mitchell Azul Interpretating Date/Time 12/03/2017 11:23:51
[2017-12-03] MEDS: Spironolactone 25 MG Tablet PO SCH (13:40)
--- NOTE | 2017-12-03 13:54 | ECHRPT ---
Indication: CONCLUSIONS The left ventricular systolic function is severely reduced with an estimated ejection fraction in th e range of 20-25%. Moderately dilated left ventricle. The left atrial size is [id number] dilated. Severe mitral valve regurgitation. Aortic valve area is 0.91 cm. Aortic valve mean gradient is 4 mmHg. Status-post aortic valve repair (TAVR) The estimated pulmonary arterial pressure is 61.3 mmHg. There is moderate to severe tricuspid valve regurgitation. BP: / HR: Rhythm: MEASUREMENTS (Male / Female) Normal Values Technical Quality:Good 2D ECHO LV Diastolic Diameter PLAX 6.0 cm 4.2 - 5.9 / 3.9 - 5.3 cm LV Systolic Diameter PLAX 5.6 cm IVS Diastolic Thickness 1.1 cm 0.6 - 1.0 / 0.6 - 0.9 cm LVPW Diastolic Thickness 1.1 cm 0.6 - 1.0 / 0.6 - 0.9 cm LV Relative Wall Thickness 0.4 RV Internal Dim ED PLAX 2.1 cm LVOT Diameter 1.8 cm LA Systolic Diameter LX 4.6 cm 3.0 - 4.0 / 2.7 - 3.8 cm M-MODE Aortic Root Diameter MM 2.3 cm DOPPLER AV Peak Velocity 145.0 cm/s AV Peak Gradient 8.4 mmHg AV Mean Gradient 4.0 mmHg AV Velocity Time Integral 25.4 cm LVOT Peak Velocity 53.4 cm/s LVOT Peak Gradient 1.1 mmHg LVOT Velocity Time Integral 9.0 cm AV Area Cont Eq vti 0.9 cm AV Area Cont Eq pk 0.9 cm Mitral E Point Velocity 102.0 cm/s Mitral A Point Velocity 42.0 cm/s Mitral E to A Ratio 2.4 LV E' Lateral Velocity 5.5 cm/s Mitral E to LV E' Lateral Ratio 18.7 TR Peak Velocity 358.0 cm/s TR Peak Gradient 51.3 mmHg Right Atrial Pressure 10.0 mmHg Pulmonary Artery Systolic Pressu 61.3 mmHg Right Ventricular Systolic Press 61.3 mmHg FINDINGS LEFT VENTRICLE The left ventricular systolic function is severely reduced with an estimated ejection fraction in th e range of 20-25%. Moderately dilated left ventricle. RIGHT VENTRICLE The right ventricular size is normal. LEFT ATRIUM The left atrial size is [id number] dilated. RIGHT ATRIUM The right atrial size is normal. ATRIAL SEPTUM Normal atrial septal thickness without atrial level shunting by limited color doppler interrogation. AORTA The aortic root and proximal ascending aorta are not well visualized. MITRAL VALVE Severe mitral valve regurgitation. AORTIC VALVE Aortic valve area is 0.91 cm. Aortic valve mean gradient is 4 mmHg. Status-post aortic valve repair. TRICUSPID VALVE The estimated pulmonary arterial pressure is 61.3 mmHg. There is moderate to severe tricuspid valve regurgitation. PULMONARY VALVE No pulmonary valve regurgitation or stenosis. VESSELS The inferior vena cava was not well visualized. PERICARDIUM There is no pericardial effusion. Ari Morales MD, FACC (Electronically Signed) Final Date:03 December 2017 13:53
--- NOTE | 2017-12-03 14:18 | P.PNFP ---
Subjective Interval history: Reports some mild discomfort from Chest tube. Only want Tylenol Breathing better. Sat's maintained on NC Results - Labs Result diagrams: 12/03/17 04:00 12/03/17 04:00 Abnormal lab results 12/02/17 12/02/17 12/02/17 Range/Units 15:05 15:35 15:35 Hct 46.3 H (35.0-46.0) % Sodium (136-145) meq/L Creatinine (0.50-1.00) mg/dL Estimated GFR (>89) mL/min POC Glucose 137 H (68-110) mg/dl Random Glucose (74-106) mg/dL Troponin I 0.21 H (0.02-0.05) ng/mL B-Natriuretic Peptide (0-100) pg/mL Total Protein (6.4-8.2) g/dL Albumin (3.4-5.0) g/dL Pleural RBC (0-0) /mm3 Pleural Nuc Cells (0-10) /mm3 12/02/17 12/02/17 12/02/17 Range/Units 15:35 15:35 16:00 Hct (35.0-46.0) % Sodium 135 L (136-145) meq/L Creatinine 1.08 H (0.50-1.00) mg/dL Estimated GFR 50 L (>89) mL/min POC Glucose (68-110) mg/dl Random Glucose 148 H (74-106) mg/dL Troponin I (0.02-0.05) ng/mL B-Natriuretic Peptide 1800 H (0-100) pg/mL Total Protein 8.3 H (6.4-8.2) g/dL Albumin 3.0 L (3.4-5.0) g/dL Pleural RBC 76090 H (0-0) /mm3 Pleural Nuc Cells 1443 H (0-10) /mm3 12/03/17 12/03/17 Range/Units 04:00 09:40 Hct (35.0-46.0) % Sodium 135 L (136-145) meq/L Creatinine (0.50-1.00) mg/dL Estimated GFR 69 L (>89) mL/min POC Glucose (68-110) mg/dl Random Glucose 130 H (74-106) mg/dL Troponin I 0.09 H D (0.02-0.05) ng/mL B-Natriuretic Peptide (0-100) pg/mL Total Protein (6.4-8.2) g/dL Albumin 2.9 L (3.4-5.0) g/dL Pleural RBC (0-0) /mm3 Pleural Nuc Cells (0-10) /mm3 Short CBC 12/02/17 12/03/17 Range/Units 15:35 04:00 WBC 10.1 10.1 (4.0-11.0) th/mm3 Hgb 15.1 13.2 (11.6-15.3) gm/dL Hct 46.3 H 39.4 (35.0-46.0) % Plt Count 347 241 D (150-450) th/mm3 BMP 12/02/17 12/03/17 15:35 04:00 Sodium 135 L 135 L Potassium 4.6 4.0 Chloride 98 98 Carbon Dioxide 26.3 28.0 BUN 17 18 Creatinine 1.08 H 0.82 Calcium 9.2 8.7 Cardiac Enzymes 12/02/17 12/03/17 Range/Units 15:35 09:40 Troponin I 0.21 H 0.09 H D (0.02-0.05) ng/mL Liver Function 12/02/17 12/03/17 Range/Units 15:35 04:00 Total Bilirubin 0.8 1.0 (0.2-1.0) mg/dL AST 35 15 (15-37) U/L ALT 34 24 (10-53) U/L Alkaline Phosphatase 108 74 (45-117) U/L Albumin 3.0 L 2.9 L (3.4-5.0) g/dL - Imaging Impressions Chest X-Ray 12/02/17 00:00 CONCLUSION: 1. Small left pleural effusion. 2. Diffuse infiltrates bilaterally consistent with pulmonary edema versus pneumonia. Clinical correlation is recommended. 3. Cardiomegaly. 4. Degenerative changes and scoliosis of the thoracolumbar spine. Chest X-Ray 12/02/17 14:41 CONCLUSION: Possible slight interval increase in left effusion. Chest X-Ray 12/03/17 06:00 CONCLUSION: 1. Reduction in size of left pleural effusion with chest catheter in place. 2. Interval resolution of right lung infiltrates. Physical Exam Vital signs: Vital Signs 12/02/17 16:00 12/02/17 16:02 12/02/17 16:19 Temperature 97.9 F Pulse Rate 102 H 61 Respiratory Rate 22 Blood Pressure 95/54 L Pulse Oximetry 93 L 100 100 12/02/17 20:00 12/02/17 21:01 12/03/17 00:00 Temperature 97.7 F 96.5 F L Pulse Rate 92 H 83 64 Respiratory Rate 20 27 H 19 Blood Pressure 99/55 L 98/54 L Pulse Oximetry 99 99 100 12/03/17 00:53 12/03/17 04:00 12/03/17 04:10 Temperature 96.5 F L Pulse Rate 71 74 74 Respiratory Rate 21 20 16 Blood Pressure 97/53 L Pulse Oximetry 100 12/03/17 08:00 12/03/17 08:43 12/03/17 09:00 Temperature 98.0 F Pulse Rate 96 H 91 H 96 H Respiratory Rate 26 H 18 Blood Pressure 116/69 Pulse Oximetry 98 100 12/03/17 10:00 12/03/17 12:00 12/03/17 13:03 Temperature 98.2 F Pulse Rate 96 H 95 H 91 H Respiratory Rate 20 18 Blood Pressure 105/66 Pulse Oximetry 100 Intake & Output 12/02/17 12/03/17 12/03/17 18:59 06:59 18:59 Intake Total 200 / 200 400 / 400 Output Total 1600 / 1600 650 / 650 Balance -1400 / -1400 -250 / -250 Weight 46.6 kg Intake: IV 200 / 200 Flexbumin 25% Inj 100 ML @ 60 100 / 100 mls/hr IV.SIG Q12H [facility] Rx#: [id number] Levaquin 500 mg Premix Inj 500 100 / 100 mg In 100 ml @ 100 mls/hr IV. SIG Q24H [facility] Rx#:[id number] Oral 200 / 200 200 / 200 Output: Urine 200 / 200 650 / 650 Chest Tube Drainage 1400 / 1400 0 / 0 #1 Left Upper 1400 / 1400 0 / 0 Other: # Voids 4 Date of Last Bowel Movement 12/03/17 12/03/17 # Bowel Movements 1 - Constitutional no acute distress - Routine HEENT Exam Eye: Present: PERRL ENT: Present: oropharynx clear - Routine Chest/Breast/Axilla Exam Chest wall: Present: tenderness (At chest tube site) - Routine Respiratory Exam Present: CTA bilaterally - Routine Cardiovascular Exam Present: RRR, S1, S2 - Routine Abdominal Exam Present: soft, normoactive bowel sounds - Routine Neurological Exam Present: alert, oriented X3 Assessment and Plan - Assessment (1) Pleural effusion, left Code(s): J90 - Pleural effusion, not elsewhere classified Status: Acute Plan: Per Pulm she is for left lung thoracentesis. (2) CHF (congestive heart failure) Code(s): I50.9 - Heart failure, unspecified Status: Chronic Plan: Cont current meds and F/U Cards as an outpatient. - Plan 12/03/17 Chest tube placed, Breathing better. Cxr shows improvement of effusion. Bilingual Receptionist signed off , will be transferred to [facility] with cardiac monitoring. Pain controlled with Tylenol. requesting antacid for Heartburn. Vss afebrile. (2) CHF (congestive heart failure) Qualifiers: Heart failure type: systolic
[2017-12-03] MEDS: Levofloxacin 500 mg Premix Inj 500 MG/100 ML PIGGYBACK IV.SIG SCH (18:03)
[2017-12-04] MEDS: Albumin Human 25% Inj 100 ML IV.SIG SCH ×2 (05:18→17:23)
[2017-12-04] MEDS: MethylPREDNISolone Sod Succinate Inj 125 MG/2 ML Vial IV.PUSH SCH ×3 (05:19→22:09)
--- NOTE | 2017-12-04 08:48 | ECG ---
Date Performed: 12/03/2017 Time Performed: 09:54:08 PTAGE: 72 years EKG: Sinus rhythm POSSIBLE LEFT ATRIAL ENLARGEMENT LEFT VENTRICULAR HYPERTROPHY AND ST-T CHANGE ABNORMAL ECG PREVIOUS TRACING : 12/02/2017 14.59 DOCTOR: Mitchell Azul Interpretating Date/Time 12/04/2017 08:47:41
[2017-12-04] MEDS: Pantoprazole Sodium 20 MG DR Tablet PO SCH (09:03)
[2017-12-04] MEDS: Spironolactone 25 MG Tablet PO SCH (09:03)
[2017-12-04] MEDS: Docusate Sodium 100 MG Capsule PO SCH ×2 (09:03→22:09)
[2017-12-04] MEDS: Benzonatate 100 MG Capsule PO SCH (09:04)
--- NOTE | 2017-12-04 09:49 | P.PNCA ---
<Jackelin Rhodes A - Last Filed: 12/04/17 09:51> Subjective Interval history: overall feeling better. improved leg and abdominal edema. no chest pain, breathing well on nasal O2 2L. L-side chest tube in place. Physical Exam Vital signs: Vital Signs 12/03/17 10:00 12/03/17 12:00 12/03/17 13:03 Temperature 98.2 F Pulse Rate 96 H 95 H 91 H Respiratory Rate 20 18 Blood Pressure 105/66 Pulse Oximetry 100 12/03/17 16:00 12/03/17 16:31 12/03/17 20:00 Temperature 98.6 F 97.7 F Pulse Rate 86 84 88 Respiratory Rate 23 18 28 H Blood Pressure 102/57 L 106/59 L Pulse Oximetry 100 100 12/03/17 21:15 12/03/17 21:17 12/04/17 00:00 Temperature 97.4 F L Pulse Rate 90 86 Respiratory Rate 18 24 Blood Pressure 100/58 L Pulse Oximetry 100 100 12/04/17 04:00 12/04/17 04:21 12/04/17 04:22 Temperature 97.7 F Pulse Rate 78 83 Respiratory Rate 28 H 18 Blood Pressure 99/55 L Pulse Oximetry 100 12/04/17 07:57 12/04/17 07:58 12/04/17 08:00 Temperature 97.9 F Pulse Rate 88 92 H Respiratory Rate 18 22 Blood Pressure 107/56 L Pulse Oximetry 97 100 Intake & Output 12/03/17 12/04/17 12/04/17 18:59 06:59 18:59 Intake Total 720 / 720 1020 / 1020 Output Total 190 / 190 940 / 940 Balance 530 / 530 80 / 80 Weight 47.2 kg Intake: IV 300 / 300 Flexbumin 25% Inj 100 ML @ 60 200 / 200 mls/hr IV.SIG Q12H [facility] Rx#: [id number] Levaquin 500 mg Premix Inj 500 100 / 100 mg In 100 ml @ 100 mls/hr IV. SIG Q24H [facility] Rx#:[id number] Oral 720 / 720 720 / 720 Output: Urine 750 / 750 Chest Tube Drainage 190 / 190 190 / 190 #1 Left Upper 190 / 190 190 / 190 Other: # Voids 3 3 Date of Last Bowel Movement 12/03/17 12/03/17 12/03/17 # Bowel Movements 1 1 - Constitutional no acute distress - Routine Respiratory Exam Absent: accessory muscle use, rales, rhonchi, wheezes, crackles - Detailed Respiratory Exam left lower Present: decreased breath sounds - Routine Cardiovascular Exam Present: RRR, S1, S2 - Detailed Cardiovascular Exam: Murmur 2 Location: Present: left lower sternal border - Routine Extremities Exam Absent: edema - Routine Neurological Exam Present: alert, oriented X3, CN II-XII intact - Routine Psychiatric Exam Present: normal affect, good insight, good judgment Assessment and Plan - Assessment (1) Pleural effusion, left Code(s): J90 - Pleural effusion, not elsewhere classified Status: Acute (2) CHF (congestive heart failure) Code(s): I50.9 - Heart failure, unspecified Status: Chronic - Plan 72-year-old female with past medical history of TAVR 10/2016, systolic CHF/ cardiomyopathy EF 25%, COPD, history of lung cancer status post radiation with recurrent pleural effusion. The patient presented with shortness of breath. Chest x-ray showed pleural effusion, pulmonary edema. Patient was treated by primary team for COPD exacerbation and oral diuretics continued. The patient had respiratory distress 12/02, webmethods consultant consulted, large pleural effusion identified on bedside ultrasound, emergent chest tube placed, patient's breathing now improved. Systolic CHF: cont diuresis with Lasix 20 mg IV twice daily and aldactone 25mgqd. Clinically appears better compensated at this time. Monitor I's and O' s and renal function. good output yesterday -1.5L cardiomyopathy: echo shows stable EF 20-25%, severe MR and elevated PAP 61mmHg SBP will not allow addition of ACEi/ARB or bb at this time. Troponin elevation: troponins trending downward (0.21--> 0.09 --> 0.09), no chest pain, EKG with no definite ischemic changes likely demand mediated secondary to CHF and respiratory distress. History of TAVR: Stable. Respiratory distress secondary recurrent pleural effusion, now improved after chest tube placement: Pulmonology on board. <AndrewAri - Last Filed: 12/04/17 12:08> Physical Exam Vital signs: Vital Signs 12/03/17 13:03 12/03/17 16:00 12/03/17 16:31 Temperature 98.6 F Pulse Rate 91 H 86 84 Respiratory Rate 18 23 18 Blood Pressure 102/57 L Pulse Oximetry 100 12/03/17 20:00 12/03/17 21:15 12/03/17 21:17 Temperature 97.7 F Pulse Rate 88 90 Respiratory Rate 28 H 18 Blood Pressure 106/59 L Pulse Oximetry 100 100 12/04/17 00:00 12/04/17 04:00 12/04/17 04:21 Temperature 97.4 F L 97.7 F Pulse Rate 86 78 83 Respiratory Rate 24 28 H 18 Blood Pressure 100/58 L 99/55 L Pulse Oximetry 100 12/04/17 04:22 12/04/17 07:57 12/04/17 07:58 Temperature Pulse Rate 88 Respiratory Rate 18 Blood Pressure Pulse Oximetry 100 97 12/04/17 08:00 12/04/17 10:00 12/04/17 11:23 Temperature 97.9 F Pulse Rate 92 H 91 H 81 Respiratory Rate 22 18 Blood Pressure 107/56 L Pulse Oximetry 100 Intake & Output 12/03/17 12/04/17 12/04/17 18:59 06:59 18:59 Intake Total 720 / 720 1020 / 1020 Output Total 190 / 190 940 / 940 Balance 530 / 530 80 / 80 Weight 47.2 kg Intake: IV 300 / 300 Flexbumin 25% Inj 100 ML @ 60 200 / 200 mls/hr IV.SIG Q12H [facility] Rx#: [id number] Levaquin 500 mg Premix Inj 500 100 / 100 mg In 100 ml @ 100 mls/hr IV. SIG Q24H [facility] Rx#:[id number] Oral 720 / 720 720 / 720 Output: Urine 750 / 750 Chest Tube Drainage 190 / 190 190 / 190 #1 Left Upper 190 / 190 190 / 190 Other: # Voids 3 3 Date of Last Bowel Movement 12/03/17 12/03/17 12/03/17 # Bowel Movements 1 1 Assessment and Plan - Assessment (1) Pleural effusion, left Code(s): J90 - Pleural effusion, not elsewhere classified Status: Acute (2) CHF (congestive heart failure) Code(s): I50.9 - Heart failure, unspecified Status: Chronic - Attending Attestation good diuresis yesterday -1.5L slightly positive today aldactone reduced to 25 daily continue lasix IV BID monitor Cr SBP 107. entresto started. BB dc'd due to hypotension chest tube severe MR. cardiomyopathy. TAVR guarded prognosis <Jackelin Rhodes - Last Filed: 12/04/17 09:51> (2) CHF (congestive heart failure) Qualifiers: Heart failure type: systolic <Ari Morales - Last Filed: 12/04/17 12:08> (2) CHF (congestive heart failure) Qualifiers: Heart failure type: systolic
[2017-12-04] MEDS: Tiotropium Bromide 18 MCG/ACT Inhaler INH SCH (10:09)
--- NOTE | 2017-12-04 11:18 | P.PNFP ---
Subjective Interval history: Feeling good this am Breathing easily Tenderness to Left chest wall s/p chest tube controlled with Tylenol Results - Labs Result diagrams: 12/03/17 04:00 12/03/17 04:00 Abnormal lab results 12/03/17 12/03/17 Range/Units 09:40 15:59 Troponin I 0.09 H D 0.09 H (0.02-0.05) ng/mL Cardiac Enzymes 12/03/17 12/03/17 Range/Units 09:40 15:59 Troponin I 0.09 H D 0.09 H (0.02-0.05) ng/mL Physical Exam Vital signs: Vital Signs 12/03/17 12:00 12/03/17 13:03 12/03/17 16:00 Temperature 98.2 F 98.6 F Pulse Rate 95 H 91 H 86 Respiratory Rate 20 18 23 Blood Pressure 105/66 102/57 L Pulse Oximetry 100 100 12/03/17 16:31 12/03/17 20:00 12/03/17 21:15 Temperature 97.7 F Pulse Rate 84 88 90 Respiratory Rate 18 28 H 18 Blood Pressure 106/59 L Pulse Oximetry 100 12/03/17 21:17 12/04/17 00:00 12/04/17 04:00 Temperature 97.4 F L 97.7 F Pulse Rate 86 78 Respiratory Rate 24 28 H Blood Pressure 100/58 L 99/55 L Pulse Oximetry 100 100 12/04/17 04:21 12/04/17 04:22 12/04/17 07:57 Temperature Pulse Rate 83 88 Respiratory Rate 18 18 Blood Pressure Pulse Oximetry 100 12/04/17 07:58 12/04/17 08:00 12/04/17 10:00 Temperature 97.9 F Pulse Rate 92 H 91 H Respiratory Rate 22 Blood Pressure 107/56 L Pulse Oximetry 97 100 Intake & Output 12/03/17 12/04/17 12/04/17 18:59 06:59 18:59 Intake Total 720 / 720 1020 / 1020 Output Total 190 / 190 940 / 940 Balance 530 / 530 80 / 80 Weight 47.2 kg Intake: IV 300 / 300 Flexbumin 25% Inj 100 ML @ 60 200 / 200 mls/hr IV.SIG Q12H [facility] Rx#: [id number] Levaquin 500 mg Premix Inj 500 100 / 100 mg In 100 ml @ 100 mls/hr IV. SIG Q24H [facility] Rx#:[id number] Oral 720 / 720 720 / 720 Output: Urine 750 / 750 Chest Tube Drainage 190 / 190 190 / 190 #1 Left Upper 190 / 190 190 / 190 Other: # Voids 3 3 Date of Last Bowel Movement 12/03/17 12/03/17 12/03/17 # Bowel Movements 1 1 - Constitutional no acute distress, cooperative - Routine HEENT Exam Eye: Present: PERRL ENT: Present: oropharynx clear - Routine Neck Exam Present: supple - Detailed Chest Wall Exam Chest wall: Present: crepitus (Chest tube site without) - Routine Respiratory Exam Present: CTA bilaterally, diminished air movement (at bases) - Routine Cardiovascular Exam Present: RRR, S1, S2 - Routine Abdominal Exam Present: soft, normoactive bowel sounds - Routine Skin Exam Present: intact - Routine Neurological Exam Present: alert, oriented X3 - Routine Psychiatric Exam Present: normal affect, cooperative Assessment and Plan - Assessment (1) Pleural effusion, left Code(s): J90 - Pleural effusion, not elsewhere classified Status: Acute Plan: Per Pulm she is for left lung thoracentesis. (2) CHF (congestive heart failure) Code(s): I50.9 - Heart failure, unspecified Status: Chronic Plan: Cont current meds and F/U Cards as an outpatient. Current visit: Yes - Plan 12/03/17 Chest tube placed, Breathing better. Cxr shows improvement of effusion. Warehouse Record Clerk signed off , will be transferred to [facility] with cardiac monitoring. Pain controlled with Tylenol. requesting antacid for Heartburn. Vss afebrile. 12/04/17- Reports good night, breathing at ease, CT in place to left, pulmonary following. ordered. Still having some mild Reflux. [facility]. PT activity - (2) CHF (congestive heart failure) Qualifiers: Heart failure type: systolic
--- NOTE | 2017-12-04 14:37 | XR ---
EXAM DATE: 12/04/2017 2:31 PM EDT AGE/SEX: 72 years / Female INDICATIONS: Accidental removal of chest tube. CLINICAL DATA: This is the patient's subsequent encounter. Patient reports that signs and symptoms h ave been present for 3 days and indicates a pain score of Nonresponsive. MEDICAL/SURGICAL HISTORY: . Chronic obstructive pulmonary disease. Emphysema. Congestive heart failure. . Aortic valve replacement. COMPARISON: [facility] – [place], CHEST 1V SINGLE AP, 12/03/2017. . FINDINGS: The cardiac silhouette is enlarged in transverse diameter. There is prominence of the central pulmona ry vasculature with indistinct vascular margins compatible with vascular congestion but no evidence o f overt failure. There is no evidence of pneumothorax. The lungs are free of acute parenchymal opacit y. No pulmonary nodules or pleural effusions are identified. CONCLUSION: There is no evidence of pneumothorax. Electronically signed by: Mitchell Valente MD 12/04/2017 2:36 PM EDT
[2017-12-04] MEDS: Levofloxacin 500 mg Premix Inj 500 MG/100 ML PIGGYBACK IV.SIG SCH (17:30)
--- NOTE | 2017-12-04 19:50 | P.PNPL ---
Subjective Interval history: 72 YOWF with COPD,Ca lung s/p SBRT, pl eff Left chest tube fell off On NC Mild sob Physical Exam Vital signs: Vital Signs 12/03/17 20:00 12/03/17 21:15 12/03/17 21:17 Temperature 97.7 F Pulse Rate 88 90 Respiratory Rate 28 H 18 Blood Pressure 106/59 L Pulse Oximetry 100 100 12/04/17 00:00 12/04/17 04:00 12/04/17 04:21 Temperature 97.4 F L 97.7 F Pulse Rate 86 78 83 Respiratory Rate 24 28 H 18 Blood Pressure 100/58 L 99/55 L Pulse Oximetry 100 12/04/17 04:22 12/04/17 07:57 12/04/17 07:58 Temperature Pulse Rate 88 Respiratory Rate 18 Blood Pressure Pulse Oximetry 100 97 12/04/17 08:00 12/04/17 10:00 12/04/17 11:23 Temperature 97.9 F Pulse Rate 92 H 91 H 81 Respiratory Rate 22 18 Blood Pressure 107/56 L Pulse Oximetry 100 12/04/17 12:00 12/04/17 16:00 12/04/17 18:57 Temperature 98.1 F 97.6 F Pulse Rate 94 H 77 Respiratory Rate 20 18 Blood Pressure 78/62 L 79/41 L Pulse Oximetry 100 98 98 12/04/17 18:58 Temperature Pulse Rate 82 Respiratory Rate 18 Blood Pressure Pulse Oximetry Intake & Output 12/04/17 12/04/17 12/05/17 06:59 18:59 06:59 Intake Total 1020 / 1020 200 / 200 Output Total 940 / 940 Balance 80 / 80 200 / 200 Weight 47.2 kg 47.2 kg Intake: IV 300 / 300 200 / 200 Flexbumin 25% Inj 100 ML @ 60 200 / 200 100 / 100 mls/hr IV.SIG Q12H [facility] Rx#: [id number] Levaquin 500 mg Premix Inj 500 100 / 100 100 / 100 mg In 100 ml @ 100 mls/hr IV. SIG Q24H [facility] Rx#:[id number] Oral 720 / 720 Output: Urine 750 / 750 Chest Tube Drainage 190 / 190 #1 Left Upper 190 / 190 Other: # Voids 3 Date of Last Bowel Movement 12/03/17 12/03/17 # Bowel Movements 1 Weight On Admission 47.2 kg GENERAL: Thin built WF,NAD SKIN: Warm and dry. HEAD: Normocephalic. EYES: No scleral icterus. No injection or drainage. NECK: Supple, trachea midline. No JVD or lymphadenopathy. CARDIOVASCULAR: Regular rate and rhythm without murmurs, gallops, or rubs. RESPIRATORY: Breath sounds equal bilaterally. No accessory muscle use. GASTROINTESTINAL: Abdomen soft, non-tender, nondistended. MUSCULOSKELETAL: No cyanosis, or edema. BACK: Nontender without obvious deformity. No CVA tenderness. Assessment and Plan - Plan Pleural effusion Worsening dysnoea COPD Ca lung, s/p SBRT PLAN: Aerosol nebs Diurease IV Albumin Cont Abx
[2017-12-04] MEDS ORDERED: Sod Chloride 0.9% Inj 1,000 ML IV.SIG ONE (23:15)
[2017-12-05 05:50] LABS: Calcium 9.5 mg/dL (8.5-10.1); Carbon Dioxide 26.1 meq/L (21.0-32.0); Potassium 4.5 meq/L (3.5-5.1)
[2017-12-05] MEDS: MethylPREDNISolone Sod Succinate Inj 125 MG/2 ML Vial IV.PUSH SCH ×3 (06:12→22:49)
[2017-12-05] MEDS: Albumin Human 25% Inj 100 ML IV.SIG SCH ×2 (06:13→17:29)
[2017-12-05] MEDS: Pantoprazole Sodium 20 MG DR Tablet PO SCH (08:25)
[2017-12-05] MEDS: Benzonatate 100 MG Capsule PO SCH (08:25)
[2017-12-05] MEDS: Docusate Sodium 100 MG Capsule PO SCH ×2 (08:25→22:48)
[2017-12-05] MEDS: Spironolactone 25 MG Tablet PO SCH (08:26)
[2017-12-05] MEDS: Tiotropium Bromide 18 MCG/ACT Inhaler INH SCH (09:04)
--- NOTE | 2017-12-05 12:09 | P.PNCA ---
Subjective Interval history: SOB improved Physical Exam Vital signs: Vital Signs 12/04/17 16:00 12/04/17 18:57 12/04/17 18:58 Temperature 97.6 F Pulse Rate 77 82 Respiratory Rate 18 18 Blood Pressure 79/41 L Pulse Oximetry 98 98 12/04/17 20:00 12/04/17 20:01 12/05/17 00:00 Temperature 97.4 F L 97.7 F Pulse Rate 81 76 Respiratory Rate 18 16 Blood Pressure 90/54 L 97/53 L 101/51 L Pulse Oximetry 97 12/05/17 00:40 12/05/17 03:26 12/05/17 03:28 Temperature Pulse Rate 70 100 H Respiratory Rate 16 16 Blood Pressure Pulse Oximetry 98 12/05/17 04:00 12/05/17 07:43 12/05/17 09:07 Temperature 97.4 F L 98.7 F Pulse Rate 90 81 95 H Respiratory Rate 16 16 16 Blood Pressure 100/55 L 101/60 Pulse Oximetry 98 98 12/05/17 11:18 Temperature Pulse Rate 92 H Respiratory Rate 14 Blood Pressure Pulse Oximetry Intake & Output 12/04/17 12/05/17 12/05/17 18:59 06:59 18:59 Intake Total 200 / 200 600 / 600 Balance 200 / 200 600 / 600 Weight 47.2 kg Intake: IV 200 / 200 600 / 600 Flexbumin 25% Inj 100 ML @ 60 100 / 100 100 / 100 mls/hr IV.SIG Q12H [facility] Rx#: [id number] Levaquin 500 mg Premix Inj 500 100 / 100 mg In 100 ml @ 100 mls/hr IV. SIG Q24H [facility] Rx#:[id number] NS Inj 1,000 ML @ 100 mls/hr IV 500 / 500 .SIG .Q10H [facility] Rx#:[id number] Other: # Voids 1 Date of Last Bowel Movement 12/03/17 12/03/17 Weight On Admission 47.2 kg - Constitutional no acute distress - Routine Neck Exam Present: JVD - Routine Respiratory Exam Present: decreased breath sounds - Routine Abdominal Exam Present: normoactive bowel sounds - Routine Extremities Exam Absent: edema - Routine Neurological Exam Present: alert. Absent: sensory deficit, motor deficit Assessment and Plan - Assessment (1) Pleural effusion, left Code(s): J90 - Pleural effusion, not elsewhere classified Status: Acute (2) CHF (congestive heart failure) Code(s): I50.9 - Heart failure, unspecified Status: Chronic - Plan 72-year-old female with past medical history of TAVR 10/2016, systolic CHF/ cardiomyopathy EF 25%, COPD, history of lung cancer status post radiation with recurrent pleural effusion. The patient presented with shortness of breath. Chest x-ray showed pleural effusion, pulmonary edema. Patient was treated by primary team for COPD exacerbation and oral diuretics continued. The patient had respiratory distress 12/02, plastics design engineer consulted, large pleural effusion identified on bedside ultrasound, emergent chest tube placed, patient's breathing now improved. Systolic CHF: restart oral lasix Monitor I's and O's and renal function. good output yesterday -1.5L cardiomyopathy: echo shows stable EF 20-25%, severe MR and elevated PAP 61mmHg entresto added. BB discontinued due to hypotension. aldactone dc'd due to renal fxn and hypotension. Troponin elevation: Demand mediated secondary to CHF and respiratory distress. History of TAVR: Stable. Respiratory distress secondary recurrent pleural effusion, chest tube placement : continue supportive care (2) CHF (congestive heart failure) Qualifiers: Heart failure type: systolic
--- NOTE | 2017-12-05 15:01 | P.PNFP ---
Subjective Interval history: Denies Cp, SOB Breathing better Chest tube out Results - Labs Result diagrams: 12/03/17 04:00 12/05/17 04:35 Abnormal lab results 12/05/17 12/05/17 Range/Units 04:35 04:35 Sodium 131 L (136-145) meq/L Chloride 95 L (98-107) meq/L BUN 39 H (7-18) mg/dL Creatinine 1.17 H (0.50-1.00) mg/dL Estimated GFR 46 L (>89) mL/min Random Glucose 151 H (74-106) mg/dL B-Natriuretic Peptide 1384 H (0-100) pg/mL BMP 12/05/17 04:35 Sodium 131 L Potassium 4.5 Chloride 95 L Carbon Dioxide 26.1 BUN 39 H Creatinine 1.17 H Calcium 9.5 Physical Exam Vital signs: Vital Signs 12/04/17 16:00 12/04/17 18:57 12/04/17 18:58 Temperature 97.6 F Pulse Rate 77 82 Respiratory Rate 18 18 Blood Pressure 79/41 L Pulse Oximetry 98 98 12/04/17 20:00 12/04/17 20:01 12/05/17 00:00 Temperature 97.4 F L 97.7 F Pulse Rate 81 76 Respiratory Rate 18 16 Blood Pressure 90/54 L 97/53 L 101/51 L Pulse Oximetry 97 12/05/17 00:40 12/05/17 03:26 12/05/17 03:28 Temperature Pulse Rate 70 100 H Respiratory Rate 16 16 Blood Pressure Pulse Oximetry 98 12/05/17 04:00 12/05/17 07:43 12/05/17 08:00 Temperature 97.4 F L 98.7 F Pulse Rate 90 81 93 H Respiratory Rate 16 16 Blood Pressure 100/55 L 101/60 Pulse Oximetry 98 12/05/17 09:07 12/05/17 11:18 12/05/17 12:00 Temperature 98.3 F Pulse Rate 95 H 92 H 89 Respiratory Rate 16 14 18 Blood Pressure 92/52 L Pulse Oximetry 98 100 Intake & Output 12/04/17 12/05/17 12/05/17 18:59 06:59 18:59 Intake Total 200 / 200 1100 / 1100 Balance 200 / 200 1100 / 1100 Weight 47.2 kg Intake: IV 200 / 200 1100 / 1100 Flexbumin 25% Inj 100 ML @ 60 100 / 100 100 / 100 mls/hr IV.SIG Q12H JOVANA Rx#: [id number] Levaquin 500 mg Premix Inj 500 100 / 100 mg In 100 ml @ 100 mls/hr IV. SIG Q24H JOVANA Rx#:[id number] NS Inj 1,000 ML @ 100 mls/hr IV 1000 / 1000 .SIG .Q10H ONE Rx#:[id number] Other: # Voids 1 Date of Last Bowel Movement 12/03/17 12/03/17 Weight On Admission 47.2 kg - Constitutional no acute distress, cooperative - Routine HEENT Exam Head: Present: normocephalic Eye: Present: PERRL - Routine Neck Exam Present: supple - Routine Respiratory Exam Present: wheezes (scattered Expratory wheezes, Equal B/L ) - Routine Cardiovascular Exam Present: S1, S2 - Routine Abdominal Exam Present: soft, normoactive bowel sounds - Routine Skin Exam Present: intact - Routine Neurological Exam Present: alert, oriented X3 - Routine Psychiatric Exam Present: cooperative Assessment and Plan - Assessment (1) Pleural effusion, left Code(s): J90 - Pleural effusion, not elsewhere classified Status: Acute Plan: Chest tube placed on Fallen out on 12/04/17 (2) CHF (congestive heart failure) Code(s): I50.9 - Heart failure, unspecified Status: Chronic Plan: EF 20-25%, On lasix, Entresto started, Cardiology on board, Follow rec's. Current visit: Yes - Assessment and Plan 12/03/17 Chest tube placed, Breathing better. Cxr shows improvement of effusion. [employer] signed off , will be transferred to [facility] with cardiac monitoring. Pain controlled with Tylenol. requesting antacid for Heartburn. Vss afebrile. 12/04/17- Reports good night, breathing at ease, CT in place to left, pulmonary following. ordered. Still having some mild Reflux. Orders to transfer to [facility]. PT activity 12/05/17- Transferred to [facility], voices that during transfer CT came out. CXR show resolved effusion. Cardiology following for Chf, being diuresed. B/P low cont to monitor, labs in am. - (2) CHF (congestive heart failure) Qualifiers: Heart failure type: systolic
[2017-12-05] MEDS: Levofloxacin 500 mg Premix Inj 500 MG/100 ML PIGGYBACK IV.SIG SCH (16:01)
--- NOTE | 2017-12-05 16:44 | P.PNPL ---
Subjective Interval history: 72 YOWF with COPD,Ca lung s/p SBRT, pl eff Left chest tube fell off On NC Mild sob No new complaint Physical Exam Vital signs: Vital Signs 12/04/17 18:57 12/04/17 18:58 12/04/17 20:00 Temperature 97.4 F L Pulse Rate 82 81 Respiratory Rate 18 18 Blood Pressure 90/54 L Pulse Oximetry 98 97 12/04/17 20:01 12/05/17 00:00 12/05/17 00:40 Temperature 97.7 F Pulse Rate 76 70 Respiratory Rate 16 16 Blood Pressure 97/53 L 101/51 L Pulse Oximetry 12/05/17 03:26 12/05/17 03:28 12/05/17 04:00 Temperature 97.4 F L Pulse Rate 100 H 90 Respiratory Rate 16 16 Blood Pressure 100/55 L Pulse Oximetry 98 98 12/05/17 07:43 12/05/17 08:00 12/05/17 09:07 Temperature 98.7 F Pulse Rate 81 93 H 95 H Respiratory Rate 16 16 Blood Pressure 101/60 Pulse Oximetry 98 12/05/17 11:18 12/05/17 12:00 Temperature 98.3 F Pulse Rate 92 H 89 Respiratory Rate 14 18 Blood Pressure 92/52 L Pulse Oximetry 100 Intake & Output 12/04/17 12/05/17 12/05/17 18:59 06:59 18:59 Intake Total 200 / 200 1100 / 1100 Balance 200 / 200 1100 / 1100 Weight 47.2 kg Intake: IV 200 / 200 1100 / 1100 Flexbumin 25% Inj 100 ML @ 60 100 / 100 100 / 100 mls/hr IV.SIG Q12H JOVANA Rx#: [id number] Levaquin 500 mg Premix Inj 500 100 / 100 mg In 100 ml @ 100 mls/hr IV. SIG Q24H JOVANA Rx#:[id number] NS Inj 1,000 ML @ 100 mls/hr IV 1000 / 1000 .SIG .Q10H ONE Rx#:[id number] Other: # Voids 1 Date of Last Bowel Movement 12/03/17 12/03/17 Weight On Admission 47.2 kg GENERAL:Thin built wf NAD SKIN: Warm and dry. HEAD: Normocephalic. EYES: No scleral icterus. No injection or drainage. NECK: Supple, trachea midline. No JVD or lymphadenopathy. CARDIOVASCULAR: Regular rate and rhythm without murmurs, gallops, or rubs. RESPIRATORY: Breath sounds equal bilaterally. No accessory muscle use. GASTROINTESTINAL: Abdomen soft, non-tender, nondistended. MUSCULOSKELETAL: No cyanosis, or edema. BACK: Nontender without obvious deformity. No CVA tenderness. Assessment and Plan - Plan Pleural effusion Dysnoea, improved COPD Ca lung, s/p SBRT PLAN: Aerosol nebs Diurease IV Albumin Cont Abx Supplement 02
[2017-12-06] MEDS: Albumin Human 25% Inj 100 ML IV.SIG SCH ×2 (06:48→17:27)
[2017-12-06] MEDS: MethylPREDNISolone Sod Succinate Inj 125 MG/2 ML Vial IV.PUSH SCH ×3 (06:48→21:38)
--- NOTE | 2017-12-06 08:04 | P.PNCA ---
<Gomez Fisher - Last Filed: 12/06/17 08:05> Subjective Interval history: She reports her Lasix was held and feels like she is retaining some fluid and getting some abdominal distention, although she has been constipated as well. She reports her Entresto has been held for low blood pressures. Physical Exam Vital signs: Vital Signs 12/05/17 09:07 12/05/17 11:18 12/05/17 12:00 Temperature 98.3 F Pulse Rate 95 H 92 H 89 Respiratory Rate 16 14 18 Blood Pressure 92/52 L Pulse Oximetry 98 100 12/05/17 16:00 12/05/17 16:44 12/05/17 20:00 Temperature 97.5 F L 97.8 F Pulse Rate 87 89 86 Respiratory Rate 20 14 16 Blood Pressure 96/53 L 105/54 L Pulse Oximetry 98 99 12/06/17 00:00 12/06/17 00:13 12/06/17 01:57 Temperature 97.8 F Pulse Rate 90 76 Respiratory Rate 18 18 18 Blood Pressure 98/53 L Pulse Oximetry 98 12/06/17 03:33 12/06/17 03:46 12/06/17 04:00 Temperature 97.6 F Pulse Rate 90 92 H Respiratory Rate 16 18 16 Blood Pressure 102/55 L Pulse Oximetry 97 Intake & Output 12/05/17 12/06/17 12/06/17 18:59 06:59 18:59 Intake Total 1200 / 1200 100 / 100 Balance 1200 / 1200 100 / 100 Weight 0 oz Intake: IV 1200 / 1200 100 / 100 Flexbumin 25% Inj 100 ML @ 60 100 / 100 100 / 100 mls/hr IV.SIG Q12H JOVANA Rx#: [id number] Levaquin 500 mg Premix Inj 500 100 / 100 mg In 100 ml @ 100 mls/hr IV. SIG Q24H JOVANA Rx#:[id number] NS Inj 1,000 ML @ 100 mls/hr IV 1000 / 1000 .SIG .Q10H ONE Rx#:[id number] Other: # Voids 1 Narrative: GENERAL: Well-developed well-nourished. In no acute distress. NECK: No carotid bruits. No JVD. CARDIOVASCULAR: Regular rate and rhythm. Systolic murmur appreciated. RESPIRATORY: No accessory muscle use. Clear to auscultation. No basilar crackles. MUSCULOSKELETAL: No clubbing or cyanosis. No edema. NEUROLOGICAL: Awake and alert. Normal speech. 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 The patient presented with shortness of breath. Chest x-ray showed pleural effusion, pulmonary edema. Patient was treated by primary team for COPD exacerbation and oral diuretics continued. The patient had respiratory distress 12/02, guardian ad litem consulted, large pleural effusion identified on bedside ultrasound, emergent chest tube placed, patient's breathing now improved. Systolic CHF: Restart oral lasix Monitor I's and O's and renal function. Today mild elevation of creatinine after receiving extra fluids, resume diuresis. Output not recorded. cardiomyopathy: echo shows stable EF 20-25%, severe MR and elevated PAP 61mmHg Entresto added, add hold parameters. BB discontinued due to hypotension. aldactone dc'd due to renal fxn and hypotension. Troponin elevation: Demand mediated secondary to CHF and respiratory distress. History of TAVR: Stable. Respiratory distress secondary recurrent pleural effusion, s/p chest tube: continue supportive care <AndrewAri - Last Filed: 12/06/17 11:20> Physical Exam Vital signs: Vital Signs 12/05/17 12:00 12/05/17 16:00 12/05/17 16:44 Temperature 98.3 F 97.5 F L Pulse Rate 89 87 89 Respiratory Rate 18 20 14 Blood Pressure 92/52 L 96/53 L Pulse Oximetry 100 98 12/05/17 20:00 12/06/17 00:00 12/06/17 00:13 Temperature 97.8 F 97.8 F Pulse Rate 86 90 76 Respiratory Rate 16 18 18 Blood Pressure 105/54 L 98/53 L Pulse Oximetry 99 98 12/06/17 01:57 12/06/17 03:33 12/06/17 03:46 Temperature Pulse Rate 90 Respiratory Rate 18 16 18 Blood Pressure Pulse Oximetry 12/06/17 04:00 12/06/17 08:00 Temperature 97.6 F 97.7 F Pulse Rate 92 H 86 Respiratory Rate 16 18 Blood Pressure 102/55 L 104/55 L Pulse Oximetry 97 96 Intake & Output 12/05/17 12/06/17 12/06/17 18:59 06:59 18:59 Intake Total 1200 / 1200 100 / 100 100 / 100 Balance 1200 / 1200 100 / 100 100 / 100 Weight 0 g Intake: IV 1200 / 1200 100 / 100 100 / 100 Flexbumin 25% Inj 100 ML @ 60 100 / 100 100 / 100 100 / 100 mls/hr IV.SIG Q12H JOVANA Rx#: [id number] Levaquin 500 mg Premix Inj 500 100 / 100 mg In 100 ml @ 100 mls/hr IV. SIG Q24H JOVANA Rx#:[id number] NS Inj 1,000 ML @ 100 mls/hr IV 1000 / 1000 .SIG .Q10H ONE Rx#:[id number] Other: # Voids 1 Assessment and Plan - Assessment (1) Pleural effusion, left Code(s): J90 - Pleural effusion, not elsewhere classified Status: Acute (2) CHF (congestive heart failure) Code(s): I50.9 - Heart failure, unspecified Status: Chronic - Attending Attestation acute on chronic CHF cardiomyopathy + yesterday Cr improved. back to IV lasix entresto, hold if SBP < 90. she hasn't gotten entresto for two days. hypotensive Chest tube prognosis guarded. May need discussion about hospice. only other alternative if continuos intravenous dobatamine gtt + lasix IV if continued fluid retention. <Gomez Fisher - Last Filed: 12/06/17 08:05> (2) CHF (congestive heart failure) Qualifiers: Heart failure type: systolic <Ari Morales - Last Filed: 12/06/17 11:20> (2) CHF (congestive heart failure) Qualifiers: Heart failure type: systolic
[2017-12-06] MEDS: Tiotropium Bromide 18 MCG/ACT Inhaler INH SCH (08:59)
[2017-12-06] MEDS: Docusate Sodium 100 MG Capsule PO SCH ×2 (08:59→21:40)
[2017-12-06] MEDS: Benzonatate 100 MG Capsule PO SCH (08:59)
[2017-12-06] MEDS: Furosemide 20 MG Tablet PO SCH (08:59)
[2017-12-06] MEDS: Pantoprazole Sodium 20 MG DR Tablet PO SCH (08:59)
[2017-12-06 10:16] LABS: Calcium 9.8 mg/dL (8.5-10.1); Carbon Dioxide 26.6 meq/L (21.0-32.0); Potassium 4.8 meq/L (3.5-5.1)
[2017-12-06] MEDS ORDERED: Digoxin Inj 500 MCG/2 ML Ampul IV.PUSH ONE (11:34)
[2017-12-06] MEDS: Levofloxacin 500 mg Premix Inj 500 MG/100 ML PIGGYBACK IV.SIG SCH (16:09)
--- NOTE | 2017-12-06 18:01 | P.PNFP ---
Subjective Interval history: Denies Cp, Or SOB B/P on low side Results - Labs Result diagrams: 12/03/17 04:00 12/06/17 08:30 Abnormal lab results 12/06/17 Range/Units 08:30 Sodium 134 L (136-145) meq/L BUN 31 H (7-18) mg/dL Estimated GFR 65 L (>89) mL/min Random Glucose 136 H (74-106) mg/dL BMP 12/06/17 08:30 Sodium 134 L Potassium 4.8 Chloride 98 Carbon Dioxide 26.6 BUN 31 H Creatinine 0.86 Calcium 9.8 Physical Exam Vital signs: Vital Signs 12/05/17 20:00 12/06/17 00:00 12/06/17 00:13 Temperature 97.8 F 97.8 F Pulse Rate 86 90 76 Respiratory Rate 16 18 18 Blood Pressure 105/54 L 98/53 L Pulse Oximetry 99 98 12/06/17 01:57 12/06/17 03:33 12/06/17 03:46 Temperature Pulse Rate 90 Respiratory Rate 18 16 18 Blood Pressure Pulse Oximetry 12/06/17 04:00 12/06/17 08:00 12/06/17 11:39 Temperature 97.6 F 97.7 F Pulse Rate 92 H 86 84 Respiratory Rate 16 18 17 Blood Pressure 102/55 L 104/55 L Pulse Oximetry 97 96 95 12/06/17 12:00 12/06/17 15:52 12/06/17 16:00 Temperature 97.4 F L 97.5 F L Pulse Rate 85 69 76 Respiratory Rate 18 14 18 Blood Pressure 105/59 L 104/55 L Pulse Oximetry 99 98 Intake & Output 12/05/17 12/06/17 12/06/17 18:59 06:59 18:59 Intake Total 1200 / 1200 100 / 100 200 / 200 Balance 1200 / 1200 100 / 100 200 / 200 Weight 0 g Intake: IV 1200 / 1200 100 / 100 200 / 200 Flexbumin 25% Inj 100 ML @ 60 100 / 100 100 / 100 100 / 100 mls/hr IV.SIG Q12H JOVANA Rx#: [id number] Levaquin 500 mg Premix Inj 500 100 / 100 100 / 100 mg In 100 ml @ 100 mls/hr IV. SIG Q24H JOVANA Rx#:[id number] NS Inj 1,000 ML @ 100 mls/hr IV 1000 / 1000 .SIG .Q10H ONE Rx#:[id number] Other: # Voids 1 - Constitutional no acute distress - Routine HEENT Exam ENT: Present: mucous membranes moist - Routine Respiratory Exam Present: CTA bilaterally - Routine Cardiovascular Exam Present: S1, S2 - Routine Abdominal Exam Present: soft, normoactive bowel sounds - Routine Exam Perineum Description: Intact - Routine Skin Exam Present: intact - Routine Neurological Exam Present: alert, oriented X3 - Routine Psychiatric Exam Present: cooperative Assessment and Plan - Assessment (1) Pleural effusion, left Code(s): J90 - Pleural effusion, not elsewhere classified Status: Acute Plan: Chest tube placed on Fallen out on 12/04/17 (2) CHF (congestive heart failure) Code(s): I50.9 - Heart failure, unspecified Status: Chronic Plan: EF 20-25%, On lasix, Entresto started, Cardiology on board, Follow rec's. Current visit: Yes - Assessment and Plan 12/03/17 Chest tube placed, Breathing better. Cxr shows improvement of effusion. [employer] signed off , will be transferred to [facility] with cardiac monitoring. Pain controlled with Tylenol. requesting antacid for Heartburn. Vss afebrile. 12/04/17- Reports good night, breathing at ease, CT in place to left, pulmonary following. ordered. Still having some mild Reflux. Orders to transfer to [facility]. PT activity 12/05/17- Transferred to [facility], voices that during transfer CT came out. CXR show resolved effusion. Cardiology following for Chf, being diuresed. B/P low cont to monitor, labs in am. - 12/06/17- Late entry seen earlier this am 0730, Reports breathing better, B/P running low, Recently started on Entresto cont to monitor, Sat's are maintained , IV solu medrol, and bronchodilators. (2) CHF (congestive heart failure) Qualifiers: Heart failure type: systolic
--- NOTE | 2017-12-06 19:02 | P.PNPL ---
Subjective Interval history: 72 YOWF with COPD,Ca lung s/p SBRT, pl eff Left chest tube fell off On NC Mild sob No new complaint Still feels weak Physical Exam Vital signs: Vital Signs 12/05/17 20:00 12/06/17 00:00 12/06/17 00:13 Temperature 97.8 F 97.8 F Pulse Rate 86 90 76 Respiratory Rate 16 18 18 Blood Pressure 105/54 L 98/53 L Pulse Oximetry 99 98 12/06/17 01:57 12/06/17 03:33 12/06/17 03:46 Temperature Pulse Rate 90 Respiratory Rate 18 16 18 Blood Pressure Pulse Oximetry 12/06/17 04:00 12/06/17 08:00 12/06/17 11:39 Temperature 97.6 F 97.7 F Pulse Rate 92 H 86 84 Respiratory Rate 16 18 17 Blood Pressure 102/55 L 104/55 L Pulse Oximetry 97 96 95 12/06/17 12:00 12/06/17 15:52 12/06/17 16:00 Temperature 97.4 F L 97.5 F L Pulse Rate 85 69 76 Respiratory Rate 18 14 18 Blood Pressure 105/59 L 104/55 L Pulse Oximetry 99 98 Intake & Output 12/06/17 12/06/17 12/07/17 06:59 18:59 06:59 Intake Total 100 / 100 200 / 200 Balance 100 / 100 200 / 200 Weight 0 g Intake: IV 100 / 100 200 / 200 Flexbumin 25% Inj 100 ML @ 60 100 / 100 100 / 100 mls/hr IV.SIG Q12H JOVANA Rx#: [id number] Levaquin 500 mg Premix Inj 500 100 / 100 mg In 100 ml @ 100 mls/hr IV. SIG Q24H JOVANA Rx#:[id number] Other: # Voids 1 Narrative: GENERAL: Well-developed well-nourished. In no acute distress. NECK: No carotid bruits. No JVD. CARDIOVASCULAR: Regular rate and rhythm. Systolic murmur appreciated. RESPIRATORY: No accessory muscle use. Clear to auscultation. No basilar crackles. MUSCULOSKELETAL: No clubbing or cyanosis. No edema. NEUROLOGICAL: Awake and alert. Normal speech. Assessment and Plan - Plan Pleural effusion Dysnoea, improved COPD Ca lung, s/p SBRT PLAN: Aerosol nebs Diurease Cont Abx Supplement 02
[2017-12-07] MEDS: MethylPREDNISolone Sod Succinate Inj 125 MG/2 ML Vial IV.PUSH SCH ×3 (06:14→21:34)
[2017-12-07] MEDS: Albumin Human 25% Inj 100 ML IV.SIG SCH ×2 (06:14→17:20)
[2017-12-07] MEDS: Pantoprazole Sodium 20 MG DR Tablet PO SCH (08:09)
[2017-12-07] MEDS: Docusate Sodium 100 MG Capsule PO SCH ×2 (08:09→21:34)
[2017-12-07] MEDS: Digoxin 125 MCG Tablet PO SCH (08:09)
[2017-12-07] MEDS: Benzonatate 100 MG Capsule PO SCH (08:09)
[2017-12-07] MEDS: Tiotropium Bromide 18 MCG/ACT Inhaler INH SCH (08:10)
--- NOTE | 2017-12-07 08:28 | P.PNCA ---
Subjective Interval history: She feels like she is breathing better today and reports good urine output. Still with some abdominal bloating and constipation. Has received last 2 doses of Entresto BP has been doing well. Nursing staff reports 4 beat run of NSVT yesterday, telemetry reviewed, no definite NSVT seen, short atrial run vs SVT yesterday noted, asymptomatic. Physical Exam Vital signs: Vital Signs 12/06/17 11:39 12/06/17 12:00 12/06/17 15:52 Temperature 97.4 F L Pulse Rate 84 85 69 Respiratory Rate 17 18 14 Blood Pressure 105/59 L Pulse Oximetry 95 99 12/06/17 16:00 12/06/17 20:00 12/06/17 20:45 Temperature 97.5 F L 97.4 F L Pulse Rate 76 79 75 Respiratory Rate 18 18 14 Blood Pressure 104/55 L 100/56 L Pulse Oximetry 98 98 98 12/07/17 00:00 12/07/17 06:13 Temperature 97.6 F 97.6 F Pulse Rate 73 66 Respiratory Rate 18 18 Blood Pressure 107/56 L 103/52 L Pulse Oximetry 99 98 Intake & Output 12/06/17 12/07/17 12/07/17 18:59 06:59 18:59 Intake Total 200 / 200 220 / 220 Balance 200 / 200 220 / 220 Weight 106 lb 14.787 oz Intake: IV 200 / 200 100 / 100 Flexbumin 25% Inj 100 ML @ 60 100 / 100 100 / 100 mls/hr IV.SIG Q12H JOVANA Rx#: [id number] Levaquin 500 mg Premix Inj 500 100 / 100 mg In 100 ml @ 100 mls/hr IV. SIG Q24H JOVANA Rx#:[id number] Oral 120 / 120 Other: # Voids 2 Date of Last Bowel Movement 12/03/17 # Bowel Movements 0 Narrative: GENERAL: Well-developed well-nourished. In no acute distress. NECK: No carotid bruits. No JVD. CARDIOVASCULAR: Regular rate and rhythm. 2/6 systolic murmur appreciated. RESPIRATORY: No accessory muscle use. Clear to auscultation. Diminished breath sounds in the bases. MUSCULOSKELETAL: No clubbing or cyanosis. No edema. NEUROLOGICAL: Awake and alert. Normal speech. 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 The patient presented with shortness of breath. Chest x-ray showed pleural effusion, pulmonary edema. Patient was treated by primary team for COPD exacerbation and oral diuretics continued. The patient had respiratory distress 12/02, school bus aide consulted, large pleural effusion identified on bedside ultrasound, emergent chest tube placed, patient's breathing now improved. Systolic CHF: Monitor I's and O's and renal function. Renal function improved, continue IV Lasix for now. Output not recorded, discussed with RN. cardiomyopathy: echo shows stable EF 20-25%, severe MR and elevated PAP 61mmHg Entresto added. BB discontinued due to hypotension. aldactone dc'd due to renal fxn and hypotension. Troponin elevation: Demand mediated secondary to CHF and respiratory distress. History of TAVR: Stable. Respiratory distress secondary recurrent pleural effusion, s/p chest tube: continue supportive care (2) CHF (congestive heart failure) Qualifiers: Heart failure type: systolic
[2017-12-07] MEDS: Levofloxacin 500 mg Premix Inj 500 MG/100 ML PIGGYBACK IV.SIG SCH (16:12)
--- NOTE | 2017-12-07 18:05 | P.PNPL ---
Subjective Interval history: 72 YOWF with COPD,Ca lung s/p SBRT, pl eff Left chest tube fell off On NC Mild sob No new complaint Breathing treatments help, not requiring rescue inhaler Physical Exam Vital signs: Vital Signs 12/06/17 20:00 12/06/17 20:45 12/07/17 00:00 Temperature 97.4 F L 97.6 F Pulse Rate 79 75 73 Respiratory Rate 18 14 18 Blood Pressure 100/56 L 107/56 L Pulse Oximetry 98 98 99 12/07/17 06:13 12/07/17 08:00 12/07/17 08:25 Temperature 97.6 F 98.1 F Pulse Rate 66 69 Respiratory Rate 18 18 Blood Pressure 103/52 L 115/61 Pulse Oximetry 98 98 96 12/07/17 11:00 12/07/17 15:30 12/07/17 15:31 Temperature 97.2 F L 98.1 F 98.1 F Pulse Rate 63 67 67 Respiratory Rate 17 16 16 Blood Pressure 109/55 L 107/60 107/60 Pulse Oximetry 100 100 100 12/07/17 17:59 Temperature Pulse Rate Respiratory Rate Blood Pressure Pulse Oximetry 100 Intake & Output 12/06/17 12/07/17 12/07/17 18:59 06:59 18:59 Intake Total 200 / 200 220 / 220 Output Total 800 / 800 Balance 200 / 200 220 / 220 -800 / -800 Weight 48.5 kg Intake: IV 200 / 200 100 / 100 Flexbumin 25% Inj 100 ML @ 60 100 / 100 100 / 100 mls/hr IV.SIG Q12H JOVANA Rx#: [id number] Levaquin 500 mg Premix Inj 500 100 / 100 mg In 100 ml @ 100 mls/hr IV. SIG Q24H JOVANA Rx#:[id number] Oral 120 / 120 Output: Urine 800 / 800 Other: # Voids 2 Date of Last Bowel Movement 12/03/17 12/07/17 # Bowel Movements 0 1 Narrative: GENERAL: Well-developed well-nourished. In no acute distress. NECK: No carotid bruits. No JVD. CARDIOVASCULAR: Regular rate and rhythm. 2/6 systolic murmur appreciated. RESPIRATORY: No accessory muscle use. Clear to auscultation. Diminished breath sounds in the bases. MUSCULOSKELETAL: No clubbing or cyanosis. No edema. NEUROLOGICAL: Awake and alert. Normal speech. Assessment and Plan - Plan Pleural effusion Dysnoea, improved COPD Ca lung, s/p SBRT PLAN: Aerosol nebs Diurease Cont Abx Supplement 02 Stable from Pulm standpoint Available prn over weekend.
[2017-12-08] MEDS: MethylPREDNISolone Sod Succinate Inj 125 MG/2 ML Vial IV.PUSH SCH ×3 (07:03→23:00)
[2017-12-08] MEDS: Albumin Human 25% Inj 100 ML IV.SIG SCH ×2 (07:05→18:51)
--- NOTE | 2017-12-08 08:03 | P.PNCA ---
<Jackelin Rhodes Toshia - Last Filed: 12/08/17 07:59> Subjective Interval history: feeling well overnight. SBP dropped to 90, but asymptomatic. Hasn't ambulated in the past day. No chest pain, breathing is improving. Physical Exam Vital signs: Vital Signs 12/07/17 08:25 12/07/17 11:00 12/07/17 15:30 Temperature 97.2 F L 98.1 F Pulse Rate 63 67 Respiratory Rate 17 16 Blood Pressure 109/55 L 107/60 Pulse Oximetry 96 100 100 12/07/17 15:31 12/07/17 17:59 12/07/17 20:00 Temperature 98.1 F 97.4 F L Pulse Rate 67 62 Respiratory Rate 16 17 Blood Pressure 107/60 100/57 L Pulse Oximetry 100 100 99 12/08/17 00:18 12/08/17 04:00 Temperature 97.8 F 97.2 F L Pulse Rate 62 60 Respiratory Rate 20 16 Blood Pressure 91/51 L 92/54 L Pulse Oximetry 100 98 Intake & Output 12/07/17 12/08/17 12/08/17 18:59 06:59 18:59 Intake Total 200 / 200 100 / 100 Output Total 800 / 800 Balance -600 / -600 100 / 100 Weight 48.5 kg Intake: IV 200 / 200 100 / 100 Flexbumin 25% Inj 100 ML @ 60 100 / 100 100 / 100 mls/hr IV.SIG Q12H JOVANA Rx#: [id number] Levaquin 500 mg Premix Inj 500 100 / 100 mg In 100 ml @ 100 mls/hr IV. SIG Q24H JOVANA Rx#:[id number] Output: Urine 800 / 800 Other: Date of Last Bowel Movement 12/07/17 12/07/17 # Bowel Movements 1 Assessment and Plan - Assessment (1) Pleural effusion, left Code(s): J90 - Pleural effusion, not elsewhere classified Status: Acute (2) CHF (congestive heart failure) Code(s): I50.9 - Heart failure, unspecified Status: Chronic - Plan 72-year-old female with past medical history of TAVR 10/2016, systolic CHF/ cardiomyopathy EF 25%, COPD, history of lung cancer status post radiation with recurrent pleural effusion. The patient presented with shortness of breath. Chest x-ray showed pleural effusion, pulmonary edema. Patient was treated by primary team for COPD exacerbation and oral diuretics. The patient had respiratory distress 12/02, temporary administrative assistant consulted, large pleural effusion identified on bedside ultrasound, emergent chest tube placed, which has now been removed. Systolic CHF: Monitor I's and O's and renal function. Renal function improved. consider increased dose of furosemide. Currently 20mg daily. cardiomyopathy: echo shows stable EF 20-25%, severe MR and elevated PAP 61mmHg Entresto added and tolerating well. BB discontinued due to hypotension. aldactone dc'd due to renal fxn and hypotension. Troponin elevation: Demand mediated secondary to CHF and respiratory distress. History of TAVR: Stable. encourage ambulation as tolerated. <Ari Morales - Last Filed: 12/08/17 11:36> Physical Exam Vital signs: Vital Signs 12/07/17 15:30 12/07/17 15:31 12/07/17 17:59 Temperature 98.1 F 98.1 F Pulse Rate 67 67 Respiratory Rate 16 16 Blood Pressure 107/60 107/60 Pulse Oximetry 100 100 100 12/07/17 20:00 12/08/17 00:18 12/08/17 04:00 Temperature 97.4 F L 97.8 F 97.2 F L Pulse Rate 62 62 60 Respiratory Rate 17 20 16 Blood Pressure 100/57 L 91/51 L 92/54 L Pulse Oximetry 99 100 98 12/08/17 08:00 12/08/17 10:43 12/08/17 11:29 Temperature 97.9 F 98.0 F Pulse Rate 56 L 58 L Respiratory Rate 16 17 Blood Pressure 108/52 L 95/49 L Pulse Oximetry 98 97 100 Intake & Output 12/07/17 12/08/17 12/08/17 18:59 06:59 18:59 Intake Total 200 / 200 100 / 100 100 / 100 Output Total 800 / 800 800 / 800 Balance -600 / -600 100 / 100 -700 / -700 Weight 48.5 kg Intake: IV 200 / 200 100 / 100 100 / 100 Flexbumin 25% Inj 100 ML @ 60 100 / 100 100 / 100 100 / 100 mls/hr IV.SIG Q12H JOVANA Rx#: [id number] Levaquin 500 mg Premix Inj 500 100 / 100 mg In 100 ml @ 100 mls/hr IV. SIG Q24H JOVANA Rx#:[id number] Output: Urine 800 / 800 800 / 800 Other: Date of Last Bowel Movement 12/07/17 12/07/17 # Bowel Movements 1 Assessment and Plan - Assessment (1) Pleural effusion, left Code(s): J90 - Pleural effusion, not elsewhere classified Status: Acute (2) CHF (congestive heart failure) Code(s): I50.9 - Heart failure, unspecified Status: Chronic - Attending Attestation --------- changed to PO lasix continue entresto will not tolerate further medication titration DC planning will sign off call with further questions <Jackelin Rhodes - Last Filed: 12/08/17 07:59> (2) CHF (congestive heart failure) Qualifiers: Heart failure type: systolic <Ari Morales - Last Filed: 12/08/17 11:36> (2) CHF (congestive heart failure) Qualifiers: Heart failure type: systolic
[2017-12-08] MEDS: Benzonatate 100 MG Capsule PO SCH (09:21)
[2017-12-08] MEDS: Docusate Sodium 100 MG Capsule PO SCH ×2 (09:22→23:00)
[2017-12-08] MEDS: Pantoprazole Sodium 20 MG DR Tablet PO SCH (09:22)
[2017-12-08] MEDS: Digoxin 125 MCG Tablet PO SCH (09:26)
[2017-12-08] MEDS: Tiotropium Bromide 18 MCG/ACT Inhaler INH SCH (09:29)
--- NOTE | 2017-12-08 12:46 | P.PNFP ---
Subjective Interval history: doing well breathing stable Results - Labs Result diagrams: 12/03/17 04:00 12/06/17 08:30 Abnormal lab results 12/08/17 Range/Units 09:04 Digoxin 0.6 L (0.8-2.0) ng/mL Physical Exam Vital signs: Vital Signs 12/07/17 15:30 12/07/17 15:31 12/07/17 17:59 Temperature 98.1 F 98.1 F Pulse Rate 67 67 Respiratory Rate 16 16 Blood Pressure 107/60 107/60 Pulse Oximetry 100 100 100 12/07/17 20:00 12/08/17 00:18 12/08/17 04:00 Temperature 97.4 F L 97.8 F 97.2 F L Pulse Rate 62 62 60 Respiratory Rate 17 20 16 Blood Pressure 100/57 L 91/51 L 92/54 L Pulse Oximetry 99 100 98 12/08/17 08:00 12/08/17 10:43 12/08/17 11:29 Temperature 97.9 F 98.0 F Pulse Rate 53 L 58 L Respiratory Rate 16 17 Blood Pressure 108/52 L 95/49 L Pulse Oximetry 98 97 100 Intake & Output 12/07/17 12/08/17 12/08/17 18:59 06:59 18:59 Intake Total 200 / 200 100 / 100 100 / 100 Output Total 800 / 800 800 / 800 Balance -600 / -600 100 / 100 -700 / -700 Weight 48.5 kg Intake: IV 200 / 200 100 / 100 100 / 100 Flexbumin 25% Inj 100 ML @ 60 100 / 100 100 / 100 100 / 100 mls/hr IV.SIG Q12H JOVANA Rx#: [id number] Levaquin 500 mg Premix Inj 500 100 / 100 mg In 100 ml @ 100 mls/hr IV. SIG Q24H JOVANA Rx#:[id number] Output: Urine 800 / 800 800 / 800 Other: Date of Last Bowel Movement 12/07/17 12/07/17 # Bowel Movements 1 - Constitutional no acute distress - Routine HEENT Exam Head: Present: normocephalic, atraumatic Eye: Present: EOMI, PERRL - Routine Respiratory Exam Present: decreased breath sounds, CTA bilaterally - Routine Cardiovascular Exam Present: RRR - Routine Abdominal Exam Present: soft, normoactive bowel sounds - Routine Neurological Exam Present: alert, oriented X3 Assessment and Plan - Assessment (1) Pleural effusion, left Code(s): J90 - Pleural effusion, not elsewhere classified Status: Acute Plan: Chest tube placed on Fallen out on 12/04/17 will reasses cxr (2) CHF (congestive heart failure) Code(s): I50.9 - Heart failure, unspecified Status: Chronic Plan: EF 20-25%, On lasix, Entresto started, Cardiology on board, Follow rec's. Current visit: Yes - Assessment and Plan 12/03/17 Chest tube placed, Breathing better. Cxr shows improvement of effusion. Gang Plank Workman signed off , will be transferred to [facility] with cardiac monitoring. Pain controlled with Tylenol. requesting antacid for Heartburn. Vss afebrile. 12/04/17- Reports good night, breathing at ease, CT in place to left, pulmonary following. ordered. Still having some mild Reflux. Orders to transfer to [facility]. PT activity 12/05/17- Transferred to [facility], voices that during transfer CT came out. CXR show resolved effusion. Cardiology following for Chf, being diuresed. B/P low cont to monitor, labs in am. - 12/06/17- Late entry seen earlier this am 0730, Reports breathing better, B/P running low, Recently started on Entresto cont to monitor, Sat's are maintained , IV solu medrol, and bronchodilators. 12/08 reasses cxr and lab (2) CHF (congestive heart failure) Qualifiers: Heart failure type: systolic
--- NOTE | 2017-12-08 16:35 | XR ---
EXAM DATE: 12/08/2017 4:15 PM EDT AGE/SEX: 72 years / Female INDICATIONS: Cough. CLINICAL DATA: This is the patient's subsequent encounter. Patient reports that signs and symptoms h ave been present for 1 week and indicates a pain score of 0/10. MEDICAL/SURGICAL HISTORY: . Chronic obstructive pulmonary disease. Emphysema. Congestive heart failure. . Aortic valve replacement. COMPARISON: [facility] [place], CHEST 1V SINGLE AP, 12/04/2017. . FINDINGS: Small left effusion and trace right pleural fluid. Apical pleural thickening. Cardiomegaly. CONCLUSION: Cardiomegaly with trace pleural effusions, left greater than right. Electronically signed by: Tyler Ortiz MD 12/08/2017 4:33 PM EDT
[2017-12-08] MEDS: Levofloxacin 500 mg Premix Inj 500 MG/100 ML PIGGYBACK IV.SIG SCH (17:35)
[2017-12-08 22:31] LABS: Hematocrit 40.8 % (35.0-46.0); Hemoglobin 13.6 gm/dL (11.6-15.3); Lymph # (Auto) 0.2 th/mm3 (1.0-4.8); Lymph % (Auto) 2.7 % (9.0-44.0); Mean Corpuscular HGB Conc 33.3 % (32.0-36.0); Mean Platelet Volume 8.4 fL (7.0-11.0); Mono # (Auto) 0.5 th/mm3 (0.0-0.9); Mono % (Auto) 5.9 % (0.0-8.0); Neut # (Auto) 8.1 th/mm3 (1.8-7.7); Neut % (Auto) 91.4 % (16.0-70.0); Platelet Count 262 th/mm3 (150-450); Red Blood Count 4.39 mil/mm3 (4.00-5.30); Red Cell Distribution Width 13.7 % (11.6-17.2); White Blood Count 8.9 th/mm3 (4.0-11.0)
[2017-12-08 23:02] LABS: Carbon Dioxide 30.3 meq/L (21.0-32.0); Potassium 4.6 meq/L (3.5-5.1)
[2017-12-09] MEDS: MethylPREDNISolone Sod Succinate Inj 125 MG/2 ML Vial IV.PUSH SCH ×3 (06:44→21:51)
[2017-12-09] MEDS: Albumin Human 25% Inj 100 ML IV.SIG SCH ×2 (06:47→18:23)
[2017-12-09] MEDS: Docusate Sodium 100 MG Capsule PO SCH ×2 (08:43→21:51)
[2017-12-09] MEDS: Benzonatate 100 MG Capsule PO SCH (08:44)
[2017-12-09] MEDS: Pantoprazole Sodium 20 MG DR Tablet PO SCH (08:44)
[2017-12-09] MEDS: Tiotropium Bromide 18 MCG/ACT Inhaler INH SCH (08:45)
[2017-12-09] MEDS: Digoxin 125 MCG Tablet PO SCH (08:47)
[2017-12-09] MEDS: Furosemide 20 MG Tablet PO SCH (08:48)
--- NOTE | 2017-12-09 11:22 | P.DCO ---
- Occupational Therapy Order: Evaluate and treat - Home Health Nursing Order: Medical education - Home Health Aide Order: To assist in: scrap kettle tender and meal prep - Certification I have seen patient Mariana Lugo on 12/09/17. My clinical findings support the need for the requested home health care services because: Patient has SOB I certify that my clinical findings support that this patient is homebound because: Unsteady gait/balance, Poor cardiac reserve
--- NOTE | 2017-12-09 11:24 | P.PNFP ---
Subjective Interval history: slowly improving anticipate dc to home with [facility] Results - Labs Result diagrams: 12/08/17 21:53 12/08/17 21:53 Abnormal lab results 12/08/17 12/08/17 Range/Units 21:53 21:53 Neut % (Auto) 91.4 H (16.0-70.0) % Lymph % (Auto) 2.7 L (9.0-44.0) % Neut # (Auto) 8.1 H (1.8-7.7) th/mm3 Lymph # (Auto) 0.2 L (1.0-4.8) th/mm3 Sodium 131 L (136-145) meq/L Chloride 93 L (98-107) meq/L BUN 61 H (7-18) mg/dL Creatinine 1.39 H (0.50-1.00) mg/dL Estimated GFR 37 L (>89) mL/min Random Glucose 178 H (74-106) mg/dL Short CBC 12/08/17 Range/Units 21:53 WBC 8.9 (4.0-11.0) th/mm3 Hgb 13.6 (11.6-15.3) gm/dL Hct 40.8 (35.0-46.0) % Plt Count 262 (150-450) th/mm3 BMP 12/08/17 21:53 Sodium 131 L Potassium 4.6 Chloride 93 L Carbon Dioxide 30.3 BUN 61 H Creatinine 1.39 H Calcium 9.0 - Imaging Impressions Chest X-Ray 12/08/17 00:00 CONCLUSION: Cardiomegaly with trace pleural effusions, left greater than right. Physical Exam Vital signs: Vital Signs 12/08/17 11:29 12/08/17 16:00 12/08/17 20:00 Temperature 98.0 F 97.6 F 97.7 F Pulse Rate 58 L 58 L 58 L Respiratory Rate 17 17 18 Blood Pressure 95/49 L 98/55 L 98/56 L Pulse Oximetry 100 100 98 12/09/17 00:00 12/09/17 03:14 12/09/17 04:00 Temperature 97.5 F L 97.6 F Pulse Rate 53 L 48 L Respiratory Rate 18 18 18 Blood Pressure 100/52 L 110/53 L Pulse Oximetry 100 98 12/09/17 04:59 12/09/17 08:00 Temperature 97.6 F Pulse Rate 54 L Respiratory Rate 16 17 Blood Pressure 104/56 L Pulse Oximetry 100 Intake & Output 12/08/17 12/09/17 12/09/17 18:59 06:59 18:59 Intake Total 100 / 100 421 / 421 Output Total 800 / 800 700 / 700 Balance -700 / -700 -279 / -279 Intake: IV 100 / 100 200 / 200 Flexbumin 25% Inj 100 ML @ 60 100 / 100 100 / 100 mls/hr IV.SIG Q12H JOVANA Rx#: [id number] Levaquin 500 mg Premix Inj 500 100 / 100 mg In 100 ml @ 100 mls/hr IV. SIG Q24H JOVANA Rx#:[id number] Oral 221 / 221 Output: Urine 800 / 800 700 / 700 Other: # Voids 1 Date of Last Bowel Movement 12/08/17 - Constitutional no acute distress - Routine HEENT Exam Head: Present: normocephalic, atraumatic Eye: Present: EOMI, PERRL ENT: Present: mucous membranes moist - Routine Neck Exam Present: supple - Routine Respiratory Exam Present: decreased breath sounds, CTA bilaterally - Routine Cardiovascular Exam Present: RRR - Routine Abdominal Exam Present: soft, normoactive bowel sounds - Routine Neurological Exam Present: alert, oriented X3 - Detailed Neurological Exam: Coma Scale Eye Opening: Spontaneous Assessment and Plan - Assessment (1) Pleural effusion, left Code(s): J90 - Pleural effusion, not elsewhere classified Status: Acute Plan: Chest tube placed on Fallen out on 12/04/17 will reasses cxr (2) CHF (congestive heart failure) Code(s): I50.9 - Heart failure, unspecified Status: Chronic Plan: EF 20-25%, On lasix, Entresto started, Cardiology on board, Follow rec's. Current visit: Yes - Assessment and Plan 12/03/17 Chest tube placed, Breathing better. Cxr shows improvement of effusion. Cash Controller signed off , will be transferred to [facility] with cardiac monitoring. Pain controlled with Tylenol. requesting antacid for Heartburn. Vss afebrile. 12/04/17- Reports good night, breathing at ease, CT in place to left, pulmonary following. ordered. Still having some mild Reflux. Orders to transfer to [facility]. PT activity 12/05/17- Transferred to [facility], voices that during transfer CT came out. CXR show resolved effusion. Cardiology following for Chf, being diuresed. B/P low cont to monitor, labs in am. - 12/06/17- Late entry seen earlier this am 0730, Reports breathing better, B/P running low, Recently started on Entresto cont to monitor, Sat's are maintained , IV solu medrol, and bronchodilators. 12/08 reasses cxr and lab 12/09 will repeat cxr hhc face to face done anticipate dc home (2) CHF (congestive heart failure) Qualifiers: Heart failure type: systolic
[2017-12-09] MEDS: Levofloxacin 500 mg Premix Inj 500 MG/100 ML PIGGYBACK IV.SIG SCH (17:10)
[2017-12-10] MEDS: MethylPREDNISolone Sod Succinate Inj 125 MG/2 ML Vial IV.PUSH SCH ×3 (06:48→22:08)
[2017-12-10] MEDS: Albumin Human 25% Inj 100 ML IV.SIG SCH ×2 (06:52→18:33)
--- NOTE | 2017-12-10 09:30 | XR ---
EXAM DATE: 12/10/2017 9:14 AM EDT AGE/SEX: 72 years / Female INDICATIONS: Shortness of breath. Pleural effusion. CLINICAL DATA: This is the patient's subsequent encounter. Patient reports that signs and symptoms h ave been present for 1 week and indicates a pain score of 0/10. MEDICAL/SURGICAL HISTORY: . Chronic obstructive pulmonary disease. Emphysema. Congestive heart failure. . Aortic valve replacement. COMPARISON: [facility] [place], CHEST 2V PA&LAT, 12/08/2017. . FINDINGS: Previous percutaneous aortic valve replacement. Minimal blunting left cost sulcus. Right lung clear. Mild hyperinflation. Minimal apical pleural thickening. Mild compensated cardiomegaly. CONCLUSION: Mild compensated cardiomegaly with minimal blunting left costophrenic sulcus. Minimal improvement fro m comparison study. Electronically signed by: Benson Condon MD 12/10/2017 9:29 AM EDT
[2017-12-10] MEDS: Digoxin 125 MCG Tablet PO SCH (10:17)
[2017-12-10] MEDS: Benzonatate 100 MG Capsule PO SCH (10:18)
[2017-12-10] MEDS: Docusate Sodium 100 MG Capsule PO SCH ×2 (10:18→22:08)
[2017-12-10] MEDS: Furosemide 20 MG Tablet PO SCH (10:18)
[2017-12-10] MEDS: Pantoprazole Sodium 20 MG DR Tablet PO SCH (10:19)
[2017-12-10] MEDS: Tiotropium Bromide 18 MCG/ACT Inhaler INH SCH (10:19)
[2017-12-10] MEDS: Levofloxacin 500 mg Premix Inj 500 MG/100 ML PIGGYBACK IV.SIG SCH (16:23)
--- NOTE | 2017-12-10 16:43 | P.PNPL ---
Subjective Interval history: 72 YOWF with COPD,Ca lung s/p SBRT, pl eff Left chest tube fell off On NC Mild sob No new complaint Feels weak CXR minimal blunting of Left CPA Physical Exam Vital signs: Vital Signs 12/09/17 20:00 12/10/17 00:00 12/10/17 01:09 Temperature 97.3 F L 97.5 F L Pulse Rate 57 L 53 L 60 Respiratory Rate 18 16 Blood Pressure 95/50 L 102/55 L Pulse Oximetry 99 99 12/10/17 03:24 12/10/17 04:20 12/10/17 08:00 Temperature 97.4 F L Pulse Rate 62 57 L Respiratory Rate 18 16 Blood Pressure 111/57 L Pulse Oximetry 100 12/10/17 12:00 12/10/17 16:20 Temperature 97.9 F Pulse Rate 56 L 62 Respiratory Rate 17 Blood Pressure 110/53 L Pulse Oximetry 100 Intake & Output 12/09/17 12/10/17 12/10/17 18:59 06:59 18:59 Intake Total 100 / 100 200 / 200 Balance 100 / 100 200 / 200 Intake: IV 100 / 100 200 / 200 Flexbumin 25% Inj 100 ML @ 60 100 / 100 100 / 100 mls/hr IV.SIG Q12H JOVANA Rx#: [id number] Levaquin 500 mg Premix Inj 500 100 / 100 mg In 100 ml @ 100 mls/hr IV. SIG Q24H JOVANA Rx#:[id number] Other: # Voids 1 Date of Last Bowel Movement 12/09/17 Narrative: GENERAL: Well-developed well-nourished. In no acute distress. NECK: No carotid bruits. No JVD. CARDIOVASCULAR: Regular rate and rhythm. 2/6 systolic murmur appreciated. RESPIRATORY: No accessory muscle use. Clear to auscultation. Diminished breath sounds in the bases. MUSCULOSKELETAL: No clubbing or cyanosis. No edema. NEUROLOGICAL: Awake and alert. Normal speech. Assessment and Plan - Plan Pleural effusion Dysnoea, improved COPD Ca lung, s/p SBRT PLAN: Aerosol nebs Diurease Cont Abx Supplement 02 Stable from Pulm standpoint Ambulate
[2017-12-11] MEDS: Albumin Human 25% Inj 100 ML IV.SIG SCH (08:22)
[2017-12-11] MEDS: MethylPREDNISolone Sod Succinate Inj 125 MG/2 ML Vial IV.PUSH SCH (08:22)
--- NOTE | 2017-12-11 09:56 | P.PNFP ---
Subjective Interval history: pt has developed bruising about her f iliac crest no known injury Results - Labs Result diagrams: 12/08/17 21:53 12/08/17 21:53 Physical Exam Vital signs: Vital Signs 12/10/17 12:00 12/10/17 16:00 12/10/17 16:20 Temperature 97.9 F Pulse Rate 56 L 63 62 Respiratory Rate 17 Blood Pressure 110/53 L Pulse Oximetry 100 12/10/17 20:00 12/11/17 00:00 12/11/17 04:00 Temperature 98.5 F 98.2 F 97.3 F L Pulse Rate 64 66 59 L Respiratory Rate 20 16 18 Blood Pressure 102/55 L 100/58 L 106/57 L Pulse Oximetry 96 99 97 Intake & Output 12/10/17 12/11/17 12/11/17 18:59 06:59 18:59 Intake Total 100 / 100 580 / 580 Output Total 1100 / 1100 Balance 100 / 100 -520 / -520 Weight 48.9 kg Intake: IV 100 / 100 100 / 100 Flexbumin 25% Inj 100 ML @ 60 100 / 100 100 / 100 mls/hr IV.SIG Q12H JOVANA Rx#: [id number] Oral 480 / 480 Output: Urine 1100 / 1100 Other: Date of Last Bowel Movement 12/11/17 # Bowel Movements 1 Assessment and Plan - Assessment (1) Pleural effusion, left Code(s): J90 - Pleural effusion, not elsewhere classified Status: Acute Plan: Chest tube placed on Fallen out on 12/04/17 will reasses cxr (2) CHF (congestive heart failure) Code(s): I50.9 - Heart failure, unspecified Status: Chronic Plan: EF 20-25%, On lasix, Entresto started, Cardiology on board, Follow rec's. Current visit: Yes - Assessment and Plan 12/03/17 Chest tube placed, Breathing better. Cxr shows improvement of effusion. Resaw Operator signed off , will be transferred to [facility] with cardiac monitoring. Pain controlled with Tylenol. requesting antacid for Heartburn. Vss afebrile. 12/04/17- Reports good night, breathing at ease, CT in place to left, pulmonary following. ordered. Still having some mild Reflux. Orders to transfer to [facility]. PT activity 12/05/17- Transferred to [facility], voices that during transfer CT came out. CXR show resolved effusion. Cardiology following for Chf, being diuresed. B/P low cont to monitor, labs in am. - 12/06/17- Late entry seen earlier this am 0730, Reports breathing better, B/P running low, Recently started on Entresto cont to monitor, Sat's are maintained , IV solu medrol, and bronchodilators. 12/08 reasses cxr and lab 12/09 will repeat cxr hhc face to face done anticipate dc home (2) CHF (congestive heart failure) Qualifiers: Heart failure type: systolic
[2017-12-11] MEDS: Furosemide 20 MG Tablet PO SCH (11:01)
[2017-12-11] MEDS: Docusate Sodium 100 MG Capsule PO SCH ×2 (11:02→21:49)
[2017-12-11] MEDS: Digoxin 125 MCG Tablet PO SCH (11:02)
[2017-12-11] MEDS: Benzonatate 100 MG Capsule PO SCH (11:02)
[2017-12-11] MEDS: Tiotropium Bromide 18 MCG/ACT Inhaler INH SCH (11:03)
[2017-12-11] MEDS: Pantoprazole Sodium 20 MG DR Tablet PO SCH (11:07)
--- NOTE | 2017-12-11 11:45 | P.PNFP ---
Subjective Interval history: pt has developed brusing on right iliac crest Results - Labs Result diagrams: 12/08/17 21:53 12/08/17 21:53 Physical Exam Vital signs: Vital Signs 12/10/17 12:00 12/10/17 16:00 12/10/17 16:20 Temperature 97.9 F Pulse Rate 56 L 63 62 Respiratory Rate 17 Blood Pressure 110/53 L Pulse Oximetry 100 12/10/17 20:00 12/11/17 00:00 12/11/17 04:00 Temperature 98.5 F 98.2 F 97.3 F L Pulse Rate 64 66 59 L Respiratory Rate 20 16 18 Blood Pressure 102/55 L 100/58 L 106/57 L Pulse Oximetry 96 99 97 12/11/17 08:00 12/11/17 09:44 Temperature 98.3 F Pulse Rate 58 L Respiratory Rate 18 Blood Pressure 123/62 Pulse Oximetry 99 96 Intake & Output 12/10/17 12/11/17 12/11/17 18:59 06:59 18:59 Intake Total 100 / 100 580 / 580 Output Total 1100 / 1100 Balance 100 / 100 -520 / -520 Weight 48.9 kg Intake: IV 100 / 100 100 / 100 Flexbumin 25% Inj 100 ML @ 60 100 / 100 100 / 100 mls/hr IV.SIG Q12H JOVANA Rx#: [id number] Oral 480 / 480 Output: Urine 1100 / 1100 Other: Date of Last Bowel Movement 12/11/17 # Bowel Movements 1 - Constitutional no acute distress - Routine HEENT Exam Head: Present: normocephalic, atraumatic Eye: Present: EOMI, PERRL ENT: Present: mucous membranes moist - Routine Neck Exam Present: supple - Routine Respiratory Exam Present: decreased breath sounds, CTA bilaterally - Routine Cardiovascular Exam Present: RRR - Routine Abdominal Exam Present: soft, normoactive bowel sounds Comments: has brusing right iliac crest Assessment and Plan - Assessment (1) Pleural effusion, left Code(s): J90 - Pleural effusion, not elsewhere classified Status: Acute Plan: Chest tube placed on Fallen out on 12/04/17 will reasses cxr (2) CHF (congestive heart failure) Code(s): I50.9 - Heart failure, unspecified Status: Chronic Plan: EF 20-25%, On lasix, Entresto started, Cardiology on board, Follow rec's. Current visit: Yes - Assessment and Plan 12/03/17 Chest tube placed, Breathing better. Cxr shows improvement of effusion. Patron Attendant signed off , will be transferred to [facility] with cardiac monitoring. Pain controlled with Tylenol. requesting antacid for Heartburn. Vss afebrile. 12/04/17- Reports good night, breathing at ease, CT in place to left, pulmonary following. ordered. Still having some mild Reflux. Orders to transfer to [facility]. PT activity 12/05/17- Transferred to [facility], voices that during transfer CT came out. CXR show resolved effusion. Cardiology following for Chf, being diuresed. B/P low cont to monitor, labs in am. - 12/06/17- Late entry seen earlier this am 0730, Reports breathing better, B/P running low, Recently started on Entresto cont to monitor, Sat's are maintained , IV solu medrol, and bronchodilators. 12/08 reasses cxr and lab 12/09 will repeat cxr hhc face to face done anticipate dc home 12/11 will asses coag lab dc iv meds albumin and solumedrol begin po prednisone (2) CHF (congestive heart failure) Qualifiers: Heart failure type: systolic
--- NOTE | 2017-12-11 18:49 | P.PNPL ---
Subjective Interval history: 72 YOWF with COPD,Ca lung s/p SBRT, pl eff Left chest tube fell off On NC Mild sob Developed bruises, swelling rt side of abd, non tender Feels weak Physical Exam Vital signs: Vital Signs 12/10/17 20:00 12/11/17 00:00 12/11/17 04:00 Temperature 98.5 F 98.2 F 97.3 F L Pulse Rate 64 66 59 L Respiratory Rate 20 16 18 Blood Pressure 102/55 L 100/58 L 106/57 L Pulse Oximetry 96 99 97 12/11/17 08:00 12/11/17 09:44 12/11/17 12:00 Temperature 98.3 F 98.3 F Pulse Rate 58 L 63 Respiratory Rate 18 16 Blood Pressure 123/62 105/59 L Pulse Oximetry 99 96 100 12/11/17 16:00 Temperature 98.8 F Pulse Rate 62 Respiratory Rate 15 Blood Pressure 104/50 L Pulse Oximetry 98 Intake & Output 12/10/17 12/11/17 12/11/17 18:59 06:59 18:59 Intake Total 100 / 100 580 / 580 Output Total 1100 / 1100 800 / 800 Balance 100 / 100 -520 / -520 -800 / -800 Weight 48.9 kg Intake: IV 100 / 100 100 / 100 Flexbumin 25% Inj 100 ML @ 60 100 / 100 100 / 100 mls/hr IV.SIG Q12H JOVANA Rx#: [id number] Oral 480 / 480 Output: Urine 1100 / 1100 800 / 800 Other: Date of Last Bowel Movement 12/11/17 12/11/17 # Bowel Movements 1 Narrative: GENERAL: Well-developed well-nourished. In no acute distress. NECK: No carotid bruits. No JVD. CARDIOVASCULAR: Regular rate and rhythm. 2/6 systolic murmur appreciated. RESPIRATORY: No accessory muscle use. Clear to auscultation. Diminished breath sounds in the bases. MUSCULOSKELETAL: No clubbing or cyanosis. No edema. NEUROLOGICAL: Awake and alert. Normal speech. Assessment and Plan - Plan Pleural effusion Dysnoea, improved COPD Ca lung, s/p SBRT PLAN: Aerosol nebs Diurease Cont Abx Supplement 02 Ambulate
[2017-12-11] MEDS: predniSONE 20 MG Tablet PO SCH (21:49)
[2017-12-12] MEDS: Pantoprazole Sodium 20 MG DR Tablet PO SCH (09:22)
[2017-12-12] MEDS: Benzonatate 100 MG Capsule PO SCH (09:22)
[2017-12-12] MEDS: predniSONE 20 MG Tablet PO SCH ×2 (09:22→21:59)
[2017-12-12] MEDS: Furosemide 20 MG Tablet PO SCH (09:22)
[2017-12-12] MEDS: Docusate Sodium 100 MG Capsule PO SCH ×2 (09:22→21:59)
[2017-12-12] MEDS: Digoxin 125 MCG Tablet PO SCH (09:22)
[2017-12-12] MEDS: Tiotropium Bromide 18 MCG/ACT Inhaler INH SCH (09:32)
--- NOTE | 2017-12-12 10:03 | P.PNFP ---
Subjective Interval history: ok some bloating off iv meds no new bruising coag studies pending Results - Labs Result diagrams: 12/08/17 21:53 12/08/17 21:53 Physical Exam Vital signs: Vital Signs 12/11/17 12:00 12/11/17 16:00 12/11/17 20:00 Temperature 98.3 F 98.8 F 97.8 F Pulse Rate 63 62 63 Respiratory Rate 16 15 17 Blood Pressure 105/59 L 104/50 L 102/52 L Pulse Oximetry 100 98 98 12/11/17 21:42 12/12/17 00:00 12/12/17 04:00 Temperature 97.8 F 98.1 F Pulse Rate 79 59 L Respiratory Rate 17 16 Blood Pressure 104/53 L 111/53 L Pulse Oximetry 98 97 100 12/12/17 08:00 12/12/17 09:33 Temperature 97.3 F L Pulse Rate 55 L Respiratory Rate 18 Blood Pressure 110/54 L Pulse Oximetry 100 96 Intake & Output 12/11/17 12/12/17 12/12/17 18:59 06:59 18:59 Intake Total 150 / 150 Output Total 800 / 800 750 / 750 Balance -800 / -800 -600 / -600 Intake: Oral 150 / 150 Output: Urine 800 / 800 750 / 750 Other: Date of Last Bowel Movement 12/11/17 - Constitutional no acute distress - Routine HEENT Exam Head: Present: normocephalic, atraumatic Eye: Present: EOMI, PERRL ENT: Present: mucous membranes moist - Routine Neck Exam Present: supple - Routine Respiratory Exam Present: decreased breath sounds, CTA bilaterally - Routine Cardiovascular Exam Present: RRR - Routine Abdominal Exam Present: soft, normoactive bowel sounds - Routine Skin Exam Comments: abd bruisiing remains unchanged Assessment and Plan - Assessment (1) Pleural effusion, left Code(s): J90 - Pleural effusion, not elsewhere classified Status: Acute Plan: Chest tube placed on Fallen out on 12/04/17 will reasses cxr (2) CHF (congestive heart failure) Code(s): I50.9 - Heart failure, unspecified Status: Chronic Plan: EF 20-25%, On lasix, Entresto started, Cardiology on board, Follow rec's. Current visit: Yes - Assessment and Plan 12/03/17 Chest tube placed, Breathing better. Cxr shows improvement of effusion. Chip Crusher Operator signed off , will be transferred to [facility] with cardiac monitoring. Pain controlled with Tylenol. requesting antacid for Heartburn. Vss afebrile. 12/04/17- Reports good night, breathing at ease, CT in place to left, pulmonary following. ordered. Still having some mild Reflux. Orders to transfer to [facility]. PT activity 12/05/17- Transferred to [facility], voices that during transfer CT came out. CXR show resolved effusion. Cardiology following for Chf, being diuresed. B/P low cont to monitor, labs in am. - 12/06/17- Late entry seen earlier this am 0730, Reports breathing better, B/P running low, Recently started on Entresto cont to monitor, Sat's are maintained , IV solu medrol, and bronchodilators. 12/08 reasses cxr and lab 12/09 will repeat cxr [facility] face to face done anticipate dc home 12/11 will asses coag lab dc iv meds albumin and solumedrol begin po prednisone 12/12 now off all iv meds will moniter closely anticipate dc am if remains stable coag studies pending (2) CHF (congestive heart failure) Qualifiers: Heart failure type: systolic
[2017-12-12 12:47] LABS: INR 1.1 Ratio; Prothrombin Time 11.5 sec (9.8-11.6)
[2017-12-12 12:58] LABS: Calcium 9.3 mg/dL (8.5-10.1); Carbon Dioxide 24.5 meq/L (21.0-32.0); Potassium 5.1 meq/L (3.5-5.1)
--- NOTE | 2017-12-12 18:24 | P.PNPL ---
Subjective Interval history: 72 YOWF with COPD,Ca lung s/p SBRT, pl eff Left chest tube fell off On NC Mild sob Developed bruises, swelling rt side of abd, non tender Feels weak Grand daughter at BS Physical Exam Vital signs: Vital Signs 12/11/17 20:00 12/11/17 21:42 12/12/17 00:00 Temperature 97.8 F 97.8 F Pulse Rate 63 79 Respiratory Rate 17 17 Blood Pressure 102/52 L 104/53 L Pulse Oximetry 98 98 97 12/12/17 04:00 12/12/17 08:00 12/12/17 09:33 Temperature 98.1 F 97.3 F L Pulse Rate 59 L 55 L Respiratory Rate 16 18 Blood Pressure 111/53 L 110/54 L Pulse Oximetry 100 100 96 12/12/17 11:18 12/12/17 11:58 12/12/17 15:02 Temperature 97.4 F L Pulse Rate 55 L 61 60 Respiratory Rate 18 Blood Pressure 109/52 L Pulse Oximetry 97 12/12/17 16:00 Temperature 98 F Pulse Rate 63 Respiratory Rate 18 Blood Pressure 100/55 L Pulse Oximetry 96 Intake & Output 12/11/17 12/12/17 12/12/17 18:59 06:59 18:59 Intake Total 150 / 150 Output Total 800 / 800 750 / 750 Balance -800 / -800 -600 / -600 Intake: Oral 150 / 150 Output: Urine 800 / 800 750 / 750 Other: Date of Last Bowel Movement 12/11/17 GENERAL: SKIN: Warm and dry. HEAD: Normocephalic. EYES: No scleral icterus. No injection or drainage. NECK: Supple, trachea midline. No JVD or lymphadenopathy. CARDIOVASCULAR: Regular rate and rhythm without murmurs, gallops, or rubs. RESPIRATORY: Breath sounds equal bilaterally. No accessory muscle use. GASTROINTESTINAL: Abdomen soft, non-tender, nondistended. Swelling abdominal wall MUSCULOSKELETAL: No cyanosis, or edema. BACK: Nontender without obvious deformity. No CVA tenderness. Assessment and Plan - Plan Pleural effusion Dysnoea, improved COPD Ca lung, s/p SBRT PLAN: Aerosol nebs Diurease Cont Abx Supplement 02 Ambulate DW Family 02 Walk test
[2017-12-13] MEDS: predniSONE 20 MG Tablet PO SCH (08:21)
[2017-12-13] MEDS: Benzonatate 100 MG Capsule PO SCH (08:21)
[2017-12-13] MEDS: Docusate Sodium 100 MG Capsule PO SCH (08:22)
[2017-12-13] MEDS: Digoxin 125 MCG Tablet PO SCH (08:22)
[2017-12-13] MEDS: Furosemide 20 MG Tablet PO SCH (08:22)
[2017-12-13] MEDS: Pantoprazole Sodium 20 MG DR Tablet PO SCH (08:22)
[2017-12-13] MEDS: Tiotropium Bromide 18 MCG/ACT Inhaler INH SCH (09:35)
[2017-12-13] MEDS ORDERED: ALBUTEROL SULFATE 2.5 MG INHALATION PRN (17:39)
--- NOTE | 2017-12-13 17:53 | P.DS ---
Date of admission: 11/30/17 05:06 Primary care physician: Jayme Chavez DO Attending physician on discharge: nilo chavez do) Anticipated date of discharge: 12/13/17 Brief History from admission: pt admitted with chf and pleural effusion diuressed and thoracotomy tube installed pt gradually improved tube removed pt able to dc home on room air as she has passed her ambulation test will fu with pulmonology aneja and primary after dc DS: Diagnosis - Discharge Diagnosis (1) Pleural effusion, left Status: Acute (2) CHF (congestive heart failure) Status: Chronic DS: Summary Hospital Course: see summary admitted with chf and pleural effusion treated with thoracotomy tube effusion resolved tube removed now able to ambulate on room air will fu with primary and pulmonology after dc - Time Spent with Patient Total time spent providing and/or coordinating discharge services: Greater than 30 minutes - Quality: AMI Clinical Trial Participant: No Exam Vital signs: Vital Signs 12/12/17 20:00 12/13/17 00:00 12/13/17 04:00 Temperature 98.3 F 97.6 F 98.1 F Pulse Rate 99 H 62 66 Respiratory Rate 18 18 18 Blood Pressure 128/64 111/59 L 115/63 Pulse Oximetry 96 97 97 Pulse Oximetry [Exertion on Room Air] Pulse Oximetry [Resting on Room Air] 12/13/17 08:00 12/13/17 09:00 12/13/17 12:00 Temperature 97.4 F L 98.0 F Pulse Rate 62 58 L Respiratory Rate 20 20 Blood Pressure 110/55 L 114/59 L Pulse Oximetry 99 97 Pulse Oximetry [Exertion on Room Air] 96 Pulse Oximetry [Resting on Room Air] 98 12/13/17 16:00 Temperature 98.4 F Pulse Rate 65 Respiratory Rate 20 Blood Pressure 129/60 Pulse Oximetry 96 Pulse Oximetry [Exertion on Room Air] Pulse Oximetry [Resting on Room Air] Intake & Output 12/12/17 12/13/17 12/13/17 18:59 06:59 18:59 Intake Total 240 / 240 Output Total 900 / 900 950 / 950 Balance -900 / -900 -710 / -710 Intake: Oral 240 / 240 Output: Urine 900 / 900 950 / 950 Other: Date of Last Bowel Movement 12/13/17 # Bowel Movements 1 Results Procedures completed during hospitalization: thoracotomy tube left lung Pending studies at discharge: Pending at discharge 12/02/17 Cytology [PTH] Routine Labs on day of discharge: Preliminary micro results at discharge 12/02/17 16:00 Fungal Culture - Preliminary Fluid - Pleural fluid No growth in 1 week 12/02/17 16:00 Mycobacterial Culture - Preliminary Fluid - Pleural fluid No growth in 1 week - Impressions ITS Impressions Chest X-Ray 12/10/17 00:00 CONCLUSION: Mild compensated cardiomegaly with minimal blunting left costophrenic sulcus. Minimal improvement from comparison study. Discharge Plan - Discharge Disposition Patient Disposition: Discharge Home - Discharge Condition Condition: Fair - Discharge Order Discharge Orders: Discharge Order (Routine); Ordered 12/13/17 Ordered By: Jayme Chavez - Discharge Details Anticipated Discharge Date: 12/06/17 Discharge Comment: dc home fu with primary and pulmonology - Physicians Team Primary Care Provider: Jayme Chavez Attending Provider: Jayme Chavez Other Providers: Ari Morales MD ; Rodri Tolbert MD ; [facility] ; Star Coley MD - Rxs /Orders / Referrals /Forms Prescriptions: Continue albuterol sulfate 2.5 mg /3 mL (0.083 %) Solution For Nebulization 2.5 mg INHALATION Q6H PRN (Reason: Shortness Of Breath) albuterol sulfate [Ventolin HFA] 90 mcg/actuation Hfa Aerosol Inhaler 2 puff INHALATION TID aspirin 81 mg Tablet,Chewable 81 mg PO DAILY benzonatate [Tessalon Perles] 100 mg Capsule 100 mg PO DAILY carvedilol 3.125 mg Tablet 3.125 mg PO BID cholecalciferol (vitamin D3) 5,000 unit Capsule 5,000 unit PO DAILY clopidogrel 75 mg Tablet 75 mg PO DAILY docusate sodium [Dulcolax Stool Softener (dss)] 100 mg Capsule 100 mg PO BID furosemide 20 mg Tablet 20 mg PO DAILY omeprazole 20 mg Capsule,Delayed Release(Dr/Ec) 20 mg PO DAILY tiotropium bromide [Spiriva with HandiHaler] 18 mcg Capsule, W/Inhalation Device 1 cap INHALATION DAILY Referrals: Jayme Chavez, [Primary Care Provider] - See Instructions
[2017-12-13] MEDS ORDERED: Non-Formulary Drug (Albuterol Sulfate 2 PUFF) INHALATION SCH (18:00)
--- NOTE | 2017-12-13 18:09 | P.PNPL ---
Subjective Interval history: 72 YOWF with COPD,Ca lung s/p SBRT, pl eff Mild sob Ambulates maintains sat on Ambulation Physical Exam Vital signs: Vital Signs 12/12/17 20:00 12/13/17 00:00 12/13/17 04:00 Temperature 98.3 F 97.6 F 98.1 F Pulse Rate 99 H 62 66 Respiratory Rate 18 18 18 Blood Pressure 128/64 111/59 L 115/63 Pulse Oximetry 96 97 97 Pulse Oximetry [Exertion on Room Air] Pulse Oximetry [Resting on Room Air] 12/13/17 08:00 12/13/17 09:00 12/13/17 12:00 Temperature 97.4 F L 98.0 F Pulse Rate 62 58 L Respiratory Rate 20 20 Blood Pressure 110/55 L 114/59 L Pulse Oximetry 99 97 Pulse Oximetry [Exertion on Room Air] 96 Pulse Oximetry [Resting on Room Air] 98 12/13/17 16:00 Temperature 98.4 F Pulse Rate 65 Respiratory Rate 20 Blood Pressure 129/60 Pulse Oximetry 96 Pulse Oximetry [Exertion on Room Air] Pulse Oximetry [Resting on Room Air] Intake & Output 12/12/17 12/13/17 12/13/17 18:59 06:59 18:59 Intake Total 240 / 240 Output Total 900 / 900 950 / 950 Balance -900 / -900 -710 / -710 Intake: Oral 240 / 240 Output: Urine 900 / 900 950 / 950 Other: Date of Last Bowel Movement 12/13/17 # Bowel Movements 1 GENERAL: MBMN WF,NAD SKIN: Warm and dry. HEAD: Normocephalic. EYES: No scleral icterus. No injection or drainage. NECK: Supple, trachea midline. No JVD or lymphadenopathy. CARDIOVASCULAR: Regular rate and rhythm without murmurs, gallops, or rubs. RESPIRATORY: Breath sounds equal bilaterally. No accessory muscle use. GASTROINTESTINAL: Abdomen soft, non-tender, nondistended. MUSCULOSKELETAL: No cyanosis, or edema. BACK: Nontender without obvious deformity. No CVA tenderness. Assessment and Plan - Plan Pleural effusion Dysnoea, improved COPD Ca lung, s/p SBRT PLAN: Aerosol nebs Diurease Cont Abx Ambulate Stable on RA DC plans underway. Progress Note: Quality - AMI Clinical Trial Participant: No
[2017-12-13] MEDS ORDERED: DOCUSATE SODIUM 100 MG PO SCH (21:00)
[2017-12-13] MEDS ORDERED: CARVEDILOL 3.125 MG PO SCH (21:00)
[2017-12-14] MEDS ORDERED: CHOLECALCIFEROL 5000 UNIT PO SCH (09:00)
[2017-12-14] MEDS ORDERED: CLOPIDOGREL 75 MG PO SCH (09:00)
[2017-12-14] MEDS ORDERED: [UNRECOGNIZED DRUG - OTHER] PO SCH (09:00)
[2017-12-14] MEDS ORDERED: BENZONATATE 100 MG PO SCH (09:00)
[2017-12-14] MEDS ORDERED: TIOTROPIUM BROMIDE INHALATION SCH (09:00)
== END 2017-12-13 20:15 | disposition home or self-care (01) ==
LOC: N03 05:06 → N07 12-01 17:35 → N03 12-02 15:21 → N05 12-04 15:22
PROVIDERS: ADMIT Family Medicine; ATTEND Family Medicine